=== PATIENT | female | born 1985 | race Caucasian/White ===

== ENCOUNTER 2020-04-26 18:55 | Inpatient (IN) | payer SELFPAY ==
[2020-04-26] VITALS (16 sets, daily range): BP systolic 106–239; BP diastolic 37–175; PULSE 89–137; RESP 12–36; TEMP 37.7; O2SAT 67–97; BMI 59.7
--- NOTE | 2020-04-26 19:29 | XR_ITS ---
WS: [id number] EXAM: AP CHEST: PORTABLE UPRIGHT DATE OF EXAM: 04/26/2020, 1938 hours COMPARISON: NONE HISTORY: Patient is 34 years old with hypertension, retaining fluids. Ulcers on legs. FINDINGS: The cardiac silhouette is slightly enlarged. The mediastinal contours are normal. The pulmonary vascularity is congested. No definite findings of pulmonary edema. The lungs are clear of infiltrate . There is no effusion or pneumothorax. No acute bony abnormality is seen. Enlarged body habitus c ausing attenuation artifact on the examination. XR/XR chest 1V portable [id number] IMPRESSION: Slight pulmonary vascular congestion. No pulmonary edema or consolidating infil trate. Findings suggesting enlargement of the cardiac silhouette. PA and latera l imaging follow-up recommended.
--- NOTE | 2020-04-26 19:30 | ECG_ITS ---
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 Measurements Intervals [place] Rate: 100 P: 48 AL: 137 QRS: -19 QRSD: 113 T: 112 QT: 345 QTc: 446 Interpretive Statements SINUS TACHYCARDIA POSSIBLE LEFT ATRIAL ENLARGEMENT [-0.1mV P WAVE IN V1/V2] No previous ECG available for comparison Electronically Signed On 04-27-2020 13:38:22 CDT by Abhishek Garcia M.D. [email or web address].[id number]
--- NOTE | 2020-04-26 19:33 | W.ED.SOB ---
HPI - SOB/Dyspnea General: Chief Complaint: Shortness of Breath/Dyspnea Stated Complaint: multiple complaints,phy ref Time Seen by Provider: 04/26/20 19:25 Source: patient Mode of arrival: ambulatory Limitations: no limitations History of Present Illness: HPI Narrative: 34-year-old female with a history of high blood pressure and states she has been having difficulty with swallowing for months. She was on Lasix but states she is not currently. Patient states been having shortness of breath over the last day. Patient is in severe distress here and cyanotic. She is tachypneic as well. She is quite hypertensive with blood pressure 239/175. Her oxygen saturation was 67% when she arrived. She denies any vomiting. She denies any chest pain. She states she has had swelling to her legs along with chronic sores. MD elicited complaint: shortness of breath Associated symptoms: Deny abdominal pain, chest pain, fever(s), nausea or vomiting Review of Systems Const: Denies: fever(s), chills, body aches or change in appetite Eyes: Denies: blurry vision or eye discomfort ENMT: Denies: throat pain or dental pain Card: Denies: chest pain Resp: Reports: dyspnea GI: Denies: abdominal pain, nausea, vomiting or diarrhea : Denies: dysuria Musc: Denies: neck pain or back pain Skin/Breast: Reports: erythema, skin swelling and sores Neuro: Denies: headache(s) Psych: Denies: depression Victor Hugo/Lymph: Denies: easy bruising All/Imm: Denies: urticaria Physical Exam Const: COMMON NORMALS: patient oriented x3 GENERAL APPEARANCE: in distress and ill appearing HENMT: COMMON NORMALS: normocephalic and atraumatic HEAD & SCALP: normocephalic and atraumatic Eye: COMMON NORMALS: Equal, round and reactive pupils present and EOMs intact bilaterally PUPIL: Yes Equal, round and reactive pupils present Neck/C-Spine: COMMON NORMALS: full ROM and supple Chest: COMMONS NORMALS: normal inspection of the chest and normal palpation of entire chest wall Resp: EFFORT & INSPECTION: Yes tachypneic, Yes respiratory distress and Yes tripod positioning AUSCULTATION: rales Cardio: COMMON NORMALS: regular rhythm and No murmurs present (Cardio) RATE: tachycardic RHYTHM: regular rhythm GI: COMMON NORMALS: Normal to inspection, nondistended, normoactive bowel sounds present, Soft to palpation, non-tender and no masses PALPATION: Yes Soft to palpation Extremity: COMMON NORMALS: full ROM NARRATIVE EXTREMITY EXAM: Chronic ulcers along with 3+ pitting edema to lower extremities. Neuro: COMMON NORMALS: patient oriented x3, moves all extremities and no focal motor deficits Psych: COMMON NORMALS: mental status grossly normal, Normal thought process present and cooperative THOUGHT PROCESS: Normal thought process present Skin: COMMON NORMALS: no rashes or lesions noted and no wounds GENERAL SKIN EXAM: no rashes or lesions noted Procedures Intubation sedative: Etomidate Mg Given: 20 paralytic: Succinylcholine Mg Given: 250 Laryngoscope: Roberto Carlos ET Tube Size: 8 Tube Secured Depth (cm): 24 Tube Secured Location: teeth Tube Placement Confirmation: visualized tube passing through cords, equal breath sounds bilaterally, no breath sounds over epigastrium and confirmation by capnometry Patient Tolerated Procedure: well Intubation Complications: none Course Vital Signs: Vital signs: Vital Signs Pulse Rate 116 H 04/26/20 21:01 Respiratory Rate 12 04/26/20 20:20 Blood Pressure 137/79 04/26/20 21:01 Pulse Oximetry 90 04/26/20 21:01 MDM - SOB/Dyspnea MDM Narrative: Medical decision making narrative: Patient presents with respiratory failure with hypercapnia. Patient was trialed on BiPAP and CO2 did not improve. Patient continued to be obtunded as well. Patient was intubated here. Patient appears to be fluid overloaded and will start on Lasix. Patient also has wheezings and airways very tight as well and we will continue to give breathing treatments. I spoke to hospitalist will admit at this time. Lab Data: Labs: Lab Results 04/26/20 04/26/20 04/26/20 Range/Units 19:33 19:33 19:33 WBC 11.9 H (4.0-10.0) 10^3/ uL RBC 6.40 H (4.1-5.3) 10^6/u L Hgb 18.3 H (11.5-15.3) g/dL Hct 60.6 H (37.0-47.0) % MCV 94.7 (81-99) fL MCH 28.6 (28.0-34.0) pg MCHC 30.2 (30.0-36.0) g/dL RDW 18.6 H (12.1-15.1) % Plt Count 219 (130-400) 10^3/c mm MPV 10.6 H (7.4-10.4) fL Neut % (Auto) 86.1 % Lymph % (Auto) 6.1 % [place] % (Auto) 6.5 % Eos % (Auto) 0.6 % Baso % (Auto) 0.4 % Neut # (Auto) 10.21 H (1.8-7.7) 10^3/u L Lymph # (Auto) 0.7 L (0.8-4.8) 10^3/u L [place] # (Auto) 0.8 (0.2-0.9) 10^3/u L Eos # (Auto) 0.1 (0.0-0.8) 10^3/u L Baso # (Auto) 0.1 (0.0-0.1) 10^3/u L Nucleated RBC % (a uto) 0 % Nucleated RBCs # 0.0 /100WBC PT 17.00 H (12.1-14.9) SECO NDS INR 1.33 H (0.8-1.2) Specimen Type Sample Site ABG pH (7.35-7.45) ABG pCO2 (35-45) mmHg ABG pO2 (80.0-100.0) mmH g ABG HCO3 (22-26) mmol/L ABG Base Excess (-2.0-2.0) mmol/ L Aiden Test Hematocrit (37-47) % O2 Delivery Device FiO2 % Leasing Assistant ID Sodium 142 (136-145) mmol/L Potassium 3.5 (3.5-5.1) mmol/L Chloride 95 L (98-107) mmol/L Carbon Dioxide 34 H (22-29) mmol/L Anion Gap 16.5 (5-19) BUN 17 (6-20) mg/dL Creatinine 0.7 (0.5-0.9) mg/dL GFR Calculation 95.2 (90-130) mL/min Glucose 172 H (65-115) mg/dL Calculated Osmolal ity 294 (285-295) mOsm/k g Calcium 9.2 (8.5-10.5) mg/dL Total Bilirubin 1.2 (0.15-1.2) mg/dL AST 48 H (0-32) U/L ALT 39 H (0-33) U/L Alkaline Phosphata se 104 (35-105) IU/L Troponin T Baselin e (0-10) ng/L NT-Pro-B Natriuret Pep 4885 H (0-125) pg/mL Total Protein 8.3 (6.6-8.7) g/dL Albumin 3.6 (3.5-5.2) g/dL Globulin 4.7 H (1.3-4.6) g/dL 04/26/20 04/26/20 04/26/20 Range/Units 19:33 20:10 20:50 WBC (4.0-10.0) 10^3/ uL RBC (4.1-5.3) 10^6/u L Hgb (11.5-15.3) g/dL Hct (37.0-47.0) % MCV (81-99) fL MCH (28.0-34.0) pg MCHC (30.0-36.0) g/dL RDW (12.1-15.1) % Plt Count (130-400) 10^3/c mm MPV (7.4-10.4) fL Neut % (Auto) % Lymph % (Auto) % [place] % (Auto) % Eos % (Auto) % Baso % (Auto) % Neut # (Auto) (1.8-7.7) 10^3/u L Lymph # (Auto) (0.8-4.8) 10^3/u L [place] # (Auto) (0.2-0.9) 10^3/u L Eos # (Auto) (0.0-0.8) 10^3/u L Baso # (Auto) (0.0-0.1) 10^3/u L Nucleated RBC % (a uto) % Nucleated RBCs # /100WBC PT (12.1-14.9) SECO NDS INR (0.8-1.2) Specimen Type Arterial Arterial Sample Site Radial, left Radial, left ABG pH 7.17 L* 7.19 L (7.35-7.45) ABG pCO2 101.0 H* 101.0 H* (35-45) mmHg ABG pO2 185.0 H 80.4 (80.0-100.0) mmH g ABG HCO3 36.9 H 38.5 H (22-26) mmol/L ABG Base Excess 3.3 H 4.9 H (-2.0-2.0) mmol/ L Aiden Test Pos Pos Hematocrit 55.3 H 55.3 H (37-47) % O2 Delivery Device Bipap Bipap FiO2 100.0 60.0 % Leasing Assistant ID serape trent Sodium (136-145) mmol/L Potassium (3.5-5.1) mmol/L Chloride (98-107) mmol/L Carbon Dioxide (22-29) mmol/L Anion Gap (5-19) BUN (6-20) mg/dL Creatinine (0.5-0.9) mg/dL GFR Calculation (90-130) mL/min Glucose (65-115) mg/dL Calculated Osmolal ity (285-295) mOsm/k g Calcium (8.5-10.5) mg/dL Total Bilirubin (0.15-1.2) mg/dL AST (0-32) U/L ALT (0-33) U/L Alkaline Phosphata se (35-105) IU/L Troponin T Baselin e 75 H (0-10) ng/L NT-Pro-B Natriuret Pep (0-125) pg/mL Total Protein (6.6-8.7) g/dL Albumin (3.5-5.2) g/dL Globulin (1.3-4.6) g/dL EKG Data^: EKG 1: Attestation: I personally reviewed and interpreted this EKG as follows: EKG Interpretation Date: 04/26/20 EKG interpretation time: 19:50 Interpretation: sinus tach hr [address] or t wave abnormalities qrs 113 qtc 402 Critical Care Time Critical Care Time: Critical Care Time: Yes Total Critical Care Time: 35 Attestation: This case had a high probability of a clinically significant, sudden, or life threatening deterioration of this patient's condition which required my full and direct attention, intervention and personal management. Discharge Plan Discharge Patient Disposition: Admitted As Inpatient Clinical Impression: Respiratory failure with hypercapnia Condition: Stable Prescriptions: No Action triamcinolone acetonide 0.1 % ointment See Rx Instructions .ROUTE .COMPLEX RF: 0 metoprolol tartrate 50 mg tablet 50 mg PO BID RF: 0 buspirone 7.5 mg tablet 7.5 mg PO BID RF: 0 furosemide 20 mg tablet 20 mg PO DAILY RF: 0 escitalopram oxalate 10 mg tablet 10 mg PO DAILY RF: 0 hydrochlorothiazide 12.5 mg tablet 12.5 mg PO BID RF: 0 cholecalciferol (vitamin D3) 1,250 mcg (50,000 unit) capsule 1,250 mcg PO Q7D RF: 0 Coding Level of Care Code ED 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
[2020-04-26] MEDS: labetalol 5 mg/mL SDV 20mL 20 MG IVP (19:38)
[2020-04-26] MEDS: ondansetron 2 mg/ML SDV 2 mL 4 MG IVP (19:39)
[2020-04-26] MEDS: morphine 4 mg/mL SDV 1 mL IVP (19:40)
[2020-04-26] MEDS: LORazepam 2 mg/mL INJ 1 mL 1 MG IVP (19:42)
[2020-04-26 20:13] LABS: Basophils # 0.1 10^3/uL (0.0-0.1); Basophils % 0.4 %; Eosinophils # 0.1 10^3/uL (0.0-0.8); Eosinophils % 0.6 %; Hematocrit 60.6 % (37.0-47.0); Hemoglobin 18.3 g/dL (11.5-15.3); Lymphocytes # 0.7 10^3/uL (0.8-4.8); Lymphocytes % 6.1 %; Mean Corpuscular HGB Conc 30.2 g/dL (30.0-36.0); Mean Corpuscular Hemoglobin 28.6 pg (28.0-34.0); Mean Corpuscular Volume 94.7 fL (81-99); Mean Platelet Volume 10.6 fL (7.4-10.4); Monocytes # 0.8 10^3/uL (0.2-0.9); Monocytes % 6.5 %; Neutrophils # 10.21 10^3/uL (1.8-7.7); Neutrophils % 86.1 %; Nucleated Red Blood Cells % 0 %; Platelet Count 219 10^3/cmm (130-400); Red Cell Distribution Width 18.6 % (12.1-15.1); White Blood Count 11.9 10^3/uL (4.0-10.0)
[2020-04-26] MEDS: naloxone 0.4 mg/ml SDV (20:15)
[2020-04-26 20:23] LABS: Arterial Blood Gas Hematocrit 55.3 % (37-47); Base Excess ABG 3.3 mmol/L (-2.0-2.0); Blood Gas Allen Test Pos; Blood Gas Sample Site Radial, left; Blood Gas Sample Type Arterial; HCO3 ABG 36.9 mmol/L (22-26); Oxygen Device BIPAP
[2020-04-26 20:24] LABS: ABG PH Result 7.17 (7.35-7.45)
--- NOTE | 2020-04-26 20:36 | PC.NURSE ---
Patient's O2 sats are 84% on Bipap. Notified MD Menendez. Awaiting orders.
--- NOTE | 2020-04-26 20:47 | PC.NURSE ---
MD Menendez aware of Patient's current VS. Awaiting new orders.
[2020-04-26 20:52] LABS: Troponin(5th) Baseline 75 ng/L (0-10)
[2020-04-26 20:57] LABS: ABG PH Result 7.19 (7.35-7.45); Arterial Blood Gas Hematocrit 55.3 % (37-47); Base Excess ABG 4.9 mmol/L (-2.0-2.0); Blood Gas Allen Test Pos; Blood Gas Sample Site Radial, left; Blood Gas Sample Type Arterial; HCO3 ABG 38.5 mmol/L (22-26); Oxygen Device BIPAP; PO2 ABG 80.4 mmHg (80.0-100.0)
[2020-04-26 21:01] LABS: Alanine Aminotransferase 39 U/L (0-33); Albumin Level 3.6 g/dL (3.5-5.2); Alkaline Phosphatase 104 IU/L (35-105); Anion Gap 16.5 (5-19); Aspartate Amino Transferase 48 U/L (0-32); Blood Urea Nitrogen 17 mg/dL (6-20); Calcium 9.2 mg/dL (8.5-10.5); Carbon Dioxide 34 mmol/L (22-29); Chloride 95 mmol/L (98-107); Globulin 4.7 g/dL (1.3-4.6); Glomerular Filtration Rate 95.2 mL/min (90-130); Glucose 172 mg/dL (65-115); NT Pro B Type Natriuretic Pept 4885 pg/mL (0-125); Osmolality Calculated 294 mOsm/kg (285-295); Potassium 3.5 mmol/L (3.5-5.1); Sodium 142 mmol/L (136-145); Total Bilirubin 1.2 mg/dL (0.15-1.2); Total Protein 8.3 g/dL (6.6-8.7)
[2020-04-26 21:02] LABS: INR 1.33 (0.8-1.2)
--- NOTE | 2020-04-26 21:22 | XR_ITS ---
WS: [id number] EXAM: AP CHEST: PORTABLE SUPINE DATE OF EXAM: 04/26/2020, 2122 hours COMPARISON: Chest x-ray from earlier on the same date. HISTORY: Patient is 34 years old with respiratory failure. Status post intubation. FINDINGS: The cardiac silhouette is enlarged and similar. The mediastinal contours show interval placement o f an endotracheal tube ending almost at the level of the enrique. Withdrawing slightly recommended. En teric tube crosses the thoracic esophagus overlies the left upper abdomen. The distal aspect of the t ube is not visualized but the side port appears overlying the area of the stomach. The pulmonary va scularity is congested. There is some minimal infiltrate now present in the left hemithorax apex and in the left mid and lower chest. Presumably atelectasis. Some minimal infiltrate right lung base als o most likely atelectasis. There is no effusion or pneumothorax. No acute bony abnormality is seen. XR/XR chest 1V portable [id number] IMPRESSION: Supporting devices in satisfactory position. New minimal infiltrate bilaterally most likely related to atelectasis.
--- NOTE | 2020-04-26 21:30 | ECG_ITS ---
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 Measurements Intervals [place] Rate: 96 P: 27 IL: 153 QRS: 6 QRSD: 117 T: 147 QT: 367 QTc: 464 Interpretive Statements SINUS RHYTHM MODERATE INTRAVENTRICULAR CONDUCTION DELAY [110+ ms QRS DURATION] ST DEVIATION AND MODERATE T-WAVE ABNORMALITY, CONSIDER LATERAL ISCHEMIA [-0.1+ mV T WAVE IN I/aVL/V5/V6] Compared to ECG 04/26/2020 19:50:16 Intraventricular conduction delay now present T-wave abnormality now present Possible ischemia now present Sinus tachycardia no longer present Myocardial infarct finding no longer present Electronically Signed On 04-27-2020 18:13:35 CDT by Abhishek Garcia M.D. [id number]
--- NOTE | 2020-04-26 21:51 | P.HP_ITS ---
Providers/Chief Complaint Chief Complaint: multiple complaints,phy ref History of Present Illness Kari East is a 34 year old female who was brought in by her today for chief complaint of respiratory distress. is at the bedside who is endorsing that for last 2 weeks his was struggling to manage her daily activities on her own, he was helping her going to the bathroom, change clothes etc., he did not notice any fever, excessive sputum production, no recent sick contacts. Since September she has been gaining weight, for her morbid obesity she was started on phentermine which was discontinued after development of skin rash, this medication was started about 6 weeks ago and was discontinued about in a week. She does not carry previous history of CHF, no history of diabetes or hypo-/hyperthyroidism. She does smoke about 1 pack/day, does not drink alcohol. is stating that today they went to the PCP for skin rash, worsening respiratory distress who recommended her to go to the ER right away. Recently she has started taking Lasix and hydrochlorothiazide. She does not use any CPAP or BiPAP at home, no sleep study has been obtained, is endorsing that she sleeps on her stomach with her arms fixed on the sides of the couch. Diagnosis in the ER revealed hypoxic hypercapnic respiratory failure, CHF, high BNP, chest x-ray revealed cardiomegaly with pulmonary venous congestion, significant delta troponin Second EKG showing T wave inversion in lead I and aVL with mild ST depression in lateral leads I have started her on therapeutic dose of Lovenox, started ACS protocol Requested second blood gas At the time of my evaluation she was intubated, Dr. Menendez intubated her because of her respiratory distress, it was a difficult intubation, glide scope was used, he noticed a lot of upper airway secretions. ET tube size 8, chest x-ray reviewed Review of Systems General: Reports: ROS unobtainable due to endotracheal tube Const: Denies: fatigue Medications/Allergies Home Medications Medication Instructions Recorded Confirmed Last Taken Type buspirone 7.5 mg PO BID 04/26/20 04/26/20 04/26/20 History cholecalciferol (vitamin D3) 1,250 mcg PO Q7D 04/26/20 04/26/20 04/25/20 History escitalopram oxalate 10 mg PO DAILY 04/26/20 04/26/20 04/26/20 History furosemide 20 mg PO DAILY 04/26/20 04/26/20 04/26/20 History hydrochlorothiazide 12.5 mg PO BID 04/26/20 04/26/20 04/26/20 History metoprolol tartrate 50 mg PO BID 04/26/20 04/26/20 04/26/20 History triamcinolone acetonide See Rx Instructions .ROUTE .COMPLEX 04/26/20 04/26/20 04/26/20 History Allergies Allergy/AdvReac Type Severity Reaction Status Date / Time ciprofloxacin [From Cipro] Allergy Unknown Unknown Verified 04/26/20 20:10 PFSH Acute PFSH: Medical History Hypertension Morbid obesity Nicotine dependence Polycystic ovary Surgical History H/O adenoidectomy History of tonsillectomy Family History (Updated 04/26/20 @ 22:32 by Vijay Zamarripa MD) Other CAD (coronary artery disease) Hypertension Social History Smoking and tobacco status: heavy tobacco smoker cigarettes [ Other cigarette details: 1 pack/day ] Alcohol intake: current Alcohol intake frequency: holidays/special occasions only Substance/Drug Use: never Household members: family Vitals/I&O/Wt Last Vital Signs Pulse 116 H 04/26/20 21:01 Resp 16 04/26/20 21:41 BP 137/79 04/26/20 21:01 Pulse Ox 90 04/26/20 21:01 Weight last 48 hrs Weight 167.829 kg Physical Exam Narrative: EXAM NARRATIVE: Morbidly obese female currently intubated ET tube size 8, PRVC vent settings tidal volume 450, PEEP 8, FiO2 80%, Currently saturating well, ST depression with T wave inversion noted on second EKG, Anasarca Clear secretions coming from her mouth Severe CHF presentation clinically I did not appreciate any murmur Bilateral assisted breath sounds Skin blister and rash on left wrist area, left knee dried deep punctate lesion Bilateral lower extremity edema with venous stasis dermatitis, hyperemia of left lower extremity Neurological exam not possible because of intubation Abdominal wall edema Data : 04/26/20 19:33 04/26/20 19:33 A&P Assessment and plan (1) Airway intubation performed without difficulty: Status: Acute (2) Acute respiratory failure with hypoxia and hypercapnia: Status: Acute (3) Respiratory failure: Status: Acute (4) New onset of congestive heart failure: Status: Acute (5) Respiratory failure with hypercapnia: Status: Acute Qualifiers: Chronicity: acute Qualified Code(s): J96.02 - Acute respiratory failure with hypercapnia (6) Polycythemia: Status: Acute (7) Obesity hypoventilation syndrome: Status: Acute (8) Sepsis: Status: Acute (9) NSTEMI (non-ST elevated myocardial infarction): Status: Acute Additional A&P Information Sepsis with acute hypoxic hypercarbic respiratory failure Differentials include secondary to new onset CHF with underlying pickwickian syndrome, rule out ACS, PE No outpatient sleep study has been obtained, Propofol for sedation Intubated with ET tube size 8, second blood gas has been reviewed, I have decreased PEEP to 5 and FiO2 50% A lot of upper airway secretions noticed, I would keep her on vancomycin &Zosyn for now, she is septic at this point, she has mild leukocytosis with tachycardia and tachypnea initial presentation, not a candidate for aggressive fluid resuscitation, currently blood pressure stable New onset CHF Echo in the morning, check TSH, lipid profile, Second EKG showing T wave inversion in lead I aVL, second troponin with significant delta, started ACS protocol Rule out PE, I highly doubt she will be able to fit into CT scan machine, start her on full dose therapeutic Lovenox dose Bumex 1 mg every 12, closely monitor for worsening of rash as per the phentermine was discontinued, I am not sure if Lasix also contributed to her skin rash as well if that is the case she will need ethacrynic acid Skin rash Closely monitor as I am giving her Bumex, as per the phentermine was discontinued after development of skin blisters and rash Currently on vancomycin for MRSA coverage Lower extremity venous stasis dermatitis with hyperemia Highly suspicious for DVT Currently on therapeutic dose of Lovenox Will obtain venous Doppler Pickwickian syndrome with polycythemia Patient is a chronic smoker Her bicarb on BMP is greater than 28 which is consistent with obesity hypoventilation syndrome, she would definitely benefit from close follow-up with bariatric clinic Full code N.p.o. DVT prophylaxis not needed currently on Lovenox Attestations Medical Necessity Statement*: Anticipating stay in the hospital cross more than 2 midnights currently need aggressive diuresis for new CHF exacerbation, currently on ACS protocol, intubated for respiratory stress Time Spent in Patient Care: (>than 50% of time spent in counselling and/or direct pt care on unit) . 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
--- NOTE | 2020-04-26 21:53 | PC.NURSE ---
2113 - HR 116 BP 137/79 O2 93 on Bipap. 2114 - 20 mg Etimodate given R AC IV 250 mg Succinylcholine given R AC IV 2115 - 8 Tajik ET tube placed via Dr. Menendez 26 at the lip. 2117 - 18 Tajik OG tube placed via Vineet RODRIGUEZ. 2118 - Chest Xray revealed tubed needed to be pulled out 2 cm. 2121 - ET tube pulled to 24 at the lip. 2144 - 2nd Xray confirmed correct placement of the ET tube and OG. 2149 - RT suctioned pink frothy sputum out of patient's ET tube. 2154 - Inpatient MD at bedside performing initial assessment.
--- NOTE | 2020-04-26 22:18 | PC.NURSE ---
18 Amharic urinary catheter placed with the assistance of Karis ALBA and Alis RODRIGUEZ. Patient has 4+ edema in her groin.
[2020-04-26] MEDS: FUROsemide 10 mg/mL SDV 10mL 60 MG IVP (22:24)
--- NOTE | 2020-04-26 22:35 | PC.NURSE ---
Patient's left. Patient has no belongings at bedside at this time.
[2020-04-27] VITALS (99 sets, daily range): BP systolic 105–158; BP diastolic 52–90; PULSE 73–120; RESP 16–20; TEMP 37–37.6; O2SAT 85–96
[2020-04-27 00:06] LABS: D Dimer 12.62 ug/mIFEU (0-0.59)
[2020-04-27 00:09] LABS: Chol HDL Ratio 3.67 mg/dL (0.0-4.40); Cholesterol 165 mg/dL (0-200); HDL Cholesterol 45 mg/dL (60-100); LDL Cholesterol Calculated 103 mg/dL (50-129); LDL HDL Ratio 2.29 RATIO (0.00-3.22); Thyroid Stimulating Hormone 1.41 uIU/mL (0.27-4.20); Triglycerides 84 mg/dL (0-150)
[2020-04-27] MEDS: clopidogrel 300 mg Tablet NG-TUBE (00:21)
[2020-04-27] MEDS: aspirin 325 mg EC Tablet XX (00:21)
--- NOTE | 2020-04-27 00:36 | PC.PHAR ---
Vancomycin is dosed at 1500mg IVPB every 8 hours to produce a predicted trough level of 12.29 (population based pharmacokinetic analysis). A trough level has been ordered from the lab to be obtained before the fourth dose to confirm and adjust if needed. The Zosyn is dosed at 3.375gm IVPB every 8 hours based on creatinine clearance of 181.88, each dose to be infused over 4 hours per extended infusion protocol.
[2020-04-27] MEDS: bumetanide 0.25 mg/mL SDV 10 mL 1 MG IV (00:53)
[2020-04-27] MEDS: enoxaparin 80 mg/0.8 mL Syringe 70 MG SUBCUT ×3 (00:54→23:15)
[2020-04-27] MEDS: enoxaparin 100 mg/mL Syringe SUBCUT ×3 (00:55→23:15)
[2020-04-27] MEDS: propofol 1,000 MG/100 ML INJ 20.1 MG IV ×2 (00:55→05:11)
[2020-04-27 01:20] LABS: Basophils % 0.2 %; Eosinophils % 0.1 %; Hematocrit 54.1 % (37.0-47.0); Hemoglobin 16.2 g/dL (11.5-15.3); Lymphocytes # 0.3 10^3/uL (0.8-4.8); Lymphocytes % 1.5 %; Mean Corpuscular HGB Conc 29.9 g/dL (30.0-36.0); Mean Corpuscular Hemoglobin 27.9 pg (28.0-34.0); Mean Corpuscular Volume 93.3 fL (81-99); Mean Platelet Volume 10.7 fL (7.4-10.4); Monocytes % 5.6 %; Neutrophils # 15.88 10^3/uL (1.8-7.7); Neutrophils % 92.3 %; Nucleated Red Blood Cells % 0 %; Platelet Count 221 10^3/cmm (130-400); Red Cell Distribution Width 17.8 % (12.1-15.1); White Blood Count 17.2 10^3/uL (4.0-10.0)
[2020-04-27] MEDS: piperacillin-tazobactam 3.375 GM in sodium chloride 0.9% (plus) 50 ML IV ×4 (01:30→23:14)
--- NOTE | 2020-04-27 01:30 | ECG_ITS ---
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 Measurements Intervals [place] Rate: 85 P: 21 NH: 164 QRS: 10 QRSD: 132 T: 182 QT: 397 QTc: 473 Interpretive Statements SINUS RHYTHM INTRAVENTRICULAR CONDUCTION DELAY [130+ ms QRS DURATION] Compared to ECG 04/26/2020 21:55:28 T-wave abnormality no longer present Possible ischemia no longer present Electronically Signed On 04-27-2020 18:12:45 CDT by Abhishek Garcia M.D. [id number]
[2020-04-27 01:36] LABS: Anion Gap 10.8 (5-19); Blood Urea Nitrogen 19 mg/dL (6-20); Calcium 8.2 mg/dL (8.5-10.5); Carbon Dioxide 34 mmol/L (22-29); Chloride 100 mmol/L (98-107); Glomerular Filtration Rate 81.6 mL/min (90-130); Glucose 192 mg/dL (65-115); Osmolality Calculated 294 mOsm/kg (285-295); Potassium 3.8 mmol/L (3.5-5.1); Sodium 141 mmol/L (136-145)
[2020-04-27 01:38] LABS: Troponin 5 6HR 99.07 ng/L (0-10)
[2020-04-27 01:41] LABS: Troponin 5 6HR Delta 24.07 ng/L (0-12)
[2020-04-27] MEDS: ipratropium-albuterol 3 mL Neb INHALATION ×6 (02:46→20:17)
[2020-04-27 05:13] LABS: ABG PCO2 52.2 mmHg (35-45); ABG PH Result 7.46 (7.35-7.45); Arterial Blood Gas Hematocrit 50.2 % (37-47); Base Excess ABG 10.9 mmol/L (-2.0-2.0); Blood Gas Allen Test Pos; Blood Gas Operator Identificat JB; Blood Gas Sample Site Radial, right; Blood Gas Sample Type Arterial; Blood Gas Tidal Volume 0.45; HCO3 ABG 37.1 mmol/L (22-26); Oxygen Device VENT
[2020-04-27] MEDS: propofol 1,000 MG/100 ML INJ 30.2 MG IV (07:13)
[2020-04-27] MEDS: lisinopril 10 mg Tablet PO (08:40)
[2020-04-27] MEDS: atorvastatin 40 mg Tablet 80 MG NG-TUBE (08:40)
[2020-04-27] MEDS: clopidogrel 75 mg Tablet NG-TUBE (08:41)
[2020-04-27] MEDS: aspirin 81 mg EC Tablet XX (08:41)
[2020-04-27 08:50] LABS: Estmated Average Glucose 148; Hemoglobin A1C 6.8 % (4.0-6.0)
--- NOTE | 2020-04-27 09:26 | P.PN_ITS ---
Subjective Subjective: Interval history: History and physical reviewed in detail. At time of this note I did not yet contacted family regarding further history. Patient is sedated, on ventilator currently. Medications: Reviewed: Yes Vitals/I&O/Wt Last Vital Signs Temp 99.0 F 04/27/20 05:30 Pulse 82 04/27/20 07:55 Resp 16 04/27/20 07:57 BP 147/75 04/27/20 07:30 Pulse Ox 90 04/27/20 07:55 04/26/20 04/27/20 04/27/20 22:59 06:59 14:59 Intake Total 360.967 / 360.967 83.723 / 83.723 Output Total 1700 / 1700 Balance -1339.033 / -1339.033 83.723 / 83.723 Weight last 48 hrs Weight 167.829 kg Physical Exam Narrative: EXAM NARRATIVE: General exam demonstrates a sedated female, who appears comfortable. HEENT: Patient sedated. Endotracheal tube noted. Neck is supple, obese Cardiovascular regular rate and rhythm, heart sounds distant Lungs a faint expiratory wheeze Abdomen is soft, obese, edema noted with evidence of chronic edema with induration demonstrates Loredo Extremities 3+ edema, woody edema. Significant erythema lower extremities bilaterally. Cap refill less than 2 seconds great toes bilaterally Neurologic: Sedated Urinary Catheter Management^: Loredo: Cath Placed During This Visit: yes Urinary Catheter Date of Insertion: 04/27/20 Urinary Catheter Time of Insertion: 22:16 Data : 04/27/20 01:10 04/27/20 01:10 Other data: Chest x-ray, ventilator settings, ABG all reviewed. A&P Assessment and plan (1) Acute respiratory failure with hypoxia and hypercapnia: Etiology probably multifactorial. She likely has obesity hypoventilation. Heart failure may have contributed, likely diastolic and chronic. Cannot rule out COPD, pulmonary hypertension, severe sleep apnea, contributing pneumonia, or possibility of pulmonary emboli currently.. Check Covid 19 Currently on pressure control, FiO2 of 75%. Secondary to high settings, initial difficult intubation, multiple comorbidities we will have pulmonary critical care evaluate the patient as well. Propofol, fentanyl for sedation Status: Acute (2) New onset of congestive heart failure: Continue Bumex 2 mg IV every 12 hours Await echocardiogram Status: Acute (3) Obesity hypoventilation syndrome: Will likely need BiPAP at night when discharged from the hospital Status: Acute (4) Sepsis: Concern regarding possibility of pneumonia Concern regarding possibility of cellulitis of lower extremities although this may represent venous stasis with hyperemia. Awaiting venous duplex as well. For now continue vancomycin and Zosyn Check blood cultures Check sputum culture She is fluid overloaded. It is contraindicated to give significant IV fluids Status: Acute (5) NSTEMI (non-ST elevated myocardial infarction): Continue statin, Plavix, aspirin, full anticoagulation Initiate beta-tali low dose. She was on this at home and I want to prevent any beta-tali withdrawal. Status: Acute Additional A&P Information Tobacco dependency History of hypertension Full code Lovenox will serve for DVT prophylaxis Attestations Medical Necessity Statement*: Needs continued hospital stay secondary to respiratory failure requiring ventilatory support Critical Care Time: 43 minutes of critical care time spent at bedside and reviewing patient's case, visiting with nursing and subspecialties, developing plan in this critically ill patient with high risk for decompensation. Coding Level of Care Code Acute Automotive Product Specialist for Nalini Manning Diagnoses Acute respiratory failure with hypoxia and hypercapnia J96.01; J96.02 New onset of congestive heart failure I50.9 Obesity hypoventilation syndrome E66.2 Sepsis A41.9 NSTEMI (non-ST elevated myocardial infarction) I21.4
[2020-04-27 09:35] LABS: SARS Covid-2 Antigen Negative (Negative)
[2020-04-27 10:29] LABS: Hepatitis A Antibody IgM Non-Reactive (Nonreactive); Hepatitis B Core IgM Non-Reactive (Nonreactive); Hepatitis B Surface Antigen Non-Reactive (Nonreactive); Hepatitis C Virus Antibody Non-Reactive (Nonreactive)
[2020-04-27] MEDS: propofol 1,000 MG/100 ML INJ 50 MG IV (10:55)
[2020-04-27] MEDS: bumetanide 0.25 mg/mL SDV 10 mL 2 MG IV ×2 (12:07→23:14)
[2020-04-27] MEDS: propofol 1,000 MG/100 ML INJ 25 MG IV (12:08)
--- NOTE | 2020-04-27 12:10 | XR_ITS ---
WS: [id number] EXAM: AP CHEST: PORTABLE UPRIGHT DATE OF EXAM: 04/27/2020, 1237 hours COMPARISON: Chest x-ray from one day prior. HISTORY: Patient is 34 years old with PICC line placement. FINDINGS: The cardiac silhouette is enlarged but similar. The mediastinal contours are similar. Endotracheal tube and enteric tube remain in place. Endotracheal tube in good position. New right-sided PICC line ends in the SVC region. The pulmonary vascularity is congested. Progression in bibasilar infiltra lachelle left greater than right has occurred. The right lateral aspect of the chest is not included on e dataset. Small left effusion. No pneumothorax. No acute bony abnormality is seen. XR/XR chest 1V portable [id number] IMPRESSION: PICC line ends in the SVC region. Endotracheal tube in satisfactory position. I ncreasing bibasilar infiltrates and small left effusion
--- NOTE | 2020-04-27 14:58 | PC.NURSE ---
PATIENTS MOTHER AND UPDATED ON CONDITION OF PATIENT AND THAT THEY WOULD NOT BE ABLE TO TRULY VISIT UNTIL SHE WAS OFFICIALLY CLEARED OF COVID. THEY WERE TOLD ABOUT HER HIGH NEEDS ON THE VENT AND THEY SHARED WITH ME THAT SHE HAD SEEN SOME DOCTORS ABOUT HER RASHES AND SWELLING BUT HAD HAD A BAD REACTION TO LASIX AND ONE DOCTOR PUT HER ON PREDNISONE THINKING SHE HAD POISON VICKIE. HER SWELLING HAD GOTTEN SO BAD HER WAS HAVING TO DO HER YAO CARE FOR HER . SHE CLAIMED HER BAD KNEE MADE HER GAIN WEIGHT TO THIS EXTENT. THE CHF DIAGNOSIS HAD BEEN TOLD TO HER BACK IN SEP OF THIS YEAR BUT SHE WAS IN DENIAL . SHE HAS TWO CHILDREN ONE BEING A SPECIAL NEEDS CHILD. SHE WAS AFRAID TO COME SOONER FOR MOREDETAILED CARE SHE IS UNINSURED.
--- NOTE | 2020-04-27 15:08 | NUR.SHIFT ---
PATIENT HAS NO TOLERANCE FOR TURNING OR LAYING FLAT. HER ABDOMEN IS VERY HARD AND DISTENDED. THE LEFT SIDE HAS BOGGY EDEMA , MIDDLE ARE IS TAUT AND THE RIGHT SIDE IS RIPPLED AND HARD. HER SATS WENT TO 60 ON AQUICK ROLL IN THE BARIATRIC BED USING THE AIR FLOW BLANKET AND WE HAD TO GO UP TO 100% FIO2 TO RECOVER HER 93% SATS. PILLOW TURNS ARE NOW DONE WHILE BLANKET INFLATED AND 2 PILLOWS PLACED 10 SECONDS OF DISTURBANCE AND HER SATS STILL DROP FOR A FEW MINUTES. HER SAID SHE HAS REFUSED TO MOVE OFTEN EVIDENCED BY HER SORES AND DIRTY SKIN. ALSO SAID SHE CAN NO LONGER SHOWER OR WIPE HERSELF. SHE WOULD BENEFIT FROM REHAB.
[2020-04-27] MEDS: propofol 1,000 MG/100 ML INJ 20 MG IV (15:42)
--- NOTE | 2020-04-27 15:42 | PM.CONSULT ---
Providers/Reason For Consult Consulting Physican/Specialty*: Dr. Garcia Datar/pulmonology Reason for Consult*: Ventilator management Attending Physician: El Clarso MD History of Present Illness History of Present Illness Kari East is a 34 year old female went to the PCP for skin rash and found to be in respiratory distress and brought to ER by her . As per the patient is unable to do her daily activities for the last 2 weeks. He reported not noticing any fever, cough, no recent sick contacts. Since September she has been gaining weight, for her morbid obesity she was started on phentermine which was discontinued after development of skin rash, this medication was started about 6 weeks ago and was discontinued about in a week. No prior history of CHF, diabetes, or hypo-/hyperthyroidism. She does smoke about 1 pack/day. Recently she has started taking Lasix and hydrochlorothiazide. She does not use any CPAP or BiPAP at home, no sleep study has been obtained, is endorsing that she sleeps on her stomach with her arms fixed on the sides of the couch. Labs on admission show hypoxic hypercapnic respiratory failure, high BNP, and imaging revealed cardiomegaly with pulmonary venous congestion, significant delta troponin. Second EKG showing T wave inversion in lead I and aVL with mild ST depression in lateral leads. Started on Lovenox therapeutic dose as per ACS protocol and patient was intubated in the ED. As per the ED physician it was a difficult intubation with a lot of upper airway secretions. Called for ventilator management and evaluation for possible extubation morbidly obese patient with possible obesity hypoventilation syndrome/CHF Review of Systems General: Reports: ROS unobtainable due to mental status Meds/Allergies Home Medications and Allergies Home Medications Medication Instructions Recorded Confirmed Last Taken Type cholecalciferol (vitamin D3) 1,250 mcg PO Q7D 04/26/20 04/26/20 04/25/20 History escitalopram oxalate 10 mg PO DAILY 04/26/20 04/26/20 04/26/20 History hydrochlorothiazide 12.5 mg PO BID 04/26/20 04/26/20 04/26/20 History metoprolol tartrate 50 mg PO BID 04/26/20 04/26/20 04/26/20 History triamcinolone acetonide See Rx Instructions .ROUTE .COMPLEX 04/26/20 04/26/2004/26/20 History Allergies Allergy/AdvReac Type Severity Reaction Status Date / Time ciprofloxacin [From Cipro] Allergy Unknown Unknown Verified 04/26/20 20:10 Current Medications Current Medications Generic Name Dose Route Start Last Admin Trade Name Freq PRN Reason Stop Dose Admin Albuterol/Ipratropium 3 ml 04/27/20 09:00 04/27/20 14:51 Duoneb INHALATION 3 ml Q6H.RESPIRATORY JOSE LUIS Administration Aspirin 81 mg 04/27/20 09:00 04/27/20 08:41 Aspirin Ec XX 81 mg DAILY JOSE LUIS Administration Atorvastatin Calcium 80 mg 04/27/20 09:00 04/27/20 08:40 Lipitor NG-TUBE 80 mg DAILY JOSE LUIS Administration Bumetanide 2 mg 04/27/20 12:00 04/27/20 12:07 Bumex IV 2 mg Q12H JOSE LUIS Administration Clopidogrel Bisulfate 75 mg 04/27/20 09:00 04/27/20 08:41 Plavix NG-TUBE 75 mg DAILY JOSE LUIS Administration Enoxaparin Sodium 70 mg 04/27/20 00:15 04/27/20 12:07 Lovenox SUBCUT 70 mg Q12H JOSE LUIS Administration Enoxaparin Sodium 100 mg 04/27/20 00:15 04/27/20 12:08 Lovenox SUBCUT 100 mg Q12H JOSE LUIS Administration Fentanyl 1,000 mcg/ Sodium 100 mls @ 0 mls/hr 04/26/20 21:30 04/27/20 12:09 Chloride IV 50 mcg/hr .Q0M JOSE LUIS 5 mls/hr Administration Protocol Per Protocol Piperacillin Sod/Tazobactam 50 mls @ 12.5 mls/hr 04/26/20 23:40 04/27/20 15:37 Sod 3.375 gm/ Sodium Chloride IV 12.5 mls/hr Q8H JOSE LUIS Administration Protocol As Directed Propofol 1,000 mg in 100 mls @ 0 mls/hr 04/26/20 23:40 04/27/20 12:08 Diprivan IV 24.83 mcg/kg/min .Q0M JOSE LUIS 25 mls/hr Administration Protocol Per Protocol Vancomycin HCl 1,500 mg/ 250 mls @ 250 mls/hr 04/27/20 01:00 04/27/20 15:38 Sodium Chloride IV 166 mls/hr Q8H JOSE LUIS Administration Protocol As Directed Insulin Aspart 0 unit 04/27/20 12:00 04/27/20 12:07 Novolog SUBCUT 2 unit WM&BEDTIME JOSE LUIS Administration Protocol Lisinopril 10 mg 04/27/20 09:00 04/27/20 08:40 Prinivil PO 10 mg DAILY JOSE LUIS Administration PFSH Acute PFSH: Medical History Hypertension Morbid obesity Nicotine dependence Polycystic ovary Surgical History H/O adenoidectomy History of tonsillectomy Family History Father Diabetes CAD (coronary artery disease) Hypertension Family/Other Chronic kidney disease (CKD) Social History Smoking and tobacco status: heavy tobacco smoker cigarettes [ Other cigarette details: 1 pack/day ] Alcohol intake: current Alcohol intake frequency: holidays/special occasions only Substance/Drug Use: never Household members: family Vitals/I&O/Wt Last Vital Signs Temp 98.9 F 04/27/20 14:00 Pulse 90 04/27/20 14:15 Resp 18 04/27/20 14:00 BP 143/78 04/27/20 14:15 Pulse Ox 91 04/27/20 14:15 04/27/20 04/27/20 04/27/20 06:59 14:59 22:59 Intake Total 360.967 / 360.967 680.932 / 680.932 37.5 / 718.432 Output Total 1700 / 1700 1000 / 1000 Balance -1339.033 / -1339.033 -319.068 / -319.068 37.5 / -281.568 Weight last 48 hrs Weight 370 lb Physical Exam Narrative: EXAM NARRATIVE: PHYSICAL EXAM: General: lying in bed, sedated and intubated. HEENT:NCAT, PERRLA, EOMI Neck: Supple Lungs: Distant breath sounds, mild expiratory wheeze Heart: s1/s2, RRR Abd: Obese, pitting intact abdominal wall, NT, reduced BS Extremities: Bilateral lower extremity edema, erythemanoted on bilateral legs DIRECTOR OF NEUROLOGY: sedated and limited DIRECTOR OF NEUROLOGY exam possible. SKIN: Bilateral legs erythema positive Urinary Catheter Management^: Loredo: Cath Placed During This Visit: yes Reason for Continuing Indwelling Catheter: Accurate Measurement of Urinary Output in Critically Ill Patients Urinary Catheter Date of Insertion: 04/27/20 Urinary Catheter Time of Insertion: 22:16 Data Micro: Micro: Microbiology 04/27/20 10:35 Blood Culture - Pr eliminary Blood SPECIMEN [facility] 04/27/20 10:35 Blood Culture - Pr eliminary Blood SPECIMEN [facility] A&P Assessment and plan (1) NSTEMI (non-ST elevated myocardial infarction): Status: Acute (2) Sepsis: Status: Acute Qualifiers: Sepsis type: sepsis due to unspecified organism Sepsis acute organ dysfunction status: with acute organ dysfunction Severe sepsis acute organ dysfunction type: acute respiratory failure Acute respiratory failure type: with hypercapnia Severe sepsis shock status: without septic shock Qualified Code(s): A41.9 - Sepsis, unspecified organism; R65.20 - Severe sepsis without septic shock; J96.02 - Acute respiratory failure with hypercapnia (3) Obesity hypoventilation syndrome: Status: Acute (4) Acute respiratory failure with hypoxia and hypercapnia: Status: Acute (5) New onset of congestive heart failure: Status: Acute (6) Cellulitis: Status: Acute Qualifiers: Site of cellulitis: extremity Site of cellulitis of extremity: lower extremity Laterality: right Qualified Code(s): L03.115 - Cellulitis of right lower limb (7) MARTINEZ (obstructive sleep apnea): Status: Acute (8) Morbid obesity with alveolar hypoventilation: Status: Acute 34-year-old female Ms. Kari East admitted for acute hypoxic hypercapnic respiratory failure likely secondary to obesity hypoventilation syndrome and acute heart failure secondary to ongoing NSTEMI. #Acute hypoxic hypercapnic respiratory failure likely secondary to obesity hypoventilation syndrome-possible acute CHF secondary to ongoing NSTEMI #OHS- MARTINEZ in morbidly obese patient -Currently on pressure support ventilation with PIP 30, PEEP 12, rate 16, FiO2 90% -Latest ABG on 60% FiO2 and pressure support ventilation: 7.4 6/52/55/37 -Can further go up on PEEP up to 16 if blood pressure allows -Patient clinically looks significantly volume overloaded and very high BNP favor coexisting CHF exacerbation -Patient needs to be net negative to facilitate extubation: On Bumex 2 mg twice daily; consult nephrology -Awaiting echo reports to assess cardiac function -Currently on Lovenox for ACS protocol and needs cardiology evaluation -Continue Vanco/Zosyn for? Pneumonia and bilateral lower leg cellulitis until cultures reported -Can DC vancomycin if MRSA nares negative -Monitor electrolytes while on electrolytes Overall she will be very challenging to extubate because of significant CHF and morbid obesity. Her CHF management needs to be optimized and she should be diuresed well to keep her net negative for several days while monitoring electrolytes and evaluating every day with spontaneous breathing trials for possible extubation. At this point it seems it will take several days, if exceeds more than 7 days then it would be ideal to proceed with tracheostomy as it will help her with her MARTINEZ-OHS Rest of the management as per primary ICU team Case discussed with Dr. Claros-hospitalist on the case Consult Attestations Medical Necessity Statement: Acute hypoxic hypercapnic respiratory failure Critical Care Time: Critical Care Time (min): 45 Coding Level of Care Code New Pt Acute Energy Control Officer for Chg Fwd Patient Type New History Comprehensive Exam Comprehensive Medical Decision Making High Complexity Diagnoses NSTEMI (non-ST elevated myocardial infarction) I21.4 Sepsis A41.9; R65.20; J96.02 Sepsis type: sepsis due to unspecified organism Sepsis acute organ dysfunction status: with acute organ dysfunction Severe sepsis acute organ dysfunction type: acute respiratory failure Acute respiratory failure type: with hypercapnia Severe sepsis shock status: without septic shock Obesity hypoventilation syndrome E66.2 Acute respiratory failure with hypoxia and hypercapnia J96.01; J96.02 New onset of congestive heart failure I50.9 Cellulitis L03.115 Site of cellulitis: extremity Site of cellulitis of extremity: lower extremity Laterality: right MARTINEZ (obstructive sleep apnea) G47.33 Morbid obesity with alveolar hypoventilation E66.2 Time Spent (min) 45
[2020-04-27 16:52] LABS: Glucose Point of Care 117 mg/dL (70-110)
[2020-04-27] MEDS: metoprolol tartrate 25 mg Tablet 12.5 MG OG-TUBE (16:53)
[2020-04-27] MEDS: BuSPIRONE 5 mg Tablet 7.5 MG PO (16:54)
--- NOTE | 2020-04-27 17:32 | PC.NURSE ---
tolerating turns better as long as she is not turned high on one side. was able to tuck pillows and pull her up in bed if blow up pull sheet attached and on. family ie mother and father saw her from outside the the room . patient awoke and opened her eyes and wiggled her fingers at them . she admitted to pain so fentanyl was increased to 75 and after the family left i turned her to 25 mcg from twenty on the dipravan.
[2020-04-27 18:52] LABS: Glucose Point of Care 158 mg/dL (70-110)
[2020-04-27] MEDS: propofol 1,000 MG/100 ML INJ 25.2 MG IV (20:39)
[2020-04-27] MEDS: pantoprazole 40 mg SDV IVP (20:42)
[2020-04-27 21:30] LABS: Glucose Point of Care 104 mg/dL (70-110)
--- NOTE | 2020-04-27 23:40 | USCV_ITS ---
Kari East Age: 34 Gender: F : 1985 Exam Date: 04/27/2020 06:55 Ordering Phys: Vijay Zamarripa MD Technologist: Annmarie Nevarez [place]am Location: [facility] [place]: Suspicious for DVT HISTORY: Lower extremity swelling. PROCEDURES: Comparison: none available. Venous duplex imaging was performed in bilateral lower extremities. The following venous structures were evaluated: common femoral vein, profunda vein, proximal portion of the greater saphenous vein, superficial femoral vein, and the popliteal vein and peroneal trunk.. Serial augmentation maneuvers, and spectral Doppler flow evaluation were performed. FINDINGS: Examination was technically very limited due to body habitus. No evidence of DVT seen in any vessel where visualized at this time taking into consideration the limitations. CONCLUSIONS No DVT bilateral lower extremities. Limited examination. Dr. Justyna Shukla DO (Electronically Signed) Final Date: 27 April 2020 10:47 S
--- NOTE | 2020-04-27 23:40 | USCV_ITS ---
Kari East Age: 34 Gender: F : 1985 Exam Date: 04/27/2020 06:35 Ordering Phys: Vijay Zamarripa MD Technologist: Annmarie Nevarez Exam Location: [facility] [place] Indication: New CHF BP: 145 / 71 HR: 76 Rhythm: Sinus Technical Quality: Poor because of body habitus MEASUREMENTS (Male / Female) Normal Values 2D ECHO LV Diastolic Diameter PLAX 5.3 cm 4.2 - 5.9 / 3.9 - 5.3 cm LV Systolic Diameter PLAX 4.0 cm LV Chamber Size 5.7 cm IVS Diastolic Thickness 1.9 cm 0.6 - 1.0 / 0.6 - 0.9 cm IVS Systolic Thickness 2.0 cm LVPW Diastolic Thickness 1.9 cm 0.6 - 1.0 / 0.6 - 0.9 cm LVPW Systolic Thickness 2.5 cm RV Chamber Size 3.1 cm LVOT Diameter 2.0 cm LV Ejection Fraction 2D Teich 49.2 % LA Diameter 4.8 cm LA Width 4.1 cm LA Height 6.3 cm RA Width 3.6 cm RA Height 6.1 cm Aorta at Sinotubular Diameter 2.6 cm M-MODE LV Diastolic Diameter MM 6.4 cm 4.2 - 5.9 / 3.9 - 5.3 cm LV Systolic Diameter MM 4.6 cm LV Ejection Fraction MM Teich 52.9 % IVS Diastolic Thickness MM 2.1 cm 0.6 - 1.0 / 0.6 - 0.9 cm IVS Systolic Thickness MM 2.6 cm LVPW Diastolic Thickness MM 2.0 cm 0.6 - 1.0 / 0.6 - 0.9 cm LVPW Systolic Thickness MM 2.3 cm Aortic Annulus Diameter 3.1 cm LA Ao Ratio MM 1.5 MV E Point Septal Separation 1.1 cm DOPPLER AV Peak Velocity 118.0 cm/s LVOT Peak Velocity 82.0 cm/s AV Area Cont Eq vti 2.3 cm squared AV Area Cont Eq pk 2.2 cm squared MV Area PHT 3.5 cm squared Mitral E to A Ratio 1.5 MV E' Velocity 5.0 cm/s Mitral E to MV E' Ratio 16.3 Mitral E to LV E' Lateral Ratio 19.5 Mitral E to LV E' Septal Ratio 14.0 TV Peak E Velocity 87.0 cm/s PV Peak Velocity 109.0 cm/s RV Acceleration Time 0.1 s RV Ejection Time 0.3 s RV AcT/ET 0.3 FINDINGS Left Ventricle Normal left ventricular cavity size. Mildly decreased left ventricular systolic function. Left ventricular ejection fraction is estimated at 50 %. Please note that this is a sub- optimal image quality study therefore cannot assess wall motion and ejection fraction accurately.Grade I/IV diastolic dysfunction (abnormal relaxation filling pattern), normal to mildly elevated filling pressures. Right Ventricle Right ventricle not well visualized. Probably normal. Right Atrium The right atrium is normal in size. Left Atrium The left atrium is normal in size. Mitral Valve Thickened mitral valve. No mitral valve stenosis. Trace mitral valve regurgitation. Aortic Valve Aortic valve sclerosis without stenosis or regurgitation. Tricuspid Valve Tricuspid valve not well visualized. Pulmonic Valve Structurally normal pulmonic valve without significant stenosis. There is no pulmonic regurgitation. Pericardium Normal pericardium without effusion. Aorta Normal ascending aorta dimension. CONCLUSIONS 1-Normal left ventricular cavity size. Mildly decreased left ventricular systolic function. Left ventricular ejection fraction is estimated at 50 %. Please note that this is a sub- optimal image quality study therefore cannot assess wall motion and ejection fraction accurately.Grade I/IV diastolic dysfunction (abnormal relaxation filling pattern), normal to mildly elevated filling pressures. 2-Right ventricle not well visualized. Probably normal. 3-Aortic valve sclerosis without stenosis or regurgitation. 4-Thickened mitral valve. No mitral valve stenosis. Trace mitral valve regurgitation. 5-There is no pericardial effusion. 6-There are no prior echocardiogram studies to compare. Vijay Douglass MD (Electronically Signed) Final Date: 27 April 2020 20:23 S
[2020-04-28] VITALS (62 sets, daily range): BP systolic 109–155; BP diastolic 60–87; PULSE 52–80; RESP 10–18; TEMP 35.9–37.4; O2SAT 87–96
[2020-04-28] MEDS: propofol 1,000 MG/100 ML INJ 30.2 MG IV ×3 (00:31→06:36)
[2020-04-28 00:37] LABS: Vancomycin Trough 17.8 ug/mL (10-15)
[2020-04-28] MEDS: ipratropium-albuterol 3 mL Neb INHALATION ×4 (03:05→20:22)
[2020-04-28 03:33] LABS: Basophils % 0.1 %; Eosinophils % 0.3 %; Hematocrit 48.1 % (37.0-47.0); Hemoglobin 14.8 g/dL (11.5-15.3); Lymphocytes # 0.8 10^3/uL (0.8-4.8); Lymphocytes % 7.6 %; Mean Corpuscular HGB Conc 30.8 g/dL (30.0-36.0); Mean Corpuscular Hemoglobin 27.7 pg (28.0-34.0); Mean Corpuscular Volume 90.1 fL (81-99); Mean Platelet Volume 10.8 fL (7.4-10.4); Monocytes % 9.5 %; Neutrophils # 8.46 10^3/uL (1.8-7.7); Neutrophils % 82.1 %; Nucleated Red Blood Cells % 0 %; Platelet Count 190 10^3/cmm (130-400); Red Blood Count 5.34 10^6/uL (4.1-5.3); Red Cell Distribution Width 17.4 % (12.1-15.1); White Blood Count 10.3 10^3/uL (4.0-10.0)
[2020-04-28 04:19] LABS: Alanine Aminotransferase 20 U/L (0-33); Albumin Level 2.2 g/dL (3.5-5.2); Alkaline Phosphatase 57 IU/L (35-105); Blood Urea Nitrogen 20 mg/dL (6-20); Calcium 8.3 mg/dL (8.5-10.5); Carbon Dioxide 36 mmol/L (22-29); Chloride 100 mmol/L (98-107); Globulin 3.5 g/dL (1.3-4.6); Glomerular Filtration Rate 81.2 mL/min (90-130); Glucose 108 mg/dL (65-115); Magnesium 1.7 mg/dL (1.7-2.3); Osmolality Calculated 297 mOsm/kg (285-295); Sodium 145 mmol/L (136-145); Total Bilirubin 1.1 mg/dL (0.15-1.2); Total Protein 5.7 g/dL (6.6-8.7)
[2020-04-28 04:19] LABS: ABG PCO2 52.5 mmHg (35-45); Base Excess ABG 14.6 mmol/L (-2.0-2.0); Blood Gas Allen Test Pos; Blood Gas Sample Site Radial, right; Blood Gas Sample Type Arterial; HCO3 ABG 40.6 mmol/L (22-26); Oxygen Device VENT; PO2 ABG 62.5 mmHg (80.0-100.0)
[2020-04-28 04:23] LABS: Anion Gap 12.8 (5-19); Aspartate Amino Transferase 27 U/L (0-32); Potassium 3.8 mmol/L (3.5-5.1)
--- NOTE | 2020-04-28 07:00 | XR_ITS ---
WS: [id number] EXAM: AP CHEST: PORTABLE UPRIGHT DATE OF EXAM: 04/28/2020, 0611 hours COMPARISON: Chest x-rays from 04/26 and 04/27/2020 HISTORY: Patient is 35 years old with respiratory failure. Follow-up pulmonary infiltrates. FINDINGS: The cardiac silhouette is enlarged but similar. The mediastinal contours again demonstrate endotra cheal tube and enteric tube and right-sided PICC line in place unchanged in position. Distal aspect o f the enteric tube not visualized. The pulmonary vascularity is normal. There is progressive devel oping infiltrate within the left lung in the upper and midlung zones. Persistent consolidation in the left lung base medially. Persistent infiltrate in the medial right lung base. Respiratory volume is expiratory. Suspected small effusions. No pneumothorax. No acute bony abnormality is seen. XR/XR chest 1V portable [id number] IMPRESSION: Supporting devices in stable position as visualized. Worsening left lung infiltrate. No real change in consolidation/atelectasis in both lung bases and suspected small bilateral effusions.
[2020-04-28] MEDS: piperacillin-tazobactam 3.375 GM in sodium chloride 0.9% (plus) 50 ML IV ×3 (07:38→23:35)
--- NOTE | 2020-04-28 07:47 | ECG_ITS ---
[facility] Test Date: 2020-04-28 Pat Name: Kari East Department: Room: ICU04 Gender: Female [employer] Coach: : 1985 Requested By: El Garcia Order Number: [id number] Erika MD: Vijay Douglass M.D. Measurements Intervals [place] Rate: 67 P: 14 FL: 154 QRS: 42 QRSD: 119 T: 194 QT: 467 QTc: 496 Interpretive Statements SINUS RHYTHM MODERATE INTRAVENTRICULAR CONDUCTION DELAY [110+ ms QRS DURATION] ST DEVIATION AND MODERATE T-WAVE ABNORMALITY, CONSIDER LATERAL ISCHEMIA [-0.1+ mV T WAVE IN I/aVL/V5/V6] ST DEVIATION AND MODERATE T-WAVE ABNORMALITY, CONSIDER INFERIOR ISCHEMIA [-0.1+ mV T WAVE IN II/aVF] Compared to ECG 04/27/2020 00:03:13 T-wave abnormality now present Possible ischemia now present Electronically Signed On 04-28-2020 20:19:32 CDT by Vijay Douglass M.D. [email or web address]
[2020-04-28 07:54] LABS: Glucose Point of Care 109 mg/dL (70-110)
[2020-04-28] MEDS: metoprolol tartrate 25 mg Tablet 12.5 MG OG-TUBE ×2 (09:00→18:17)
[2020-04-28] MEDS: clopidogrel 75 mg Tablet NG-TUBE (09:01)
[2020-04-28] MEDS: lisinopril 10 mg Tablet PO (09:01)
[2020-04-28] MEDS: BuSPIRONE 5 mg Tablet 7.5 MG PO ×2 (09:01→18:16)
[2020-04-28] MEDS: escitalopram 10 mg Tablet PO (09:01)
[2020-04-28] MEDS: atorvastatin 40 mg Tablet 80 MG NG-TUBE (09:01)
[2020-04-28] MEDS: pantoprazole 40 mg SDV IVP ×2 (09:02→21:24)
[2020-04-28] MEDS: aspirin 81 mg EC Tablet XX (09:02)
[2020-04-28 09:35] LABS: Coronavirus Lab Test PTC Negative
--- NOTE | 2020-04-28 09:59 | PC.NURSE ---
Summary of care [id number] Recd report from JENNIFER Allison. Patient was resting comfortably in bed. patient intubated requiring 100% FI02 and PEEP of 14. oxygen saturation of 94%. OG hooked up to low intermit. suction with coffee ground emesis. bilateral wrist restraints in place for patient safety. Right upper arm PICC line saline locked, right AC running Fentanyl at 100mcg/hr and Propofol at 30mcg, left AC saline locked. Patient has multiple wounds dressed and open to air (please see wound assessment for further documentation). Patient was repositioned in bed by nurses. D/T repositioning, patient oxygen saturation dropped to 87%. Patient saturation did increase back into the low 90s after approx. 20 minutes. Both legs weeping fluids requiring change in chucks under bilateral legs. EKG preformed by RT and shown to . patients mother called for update on patient. Nurse informed mother that patient was requiring more oxygen demand, urine output and current vital signs. Pending COVID results came back negative, patient taken off isolation precautions and notified. Nurse attempted to call with phone number on file, with no success. vital signs WNL. will continue to monitor patient.
[2020-04-28] MEDS: propofol 1,000 MG/100 ML INJ 25.2 MG IV ×4 (10:04→22:07)
--- NOTE | 2020-04-28 10:49 | PM.PN ---
Subjective Subjective: Interval history: Kari is sedated on the ventilator. Medications: Reviewed: Yes Vitals/I&O/Wt Last Vital Signs Temp 97.5 F L 04/28/20 10:00 Pulse 63 04/28/20 10:00 Resp 16 04/28/20 08:30 BP 139/74 04/28/20 10:00 Pulse Ox 94 04/28/20 10:00 04/27/20 04/28/20 04/28/20 22:59 06:59 14:59 Intake Total 604.417 / 1285.349 650.727 / 1936.076 148.5 / 148.5 Output Total 2825 / 3825 1750 / 5575 475 / 475 Balance -2220.583 / -2539.651 -1099.273 / -3638.924 -326.5 / -326.5 Weight last 48 hrs Weight 180.212 kg Weight 167.829 kg Physical Exam Narrative: EXAM NARRATIVE: General exam demonstrates a sedated female Endotracheal tube noted Neck is supple, obese Cardiovascular regular rate and rhythm, heart sounds distant Lungs a faint expiratory wheeze Abdomen is soft, obese, edema noted with evidence of chronic edema with induration demonstrates [place] Extremities 3+ edema, woody edema. Significant erythema lower extremities bilaterally. Cap refill less than 2 seconds great toes bilaterally Neurologic: Awakens, opens eyes with lessening sedation Urinary Catheter Management^: [place]: Cath Placed During This Visit: yes Reason for Continuing Indwelling Catheter: Accurate Measurement of Urinary Output in Critically Ill Patients Urinary Catheter Date of Insertion: 04/27/20 Urinary Catheter Time of Insertion: 22:16 Data : 04/28/20 03:00 04/28/20 03:00 Micro: Microbiology 04/27/20 10:35 Blood Culture - Preliminary Blood NEGATIVE TO DATE 04/27/20 13:15 Gram Stain - Final Sputum - Endotracheal Tube Aspirate 04/27/20 10:35 Blood Culture - Preliminary Blood SPECIMEN COLLECTED A&P Assessment and plan (1) Acute respiratory failure with hypoxia and hypercapnia: Etiology probably multifactorial. She likely has obesity hypoventilation. Heart failure may have contributed, likely diastolic and chronic. Cannot rule out COPD, pulmonary hypertension, severe sleep apnea, contributing pneumonia, or possibility of pulmonary emboli currently.. COVID testing is completed she is negative She has required pressure control ventilation, high PEEP, and increased FiO2 requirement. Pulmonary is following. FiO2 requirement is now decreasing with diuresis. Propofol, fentanyl for sedation Status: Acute (2) New onset of congestive heart failure: Continue Bumex 2 mg IV every 12 hours She appears to be diuresing properly Echocardiogram is complete and poor quality and EF appears approximately 50% Status: Acute (3) Obesity hypoventilation syndrome: Will likely need BiPAP at night when discharged from the hospital Status: Acute (4) Sepsis: Concern regarding possibility of pneumonia Concern regarding possibility of cellulitis of lower extremities although this may represent venous stasis with hyperemia. Venous duplex was negative for DVT Continue vancomycin and Zosyn Await MRSA PCR Check blood cultures Check sputum culture She is fluid overloaded. It is contraindicated to give significant IV fluids Status: Acute Qualifiers: Sepsis type: sepsis due to unspecified organism Sepsis acute organ dysfunction status: with acute organ dysfunction Severe sepsis acute organ dysfunction type: acute respiratory failure Acute respiratory failure type: with hypercapnia Severe sepsis shock status: without septic shock Qualified Code(s): A41.9 - Sepsis, unspecified organism; R65.20 - Severe sepsis without septic shock; J96.02 - Acute respiratory failure with hypercapnia (5) NSTEMI (non-ST elevated myocardial infarction): Continue statin, Plavix, aspirin, full anticoagulation Initiate beta-tali low dose. She was on this at home and I want to prevent any beta-tali withdrawal. Will need cardiology evaluation once stabilized from a respiratory standpoint Status: Acute Additional A&P Information Tobacco dependency History of hypertension. Lisinopril was initiated on admission Depression/anxiety. Continue home medications. Full code Lovenox will serve for DVT prophylaxis Attestations Medical Necessity Statement*: Needs continued hospitalization in the ICU secondary to respiratory failure requiring high FiO2 requirement Critical Care Time: 31 minutes spent in critical care at bedside reviewing ventilator settings, chest x-ray, examination of the patient, discussion with subspecialists in this patient with high risk for decompensation and . Coding Level of Care Code Acute Center Human Resources Manager for [facility] Diagnoses Acute respiratory failure with hypoxia and hypercapnia J96.01; J96.02 New onset of congestive heart failure I50.9 Obesity hypoventilation syndrome E66.2 Sepsis A41.9; R65.20; J96.02 Sepsis type: sepsis due to unspecified organism Sepsis acute organ dysfunction status: with acute organ dysfunction Severe sepsis acute organ dysfunction type: acute respiratory failure Acute respiratory failure type: with hypercapnia Severe sepsis shock status: without septic shock NSTEMI (non-ST elevated myocardial infarction) I21.4
[2020-04-28] MEDS: bumetanide 0.25 mg/mL SDV 10 mL 2 MG IV ×2 (11:48→23:34)
[2020-04-28] MEDS: enoxaparin 100 mg/mL Syringe SUBCUT ×2 (11:49→23:35)
[2020-04-28] MEDS: enoxaparin 80 mg/0.8 mL Syringe 70 MG SUBCUT ×2 (11:49→23:35)
[2020-04-28 12:29] LABS: Glucose Point of Care 97 mg/dL (70-110)
--- NOTE | 2020-04-28 15:56 | PC.RESP ---
SMOKING CESSATION INFORMATION SENT TO PATIENT.
[2020-04-28 17:14] LABS: Glucose Point of Care 83 mg/dL (70-110)
[2020-04-29] VITALS (53 sets, daily range): BP systolic 89–160; BP diastolic 51–97; PULSE 52–78; RESP 10–24; TEMP 36.4–36.6; O2SAT 89–96
[2020-04-29 01:29] LABS: ABG PH Result 7.41 (7.35-7.45); Arterial Blood Gas Hematocrit 49.9 % (37-47); Base Excess ABG 12.8 mmol/L (-2.0-2.0); Blood Gas Allen Test Pos; Blood Gas Sample Type Arterial; HCO3 ABG 41.2 mmol/L (22-26)
[2020-04-29 01:30] LABS: Blood Gas Sample Site Radial, right; Oxygen Device VENT
[2020-04-29 01:32] LABS: ABG PCO2 65.5 mmHg (35-45)
[2020-04-29] MEDS: ipratropium-albuterol 3 mL Neb INHALATION ×4 (02:16→20:14)
[2020-04-29] MEDS: propofol 1,000 MG/100 ML INJ 20 MG IV ×3 (02:24→11:48)
[2020-04-29 03:22] LABS: Glucose Point of Care 70 mg/dL (70-110)
[2020-04-29 05:03] LABS: Alanine Aminotransferase 17 U/L (0-33); Albumin Level 2.2 g/dL (3.5-5.2); Alkaline Phosphatase 57 IU/L (35-105); Anion Gap 11.4 (5-19); Aspartate Amino Transferase 22 U/L (0-32); Blood Urea Nitrogen 21 mg/dL (6-20); Calcium 8.5 mg/dL (8.5-10.5); Carbon Dioxide 33 mmol/L (22-29); Chloride 101 mmol/L (98-107); Globulin 3.7 g/dL (1.3-4.6); Glomerular Filtration Rate 94.7 mL/min (90-130); Glucose 81 mg/dL (65-115); Osmolality Calculated 290 mOsm/kg (285-295); Potassium 3.4 mmol/L (3.5-5.1); Sodium 142 mmol/L (136-145); Total Protein 5.9 g/dL (6.6-8.7)
[2020-04-29 06:13] LABS: Basophils % 0.4 %; Eosinophils # 0.3 10^3/uL (0.0-0.8); Eosinophils % 3.5 %; Hematocrit 50.2 % (37.0-47.0); Hemoglobin 14.8 g/dL (11.5-15.3); Lymphocytes # 0.8 10^3/uL (0.8-4.8); Mean Corpuscular HGB Conc 29.5 g/dL (30.0-36.0); Mean Corpuscular Hemoglobin 27.8 pg (28.0-34.0); Mean Corpuscular Volume 94.2 fL (81-99); Mean Platelet Volume 10.5 fL (7.4-10.4); Monocytes # 0.7 10^3/uL (0.2-0.9); Monocytes % 9.9 %; Neutrophils % 75.1 %; Nucleated Red Blood Cells % 0 %; Platelet Count 214 10^3/cmm (130-400); Red Blood Count 5.33 10^6/uL (4.1-5.3); Red Cell Distribution Width 17.8 % (12.1-15.1); White Blood Count 7.3 10^3/uL (4.0-10.0)
--- NOTE | 2020-04-29 07:00 | XR_ITS ---
WS: [id number] EXAM: AP CHEST: PORTABLE UPRIGHT DATE OF EXAM: 04/29/2020, 0410 hours COMPARISON: Chest x-rays from 04/27 and 04/28/2020. HISTORY: Patient is 35 years old with respiratory. Failure. Ventilator dependent. Follow-up.. FINDINGS: The cardiac silhouette is markedly enlarged but similar. The mediastinal contours are unchanged. E ndotracheal tube and enteric tube appear to be in stable positions. The pulmonary vascularity is no rmal. Left lung infiltrate in the upper lung zones is regressing slightly. Consolidation left lung b ase with small left effusion similar. Minimal infiltrate medial right lung base appears slightly impr sloan. No pneumothorax. No acute bony abnormality is seen. XR/XR chest 1V portable [id number] IMPRESSION: Stable enlarged cardiac silhouette. Slight regression in bilateral infiltrates as described. Small left effusion suspected.
--- NOTE | 2020-04-29 07:47 | PM.CONSULT ---
Providers/Reason For Consult Consulting Physican/Specialty*: Bernard Collins MD Reason for Consult*: Lower extremity ulcer Attending Physician: El Claros MD History of Present Illness History of Present Illness Chief Complaint: Leg ulcers History of present illness: Kari East is a 35 year old female morbidly obese patients with multiple medical comorbidities presented to the emergency department with respiratory distress she was started recently before 6 weeks on phentermine for potential weight management and that was discontinued after developing skin rash last week. Patient was intubated in the emergency department and was admitted to the hospitalist service for further care for her congestive heart failure and other medical comorbidities, was found on further evaluation bilateral leg ulceration particularly on the posterior aspects and thus general surgery was consulted for further evaluation of these ulcers. Venous duplex: Examination was technically very limited due to body habitus. No evidence of DVT seen in any vessel where visualized at this time taking into consideration the limitations. CONCLUSIONS No DVT bilateral lower extremities. Limited examination. Echocardiogram CONCLUSIONS 1-Normal left ventricular cavity size. Mildly decreased left ventricular systolic function. Left ventricular ejection fraction is estimated at 50 %. Please note that this is a sub- optimal image quality study therefore cannot assess wall motion and ejection fraction accurately.Grade I/IV diastolic dysfunction (abnormal relaxation filling pattern), normal to mildly elevated filling pressures. 2-Right ventricle not well visualized. Probably normal. 3-Aortic valve sclerosis without stenosis or regurgitation. 4-Thickened mitral valve. No mitral valve stenosis. Trace mitral valve regurgitation. 5-There is no pericardial effusion. 6-There are no prior echocardiogram studies to compare. Patient was seen and evaluated in the ICU Review of Systems General: Reports: ROS unobtainable due to endotracheal tube Meds/Allergies Home Medications and Allergies Home Medications Medication Instructions Recorded Confirmed Last Taken Type cholecalciferol (vitamin D3) 1,250 mcg PO Q7D 04/26/20 04/26/20 04/25/20 History escitalopram oxalate 10 mg PO DAILY 04/26/20 04/26/20 04/26/20 History hydrochlorothiazide 12.5 mg PO BID 04/26/20 04/26/20 04/26/20 History metoprolol tartrate 50 mg PO BID 04/26/20 04/26/20 04/26/20 History triamcinolone acetonide See Rx Instructions .ROUTE .COMPLEX 04/26/20 04/26/20 04/26/20 History Allergies Allergy/AdvReac Type Severity Reaction Status Date / Time ciprofloxacin [From Cipro] Allergy Unknown Unknown Verified 04/29/20 16:47 Current Medications Current Medications Generic Name Dose Route Start Last Admin Trade Name Francie PRN Reason Stop Dose Admin Albuterol/Ipratropium 3 ml 04/27/20 09:00 04/29/20 02:16 Duoneb INHALATION 3 ml Q6H.RESPIRATORY JOSE LUIS Administration Aspirin 81 mg 04/27/20 09:00 04/28/20 09:02 Aspirin Ec XX 81 mg DAILY JOSE LUIS Administration Atorvastatin Calcium 80 mg 04/27/20 09:00 04/28/20 09:01 Lipitor NG-TUBE 80 mg DAILY JOSE LUIS Administration Buspirone HCl 7.5 mg 04/27/20 18:00 04/28/20 18:16 Buspar PO 7.5 mg BID JOSE LUIS Administration Clopidogrel Bisulfate 75 mg 04/27/20 09:00 04/28/20 09:01 Plavix NG-TUBE 75 mg DAILY JOSE LUIS Administration Enoxaparin Sodium 70 mg 04/27/20 00:15 04/28/20 23:35 Lovenox SUBCUT 70 mg Q12H JOSE LUIS Administration Enoxaparin Sodium 100 mg 04/27/20 00:15 04/28/20 23:35 Lovenox SUBCUT 100 mg Q12H JOSE LUIS Administration Escitalopram Oxalate 10 mg 04/28/20 09:00 04/28/20 09:01 Lexapro PO 10 mg DAILY JOSE LUIS Administration Fentanyl 1,000 mcg/ Sodium 100 mls @ 0 mls/hr 04/26/20 21:30 04/29/20 04:36 Chloride IV 100 mcg/hr .Q0M JOSE LUIS 10 mls/hr Administration Protocol Per Protocol Piperacillin Sod/Tazobactam 50 mls @ 12.5 mls/hr 04/26/20 23:40 04/28/20 23:35 Sod 3.375 gm/ Sodium Chloride IV 12.5 mls/hr Q8H JOSE LUIS Administration Protocol As Directed Propofol 1,000 mg in 100 mls @ 0 mls/hr 04/26/20 23:40 04/29/20 06:31 Diprivan IV 19.86 mcg/kg/min .Q0M JOSE LUIS 20 mls/hr Administration Protocol Per Protocol Vancomycin HCl 1,500 mg/ 250 mls @ 250 mls/hr 04/27/20 01:00 04/29/20 01:30 Sodium Chloride IV 166 mls/hr Q8H JOSE LUIS Administration Protocol As Directed Insulin Aspart 0 unit 04/27/20 12:00 04/28/20 21:17 Novolog SUBCUT Not Given WM&BEDTIME JOSE LUIS Protocol Lisinopril 10 mg 04/27/20 09:00 04/28/20 09:01 Prinivil PO 10 mg DAILY JOSE LUIS Administration Metoprolol Tartrate 12.5 mg 04/27/20 18:00 04/28/20 18:17 Lopressor OG-TUBE 12.5 mg BID JOSE LUIS Administration Pantoprazole Sodium 40 mg 04/27/20 21:00 04/28/20 21:24 Protonix IVP 40 mg Q12H JOSE LUIS Administration PFSH Acute PFSH: Medical History Hypertension Morbid obesity Nicotine dependence Polycystic ovary Surgical History H/O adenoidectomy History of tonsillectomy Family History Father Diabetes CAD (coronary artery disease) Hypertension Family/Other Chronic kidney disease (CKD) Social History Smoking and tobacco status: heavy tobacco smoker cigarettes [ Other cigarette details: 1 pack/day ] Alcohol intake: current Alcohol intake frequency: holidays/special occasions only Substance/Drug Use: never Household members: family Vitals/I&O/Wt Last Vital Signs Temp 97.6 F 04/29/20 03:00 Pulse 52 L 04/29/20 06:00 Resp 14 04/29/20 07:43 BP 149/80 04/29/20 06:00 Pulse Ox 93 04/29/20 06:00 04/28/20 04/29/20 04/29/20 22:59 06:59 14:59 Intake Total 827.028 / 1110.203 274.217 / 1384.420 Output Total 1100 / 1775 1900 / 3675 Balance -272.972 / -664.797 -1625.783 / -2290.580 Weight last 48 hrs Weight 394 lb Weight 397 lb 4.8 oz Physical Exam Narrative: EXAM NARRATIVE: Patient is on mechanical ventilation BMI 64 Head and neck examination PERRLA no masses no cervical lymphadenopathy no jaundice Cardiac examination distant heart sounds Fair air entry bilateral and chest examination Abdomen nontender nondistended soft no organomegaly guarding or rigidity/no signs of peritonitis Morbidly obese Anterior abdominal wall chronic lymphedema Bilateral lower extremity cellulitis associated with denuded skin on the posterior aspects of both legs right is larger than the left with range in diameter of the right side about 10 x 4 x 0.1 cm depth and the left posterior leg 4 x 2 x 0.1 cm in depth. Bilateral prepatellar scabs superficial range in diameter 2 x 2 centimeter No signs of compartment syndrome clinically appreciated Urinary Catheter Management^: [place]: Cath Placed During This Visit: yes Reason for Continuing Indwelling Catheter: Accurate Measurement of Urinary Output in Critically Ill Patients Urinary Catheter Date of Insertion: 04/27/20 Urinary Catheter Time of Insertion: 22:16 Data Micro: Micro: Microbiology 04/27/20 13:15 Gram Stain - Final Sputum - Endotrac heal Tube Aspirate Sputum Culture - P reliminary 04/27/20 17:45 MRSA Culture - Fin al Nose 04/27/20 10:35 Blood Culture - Pr eliminary Blood NEGATIVE TO DIO E 04/27/20 10:35 Blood Culture - Pr eliminary Blood NEGATIVE TO DIO E A&P Assessment and plan (1) Wound, open, lower limb with complication: Debridement using dry gauze bedside was done of the superficial adherent necrotic tissues Application of Santyl daily on these lesions followed by ABDs Betadine paint on the prepatellar scabs and open to air Likely the patient would benefit from long-term wound care Prophylactic measures with frequent turning the patient in bed every 2 hours to prevent pressure injury ulcer Recommend to obtain arterial duplex studies and segmental pressures to rule out potential underlying vasculopathy of the arterial system Thank you for consulting general surgery to participate taking care Ms East Status: Acute Consult Attestations Medical Necessity Statement: Medical necessity care is expected to cross 2 midnights Time Spent in Patient Care: (>than 50% of time spent in counselling and/or direct pt care on unit). Coding Level of Care Code Acute Rn Progressive Care Unit for [facility] Fwd Diagnoses Wound, open, lower limb with complication S81.809A
[2020-04-29] MEDS: piperacillin-tazobactam 3.375 GM in sodium chloride 0.9% (plus) 50 ML IV ×3 (08:02→23:22)
[2020-04-29] MEDS: bumetanide 0.25 mg/mL SDV 10 mL 2 MG IV ×2 (08:03→15:49)
[2020-04-29] MEDS: dextrose 50% syringe 50 mL 25 ML IVP (08:18)
[2020-04-29] MEDS: BuSPIRONE 5 mg Tablet 7.5 MG PO ×2 (08:21→17:40)
[2020-04-29] MEDS: pantoprazole 40 mg SDV IVP ×2 (08:21→20:53)
[2020-04-29] MEDS: escitalopram 10 mg Tablet PO (08:22)
[2020-04-29] MEDS: clopidogrel 75 mg Tablet NG-TUBE (08:22)
[2020-04-29] MEDS: atorvastatin 40 mg Tablet 80 MG NG-TUBE (08:22)
[2020-04-29] MEDS: aspirin 81 mg EC Tablet XX (08:22)
[2020-04-29] MEDS: lisinopril 10 mg Tablet PO (08:22)
[2020-04-29] MEDS: potassium chloride oral liq 20 mEq/15 mL UDC 40 MEQ OG-TUBE (08:26)
[2020-04-29 09:02] LABS: Glucose Point of Care 118 mg/dL (70-110)
[2020-04-29 09:02] LABS: Glucose Point of Care 55 mg/dL (70-110)
[2020-04-29] MEDS: collagenase oint 30 gm 1 APPLIC TOPICAL (10:12)
--- NOTE | 2020-04-29 10:21 | PC.NUTR ---
NUTR TF RECOMMENDATIONS: Pulmocare with goal rate of 60 ml/hr providing 2160 kcal (79%), 91 g PRO (76%), and 1130 ml fluid (41%)(%NEEDS). Suggest starting TF at 30 ml/hr and increase by 10 ml Q6H as tolerated till goal rate is met. Suggest 200 ml H2O flushes Q4H to approach fluid needs or per physician.
--- NOTE | 2020-04-29 10:47 | P.PN_ITS ---
Subjective Subjective: Interval history: Kari is sedated on the vent, but will awaken open eyes and try to communicate when stimulated. I visited with her family extensively yesterday. Medications: Reviewed: Yes Vitals/I&O/Wt Last Vital Signs Temp 97.6 F 04/29/20 03:00 Pulse 68 04/29/20 09:38 Resp 10 L 04/29/20 09:33 BP 139/81 04/29/20 09:30 Pulse Ox 96 04/29/20 09:32 04/28/20 04/29/20 04/29/20 22:59 06:59 14:59 Intake Total 827.028 / 1110.203 324.217 / 1434.420 350 / 350 Output Total 1100 / 1775 1900 / 3675 325 / 325 Balance -272.972 / -664.797 -1575.783 / -2240.580 25 / 25 Weight last 48 hrs Weight 178.715 kg Weight 180.212 kg Physical Exam Narrative: EXAM NARRATIVE: General exam demonstrates a sedated female but will open eyes and follow directions when asked. Decreased FiO2 requirement is noted. Endotracheal tube noted Neck is supple, obese Cardiovascular regular rate and rhythm, heart sounds distant Lungs clear. Increased aeration Abdomen is soft, obese, edema noted with evidence of chronic edema with induration demonstrates [place] Extremities 3+ edema, woody edema. Significant erythema lower extremities bilaterally. Cap refill less than 2 seconds great toes bilaterally. Skin breakdown noted on back of calves with white eschar Neurologic: Awakens, opens eyes with lessening sedation Urinary Catheter Management^: [place]: Cath Placed During This Visit: yes Reason for Continuing Indwelling Catheter: Accurate Measurement of Urinary Output in Critically Ill Patients Urinary Catheter Date of Insertion: 04/27/20 Urinary Catheter Time of Insertion: 22:16 Data : 04/29/20 06:07 04/29/20 04:00 Micro: Microbiology 04/27/20 13:15 Gram Stain - Final Sputum - Endotracheal Tube Aspirate Sputum Culture - Preliminary 04/27/20 17:45 MRSA Culture - Final Nose 04/27/20 10:35 Blood Culture - Preliminary Blood NEGATIVE TO DATE 04/27/20 10:35 Blood Culture - Preliminary Blood NEGATIVE TO DATE A&P Assessment and plan (1) Acute respiratory failure with hypoxia and hypercapnia: Etiology probably multifactorial. She likely has obesity hypoventilation. Heart failure may have contributed, likely diastolic and chronic. Cannot rule out COPD, pulmonary hypertension, severe sleep apnea, contributing pneumonia, or possibility of pulmonary emboli currently.. COVID testing is completed she is negative She has required pressure control ventilation, high PEEP, and increased FiO2 requirement. Pulmonary is following. FiO2 requirement is now decreasing with diuresis. Propofol, fentanyl for sedation Status: Acute (2) New onset of congestive heart failure: Only 1.8 L in the last 24 hours. Will increase Bumex Overall this appears to be improving Echocardiogram is complete and poor quality and EF appears approximately 50% Consistent with acute diastolic heart failure. Status: Acute (3) Obesity hypoventilation syndrome: Will likely need BiPAP at night when discharged from the hospital Status: Acute (4) Sepsis: Concern regarding possibility of pneumonia Concern regarding possibility of cellulitis of lower extremities although this may represent venous stasis with hyperemia. Venous duplex was negative for DVT Currently on vancomycin, Zosyn MRSA PCR negative. Therefore will discontinue vancomycin Awaiting final is on sputum and blood cultures but negative to date. She is fluid overloaded. It is contraindicated to give significant IV fluids Status: Acute Qualifiers: Sepsis type: sepsis due to unspecified organism Sepsis acute organ dysfunction status: with acute organ dysfunction Severe sepsis acute organ dysfunction type: acute respiratory failure Acute respiratory failure type: with hypercapnia Severe sepsis shock status: without septic shock Qualified Code(s): A41.9 - Sepsis, unspecified organism; R65.20 - Severe sepsis without septic shock; J96.02 - Acute respiratory failure with hypercapnia (5) NSTEMI (non-ST elevated myocardial infarction): Continue statin, Plavix, aspirin, full anticoagulation Continue beta-tali low dose. She was on this at home and I want to prevent any beta-tali withdrawal. As she is clinically improving we will go ahead and consult cardiology. I expect she will be extubated in 2 days and further evaluation will be needed. T Status: Acute Additional A&P Information Tobacco dependency History of hypertension. Lisinopril was initiated on admission Depression/anxiety. Continue home medications. Full code Lovenox will serve for DVT prophylaxis Attestations Medical Necessity Statement*: Needs continued hospitalization for IV antibiotics, diuresis secondary to respiratory failure requiring ventilatory support Critical Care Time: 30 minutes spent in critical care time in this patient with respiratory failure requiring high levels of FiO2 initially with high risk of decompensation with severe heart failure. Coding Level of Care Code Acute Advertising Manager for [facility] F[facility] Diagnoses Acute respiratory failure with hypoxia and hypercapnia J96.01; J96.02 New onset of congestive heart failure I50.9 Obesity hypoventilation syndrome E66.2 Sepsis A41.9; R65.20; J96.02 Sepsis type: sepsis due to unspecified organism Sepsis acute organ dysfunction status: with acute organ dysfunction Severe sepsis acute organ dysfunction type: acute respiratory failure Acute respiratory failure type: with hypercapnia Severe sepsis shock status: without septic shock NSTEMI (non-ST elevated myocardial infarction) I21.4
[2020-04-29 11:19] LABS: Glucose Point of Care 59 mg/dL (70-110)
[2020-04-29] MEDS: dextrose 50% syringe 50 mL IVP (11:20)
[2020-04-29 12:37] LABS: Glucose Point of Care 91 mg/dL (70-110)
[2020-04-29] MEDS: enoxaparin 100 mg/mL Syringe SUBCUT (13:19)
[2020-04-29] MEDS: enoxaparin 80 mg/0.8 mL Syringe 70 MG SUBCUT (13:20)
[2020-04-29 13:49] LABS: Glucose Point of Care 80 mg/dL (70-110)
[2020-04-29 14:34] LABS: Glucose Point of Care 84 mg/dL (70-110)
[2020-04-29] MEDS: propofol 1,000 MG/100 ML INJ 25 MG IV ×3 (15:48→23:40)
[2020-04-29] MEDS: metoprolol tartrate 25 mg Tablet 12.5 MG OG-TUBE (17:41)
--- NOTE | 2020-04-29 18:34 | PM.CONSULT ---
Providers/Reason For Consult Consulting Physican/Specialty*: Cardiology Reason for Consult*: Non-ST relation CA Congestive heart failure Attending Physician: El Claros MD History of Present Illness History of Present Illness I been asked by Dr. El Claros to assist in the care of Kari East who is a 35 year old female past medical history significant for morbid obesity, polycythemia, COPD, history of respiratory failure with hypoventilation syndrome, history of cellulitis, history of obstructive sleep apnea presented with hypoxia hypercapnia leading to respiratory failure. She was intubated, X-ray chest and presentation was consistent with new onset of heart failure. She was diuresed with IV Bumex . Twelve-lead EKG was consistent with sinus rhythm and nonspecific lateral leads ST deviation along with interventricular conduction delay. Echocardiogram showed mildly reduced left ventricle function at 50%. 5th gen troponin increased to 99. Overall patient has started improving. When I saw her today she was intubated and could not speak. FiO2 has been improving and now up to 50 however PEEP remain high at 15. She has bilateral lower extremity edema with cellulitis. She has been also treated for sepsis. Review of Systems General: Reports: ROS unobtainable due to endotracheal tube and ROS unobtainable due to mental status Const: Denies: fever(s), chills, body aches, change in appetite or fatigue Eyes: Denies: blurry vision or eye discomfort ENMT: Denies: throat pain or dental pain Card: Denies: chest pain Resp: Reports: dyspnea GI: Denies: abdominal pain, nausea, vomiting or diarrhea : Denies: dysuria Musc: Denies: neck pain or back pain Skin/Breast: Reports: erythema, skin swelling and sores Neuro: Denies: headache(s) Psych: Denies: depression Victor Hugo/Lymph: Denies: easy bruising All/Imm: Denies: urticaria Meds/Allergies Home Medications and Allergies Home Medications Medication Instructions Recorded Confirmed Last Taken Type cholecalciferol (vitamin D3) 1,250 mcg PO Q7D 04/26/20 04/26/20 04/25/20 History escitalopram oxalate 10 mg PO DAILY 04/26/20 04/26/20 04/26/20 History hydrochlorothiazide 12.5 mg PO BID 08/17/20 08/17/20 08/17/20 History metoprolol tartrate 50 mg PO BID 04/26/20 04/26/20 04/26/20 History triamcinolone acetonide See Rx Instructions .ROUTE .COMPLEX 04/26/20 04/26/20 04/26/20 History Allergies Allergy/AdvReac Type Severity Reaction Status Date / Time ciprofloxacin [From Cipro] Allergy Unknown Unknown Verified 04/29/20 16:47 Current Medications Current Medications Generic Name Dose Route Start Last Admin Trade Name Freq PRN Reason Stop Dose Admin Albuterol/Ipratropium 3 ml 04/27/20 09:00 04/29/20 14:12 Duoneb INHALATION 3 ml Q6H.RESPIRATORY JOSE LUIS Administration Aspirin 81 mg 04/27/20 09:00 04/29/20 08:22 Aspirin Ec XX 81 mg DAILY JOSE LUIS Administration Atorvastatin Calcium 80 mg 04/27/20 09:00 04/29/20 08:22 Lipitor NG-TUBE 80 mg DAILY JOSE LUIS Administration Bumetanide 2 mg 04/29/20 08:00 04/29/20 15:49 Bumex IV 2 mg Q8H JOSE LUIS Administration Buspirone HCl 7.5 mg 04/27/20 18:00 04/29/20 17:40 Buspar PO 7.5 mg BID JOSE LUIS Administration Clopidogrel Bisulfate 75 mg 04/27/20 09:00 04/29/20 08:22 Plavix NG-TUBE 75 mg DAILY JOSE LUIS Administration Collagenase 1 applic 04/29/20 10:00 04/29/20 10:12 Santyl TOPICAL 1 applic DAILY JOSE LUIS Administration Dextrose 25 ml 04/27/20 08:26 04/29/20 08:18 D50w IVP 25 ml ONCE PRN Administration hypoglycemia protocol Protocol Dextrose 50 ml 04/27/20 08:26 04/29/20 11:20 D50w IVP 50 ml PRN PRN Administration hypoglycemia protocol Protocol Enoxaparin Sodium 70 mg 04/27/20 00:15 04/29/20 13:20 Lovenox SUBCUT 70 mg Q12H JOSE LUIS Administration Enoxaparin Sodium 100 mg 04/27/20 00:15 04/29/20 13:19 Lovenox SUBCUT 100 mg Q12H JOSE LUIS Administration Escitalopram Oxalate 10 mg 04/28/20 09:00 04/29/20 08:22 Lexapro PO 10 mg DAILY JOSE LUIS Administration Fentanyl 1,000 mcg/ Sodium 100 mls @ 0 mls/hr 04/26/20 21:30 04/29/20 14:05 Chloride IV 100 mcg/hr .Q0M JOSE LUIS 10 mls/hr Administration Protocol Per Protocol Piperacillin Sod/Tazobactam 50 mls @ 12.5 mls/hr 04/26/20 23:40 04/29/20 15:49 Sod 3.375 gm/ Sodium Chloride IV 12.5 mls/hr Q8H JOES LUIS Administration Protocol As Directed Propofol 1,000 mg in 100 mls @ 0 mls/hr 04/26/20 23:40 04/29/20 15:48 Diprivan IV 24.83 mcg/kg/min .Q0M JOSE LUIS 25 mls/hr Administration Protocol Per Protocol Insulin Aspart 0 unit 04/27/20 12:00 04/29/20 17:35 Novolog SUBCUT Not Given WM&BEDTIME JOSE LUIS Protocol Lisinopril 10 mg 04/27/20 09:00 04/29/20 08:22 Prinivil PO 10 mg DAILY JOSE LUIS Administration Metoprolol Tartrate 12.5 mg 04/27/20 18:00 04/29/20 17:41 Lopressor OG-TUBE 12.5 mg BID JOSE LUIS Administration Pantoprazole Sodium 40 mg 04/27/20 21:00 04/29/20 08:21 Protonix IVP 40 mg Q12H JOSE LUIS Administration PFSH Acute PFSH: Medical History Hypertension Morbid obesity Nicotine dependence Polycystic ovary Surgical History H/O adenoidectomy History of tonsillectomy Family History Father Diabetes CAD (coronary artery disease) Hypertension Family/Other Chronic kidney disease (CKD) Social History Smoking and tobacco status: heavy tobacco smoker cigarettes [ Other cigarette details: 1 pack/day ] Alcohol intake: current Alcohol intake frequency: holidays/special occasions only Substance/Drug Use: never Household members: family Vitals/I&O/Wt Last Vital Signs Temp 97.6 F 04/29/20 17:30 Pulse 68 04/29/20 18:00 Resp 12 04/29/20 18:14 BP 129/82 04/29/20 18:00 Pulse Ox 89 L 04/29/20 18:00 04/29/20 04/29/20 04/29/20 06:59 14:59 22:59 Intake Total 324.217 / 1434.420 594.833 / 594.833 693.166 / 1287.999 Output Total 1900 / 3675 1325 / 1325 1450 / 2775 Balance -1575.783 / -2240.580 -730.167 / -730.167 -756.834 / -1487.001 Weight last 48 hrs Weight 394 lb Weight 397 lb 4.8 oz Physical Exam Narrative: EXAM NARRATIVE: GENERAL: Patient is intubated but opens her eyes and follows command. NECK: No jugular vein distension. HEENT: No cyanosis. No icterus. No pallor. HEART: Regular S1 and S2. No murmur, rub or gallop. LUNGS: decreased air entry bilaterally. ABDOMEN: Soft, nontender and nondistended. Positive bowel sounds. No guarding, rebound or tenderness. CENTRAL NERVOUS SYSTEM: Grossly nonfocal. EXTREMITIES: Lower extremities with 2+ edema bilaterally. Bilateral lower extremity venous stasis and cellulitis Urinary Catheter Management^: [place]: Cath Placed During This Visit: yes Reason for Continuing Indwelling Catheter: Accurate Measurement of Urinary Output in Critically Ill Patients Urinary Catheter Date of Insertion: 04/27/20 Urinary Catheter Time of Insertion: 22:16 Data Micro: Micro: Microbiology 04/27/20 13:15 Gram Stain - Final Sputum - Endotrac heal Tube Aspirate Sputum Culture - F inal A&P Assessment and plan (1) NSTEMI (non-ST elevated myocardial infarction): Leaking of cardiac markers in the face of sepsis hypoxia most likely could be from demand ischemia however patient is high risk for ACS due to being obese smoker and hypertensive. Once euvolemic extubated she requires further assessment with either stress test or left heart cath. Problem with stress test patient may not have good echographic windows and she may not be an ideal candidate to lay flat in nuclear scanner which will lead to artifact. We will discuss the option of possible left heart cath before discharge. For now agree with anticoagulation and continuation of rest of medication including Plavix. Status: Acute (2) New onset of congestive heart failure: Patient has new onset of mixed systolic and diastolic heart failure. She may also need to be assessed for pulmonary hypertension. Once euvolemic may proceed with left and right heart cath. Continue IV diuretics as she has been diuresing adequately Status: Acute (3) Sepsis: As per medicine Status: Acute Qualifiers: Sepsis type: sepsis due to unspecified organism Sepsis acute organ dysfunction status: with acute organ dysfunction Severe sepsis acute organ dysfunction type: acute respiratory failure Acute respiratory failure type: with hypercapnia Severe sepsis shock status: without septic shock Qualified Code(s): A41.9 - Sepsis, unspecified organism; R65.20 - Severe sepsis without septic shock; J96.02 - Acute respiratory failure with hypercapnia (4) Wound, open, lower limb with complication: As per medicine and wound care Status: Acute (5) Respiratory failure with hypercapnia: As per medicine Status: Acute Qualifiers: Chronicity: acute Qualified Code(s): J96.02 - Acute respiratory failure with hypercapnia Consult Attestations Medical Necessity Statement: Patient require continuation hospitalization for above defined care. 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 [facility] Fwd Patient Type New History Comprehensive Exam Comprehensive Medical Decision Making High Complexity Diagnoses NSTEMI (non-ST elevated myocardial infarction) I21.4 New onset of congestive heart failure I50.9 Sepsis A41.9; R65.20; J96.02 Sepsis type: sepsis due to unspecified organism Sepsis acute organ dysfunction status: with acute organ dysfunction Severe sepsis acute organ dysfunction type: acute respiratory failure Acute respiratory failure type: with hypercapnia Severe sepsis shock status: without septic shock Wound, open, lower limb with complication S81.809A Respiratory failure with hypercapnia J96.02 Chronicity: acute
[2020-04-29 20:31] LABS: Glucose Point of Care 74 mg/dL (70-110)
[2020-04-30] VITALS (38 sets, daily range): BP systolic 92–136; BP diastolic 50–84; PULSE 62–93; RESP 10–18; TEMP 36.7–37.3; O2SAT 91–98
[2020-04-30] MEDS: bumetanide 0.25 mg/mL SDV 10 mL 2 MG IV ×4 (00:04→23:24)
[2020-04-30] MEDS: enoxaparin 80 mg/0.8 mL Syringe 70 MG SUBCUT ×2 (00:04→12:03)
[2020-04-30] MEDS: enoxaparin 100 mg/mL Syringe SUBCUT ×2 (00:05→12:03)
[2020-04-30 00:16] LABS: Glucose Point of Care 80 mg/dL (70-110)
[2020-04-30] MEDS: ipratropium-albuterol 3 mL Neb INHALATION ×4 (03:44→20:03)
[2020-04-30] MEDS: propofol 1,000 MG/100 ML INJ 25 MG IV ×3 (03:53→15:56)
[2020-04-30 04:10] LABS: Basophils % 0.4 %; Eosinophils # 0.3 10^3/uL (0.0-0.8); Eosinophils % 4.6 %; Hematocrit 49.8 % (37.0-47.0); Hemoglobin 15.1 g/dL (11.5-15.3); Lymphocytes # 0.8 10^3/uL (0.8-4.8); Lymphocytes % 11.1 %; Mean Corpuscular HGB Conc 30.3 g/dL (30.0-36.0); Mean Corpuscular Hemoglobin 28.4 pg (28.0-34.0); Mean Corpuscular Volume 93.6 fL (81-99); Mean Platelet Volume 10.6 fL (7.4-10.4); Monocytes # 0.6 10^3/uL (0.2-0.9); Monocytes % 8.4 %; Neutrophils # 5.21 10^3/uL (1.8-7.7); Neutrophils % 75.2 %; Nucleated Red Blood Cells % 0 %; Platelet Count 190 10^3/cmm (130-400); Red Blood Count 5.32 10^6/uL (4.1-5.3); Red Cell Distribution Width 18.2 % (12.1-15.1); White Blood Count 6.9 10^3/uL (4.0-10.0)
[2020-04-30 06:06] LABS: ABG PCO2 50.7 mmHg (35-45); ABG PH Result 7.53 (7.35-7.45); Arterial Blood Gas Hematocrit 48.3 % (37-47); Base Excess ABG 16.4 mmol/L (-2.0-2.0); Blood Gas Allen Test Pos; Blood Gas Sample Type Arterial
[2020-04-30 06:07] LABS: Blood Gas Sample Site Radial, right; Oxygen Device VENT
[2020-04-30 06:23] LABS: Alanine Aminotransferase 21 U/L (0-33); Albumin Level 2.4 g/dL (3.5-5.2); Alkaline Phosphatase 77 IU/L (35-105); Anion Gap 8.4 (5-19); Aspartate Amino Transferase 30 U/L (0-32); Blood Urea Nitrogen 20 mg/dL (6-20); Calcium 8.8 mg/dL (8.5-10.5); Chloride 99 mmol/L (98-107); Globulin 3.7 g/dL (1.3-4.6); Glomerular Filtration Rate 81.2 mL/min (90-130); Glucose 106 mg/dL (65-115); Magnesium 1.8 mg/dL (1.7-2.3); Osmolality Calculated 297 mOsm/kg (285-295); Potassium 3.4 mmol/L (3.5-5.1); Sodium 145 mmol/L (136-145); Total Bilirubin 1.3 mg/dL (0.15-1.2); Total Protein 6.1 g/dL (6.6-8.7)
[2020-04-30 06:26] LABS: Carbon Dioxide 41 mmol/L (22-29)
--- NOTE | 2020-04-30 07:00 | XR_ITS ---
WS: [id number] EXAM: AP CHEST: PORTABLE UPRIGHT DATE OF EXAM: 04/30/2020, 0420 hours COMPARISON: Chest x-rays over the last several days. HISTORY: Patient is 35 years old with respiratory failure. Follow-up infiltrates. FINDINGS: The cardiac silhouette is enlarged but similar. The mediastinal contours are similar. Endotracheal tube, enteric tube and PICC line remain in unchanged position. The pulmonary vascularity is normal . Bibasilar infiltrates, left greater than right, are unchanged. I question trace left pleural fluid . No pneumothorax. No acute bony abnormality is seen. XR/XR chest 1V portable [id number] IMPRESSION: Supporting devices in satisfactory stable position. Persistent bibasilar infilt rates left greater than right unchanged in the short-term. Definitely better th an on the exam from 2 days prior.
[2020-04-30 07:15] LABS: Glucose Point of Care 78 mg/dL (70-110)
[2020-04-30 07:26] LABS: Glucose Point of Care 91 mg/dL (70-110)
[2020-04-30] MEDS: lisinopril 10 mg Tablet PO (08:36)
[2020-04-30] MEDS: escitalopram 10 mg Tablet PO (08:36)
[2020-04-30] MEDS: atorvastatin 40 mg Tablet 80 MG NG-TUBE (08:36)
[2020-04-30] MEDS: clopidogrel 75 mg Tablet NG-TUBE (08:36)
[2020-04-30] MEDS: metoprolol tartrate 25 mg Tablet 12.5 MG OG-TUBE ×2 (08:37→17:15)
[2020-04-30] MEDS: BuSPIRONE 5 mg Tablet 7.5 MG PO ×2 (08:37→17:16)
[2020-04-30] MEDS: pantoprazole 40 mg SDV IVP ×2 (08:38→21:10)
[2020-04-30] MEDS: piperacillin-tazobactam 3.375 GM in sodium chloride 0.9% (plus) 50 ML IV ×3 (08:39→23:24)
[2020-04-30] MEDS: potassium chloride oral liq 20 mEq/15 mL UDC 40 MEQ PO (08:40)
[2020-04-30] MEDS: aspirin 81 mg Chew Tablet PO (09:18)
[2020-04-30] MEDS: collagenase oint 30 gm 1 APPLIC TOPICAL (09:22)
--- NOTE | 2020-04-30 09:25 | P.PN_ITS ---
Subjective Subjective: Interval history: Kari is sedated on the ventilator. I discussed her case with respiratory and they needed to put air in the cuff twice last night. Medications: Reviewed: Yes Vitals/I&O/Wt Last Vital Signs Temp 99.1 F 04/30/20 07:00 Pulse 78 04/30/20 07:00 Resp 10 L 04/30/20 07:37 BP 127/65 04/30/20 07:00 Pulse Ox 95 04/30/20 07:00 04/29/20 04/30/20 04/30/20 22:59 06:59 14:59 Intake Total 843.166 / 1437.999 802.249 / 2240.248 Output Total 1450 / 2775 2300 / 5075 Balance -606.834 / -1337.001 -1497.751 / -2834.752 Weight last 48 hrs Weight 176.402 kg Weight 178.715 kg Physical Exam Narrative: EXAM NARRATIVE: General exam demonstrates a sedated female. Opens eyes to verbal stimuli Endotracheal tube noted Neck is supple, obese Cardiovascular regular rate and rhythm, heart sounds distant Lungs clear. Increased aeration Abdomen is soft, obese, edema noted with evidence of chronic edema with induration demonstrates Loredo Extremities 3+ edema, woody edema. Erythema bilaterally is improving. Cap refill less than 2 seconds great toes bilaterally. Skin breakdown noted on back of calves with white eschar Urinary Catheter Management^: [place]: Cath Placed During This Visit: yes Reason for Continuing Indwelling Catheter: Accurate Measurement of Urinary Output in Critically Ill Patients Urinary Catheter Date of Insertion: 04/27/20 Urinary Catheter Time of Insertion: 22:16 Data : 04/30/20 03:46 04/30/20 05:50 Micro: Microbiology 04/27/20 13:15 Gram Stain - Final Sputum - Endotracheal Tube Aspirate Sputum Culture - Final A&P Assessment and plan (1) Acute respiratory failure with hypoxia and hypercapnia: Etiology probably multifactorial. She likely has obesity hypoventilation. Heart failure may have contributed, likely diastolic and chronic. Cannot rule out COPD, pulmonary hypertension, severe sleep apnea, contributing pneumonia, or possibility of pulmonary emboli currently.. COVID testing is completed and is negative She has required pressure control ventilation, high PEEP, and increased FiO2 requirement. Pulmonary is following. She is now down to 60% FiO2. Propofol, fentanyl for sedation I expect her to need several more days on the ventilator, and will likely need to be extubated to BiPAP when we do so. Status: Acute (2) New onset of congestive heart failure: 2800 cc diuresis in last 24 hours. Bumex was increased on April 30. Cardiology has been consulted. Compensation is slowly improving Echocardiogram is complete and poor quality and EF appears approximately 50% Consistent with acute diastolic heart failure. Status: Acute (3) Obesity hypoventilation syndrome: Will likely need BiPAP at night when discharged from the hospital Status: Acute (4) Sepsis: Concern regarding possibility of pneumonia Concern regarding possibility of cellulitis of lower extremities although this may represent venous stasis with hyperemia. Venous duplex was negative for DVT Currently on Zosyn MRSA PCR negative. Vancomycin was discontinued Sputum and blood cultures negative to date Status: Acute Qualifiers: Acute respiratory failure type: with hypercapnia Sepsis acute organ dysfunction status: with acute organ dysfunction Sepsis type: sepsis due to unspecified organism Severe sepsis acute organ dysfunction type: acute respiratory failure Severe sepsis shock status: without septic shock Qualified Code(s): A41.9 - Sepsis, unspecified organism; R65.20 - Severe sepsis without septic shock; J96.02 - Acute respiratory failure with hypercapnia (5) NSTEMI (non-ST elevated myocardial infarction): Continue statin, Plavix, aspirin, full anticoagulation Continue beta-tali low dose. She was on this at home and I want to prevent any beta-tali withdrawal. Cardiology has been consulted Status: Acute Additional A&P Information Tobacco dependency History of hypertension. Lisinopril was initiated on admission Depression/anxiety. Continue home medications. Full code Lovenox will serve for DVT prophylaxis Attestations Medical Necessity Statement*: Needs continued hospital stay in the ICU secondary to respiratory failure requiring ventilatory support Critical Care Time: 31 minutes spent in critical care time reviewing ventilator settings, potential cuff leak, multiple medical problems at bedside in this patient with high risk for decompensation and comorbidities Coding Level of Care Code Acute Special Assemblies Supervisor for Nalini Manning Diagnoses Acute respiratory failure with hypoxia and hypercapnia J96.01; J96.02 New onset of congestive heart failure I50.9 Obesity hypoventilation syndrome E66.2 Sepsis A41.9; R65.20; J96.02 Acute respiratory failure type: with hypercapnia Sepsis acute organ dysfunction status: with acute organ dysfunction Sepsis type: sepsis due to unspecified organism Severe sepsis acute organ dysfunction type: acute respiratory failure Severe sepsis shock status: without septic shock NSTEMI (non-ST elevated myocardial infarction) I21.4
[2020-04-30 11:34] LABS: Glucose Point of Care 90 mg/dL (70-110)
--- NOTE | 2020-04-30 13:34 | PC.NURSE ---
Dr. St notified of skin to LE moist with application of santyl, V.O. received to change to Polymem AG QD
--- NOTE | 2020-04-30 14:33 | PC.NURSE ---
doesnt follow commands, except will open eyes when her name is called.
--- NOTE | 2020-04-30 14:53 | PM.PN ---
Subjective Subjective: Interval history: Patient overall about the same continues to be on mechanical ventilation and critical Apparently patient started to have some soaking of her wound beds located on the posterior aspects of the legs with Santyl. Vitals/I&O/Wt Last Vital Signs Temp 98.1 F 04/30/20 14:00 Pulse 79 04/30/20 14:36 Resp 11 L 04/30/20 14:33 BP 118/58 04/30/20 14:00 Pulse Ox 94 04/30/20 14:33 04/29/20 04/30/20 04/30/20 22:59 06:59 14:59 Intake Total 843.166 / 1437.999 802.249 / 2240.248 100 / 100 Output Total 1450 / 2775 2300 / 5075 Balance -606.834 / -1337.001 -1497.751 / -2834.752 100 / 100 Weight last 48 hrs Weight 388 lb 14.4 oz Weight 394 lb Physical Exam Narrative: EXAM NARRATIVE: Patient is on mechanical ventilation BMI 64 Head and neck examination PERRLA no masses no cervical lymphadenopathy no jaundice Examination did not much change from yesterday evaluate Bilateral lower extremity cellulitis associated with denuded skin on the posterior aspects of both legs right is larger than the left with range in diameter of the right side about 10 x 4 x 0.1 cm depth and the left posterior leg 4 x 2 x 0.1 cm in depth. Bilateral prepatellar scabs superficial range in diameter 2 x 2 centimeter No signs of compartment syndrome clinically appreciated Urinary Catheter Management^: [place]: Cath Placed During This Visit: yes Reason for Continuing Indwelling Catheter: Accurate Measurement of Urinary Output in Critically Ill Patients Urinary Catheter Date of Insertion: 04/27/20 Urinary Catheter Time of Insertion: 22:16 Data : 05/01/20 06:17 05/01/20 06:17 Micro: Microbiology 04/27/20 13:15 Gram Stain - Final Sputum - Endotracheal Tube Aspirate Sputum Culture - Final A&P Assessment and plan (1) Wound, open, lower limb with complication: Application of PolyMem AG daily on these lesions followed by ABDs Betadine paint on the prepatellar scabs and open to air Likely the patient would benefit from long-term wound care Prophylactic measures with frequent turning the patient in bed every 2 hours to prevent pressure injury ulcer Thank you for consulting general surgery to participate taking care Ms East Status: Acute Attestations Medical Necessity Statement*: Medical necessity care is expected to cross 2 midnights Time Spent in Patient Care: (>than 50% of time spent in counselling and/or direct pt care on unit). Coding Level of Care Code Acute Portfolio Consultant for Nalini Manning Diagnoses Wound, open, lower limb with complication S81.809A
--- NOTE | 2020-04-30 16:20 | PM.PN ---
Subjective Subjective: Interval history: opening eyes but not following commands, abdominal wall edema; looks slightly better than before; Medications: Reviewed: Yes Vitals/I&O/Wt Last Vital Signs Temp 98.1 F 04/30/20 14:00 Pulse 79 04/30/20 14:36 Resp 10 L 04/30/20 15:28 BP 118/58 04/30/20 14:00 Pulse Ox 94 04/30/20 14:33 04/30/20 04/30/20 04/30/20 06:59 14:59 22:59 Intake Total 802.249 / 2240.248 100 / 100 241.584 / 341.584 Output Total 2300 / 5075 Balance -1497.751 / -2834.752 100 / 100 241.584 / 341.584 Weight last 48 hrs Weight 388 lb 14.4 oz Weight 394 lb Physical Exam Narrative: EXAM NARRATIVE: PHYSICAL EXAM: General: lying in bed, sedated and intubated. 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 opening eyes but not following commands SKIN: Bilateral legs erythema positive Urinary Catheter Management^: [place]: Cath Placed During This Visit: yes Reason for Continuing Indwelling Catheter: Accurate Measurement of Urinary Output in Critically Ill Patients Urinary Catheter Date of Insertion: 04/27/20 Urinary Catheter Time of Insertion: 22:16 Data : 04/30/20 03:46 04/30/20 05:50 Micro: Microbiology 04/27/20 13:15 Gram Stain - Final Sputum - Endotracheal Tube Aspirate Sputum Culture - Final A&P Assessment and plan (1) NSTEMI (non-ST elevated myocardial infarction): Status: Acute (2) Sepsis: Status: Acute Qualifiers: Sepsis type: sepsis due to unspecified organism Sepsis acute organ dysfunction status: with acute organ dysfunction Severe sepsis acute organ dysfunction type: acute respiratory failure Acute respiratory failure type: with hypercapnia Severe sepsis shock status: without septic shock Qualified Code(s): A41.9 - Sepsis, unspecified organism; R65.20 - Severe sepsis without septic shock; J96.02 - Acute respiratory failure with hypercapnia (3) Obesity hypoventilation syndrome: Status: Acute (4) Acute respiratory failure with hypoxia and hypercapnia: Status: Acute (5) New onset of congestive heart failure: Status: Acute (6) Cellulitis: Status: Acute Qualifiers: Site of cellulitis: extremity Site of cellulitis of extremity: lower extremity Laterality: right Qualified Code(s): L03.115 - Cellulitis of right lower limb (7) MARTINEZ (obstructive sleep apnea): Status: Acute (8) Morbid obesity with alveolar hypoventilation: Status: Acute 34-year-old female Ms. Kari East admitted for acute hypoxic hypercapnic respiratory failure likely secondary to obesity hypoventilation syndrome and acute heart failure secondary to ongoing NSTEMI. #Acute hypoxic hypercapnic respiratory failure likely secondary to obesity hypoventilation syndrome-possible acute CHF secondary to ongoing NSTEMI #OHS- MARTINEZ in morbidly obese patient -Latest ABG on 60% FiO2 and pressure support ventilation: 7.53/50/58/42 in am - Currently on pressure support ventilation with PIP 30 (reduced from 35), PEEP 12, rate 10 (reduced from 12), FiO2 50%- -Can further go up on PEEP up to 16 if blood pressure allows to keep Sat > 93% -Patient clinically looks significantly volume overloaded and very high BNP favor coexisting CHF exacerbation -Patient needs to be net negative to facilitate extubation: So far ~ -10 litres since admission; - On Bumex 2 mg twice daily; add Diamox 500 mg once daily x 1-2 days as pt has metabolic alkalosis compenent -Echo: mixed systolic and diastolic heart failure -Currently on Lovenox for ACS protocol and cardiology to do LHC and RHC before discharge - CTPA, if feasible to rule out PE -Continue Zosyn for? Pneumonia and bilateral lower leg cellulitis until final cultures reported -Monitor electrolytes while on diuretics Overall she will be very challenging to extubate because of significant CHF and morbid obesity. Continue to diurese well to keep her net negative for several days while monitoring electrolytes and evaluating every day with spontaneous breathing trials for possible extubation. Rest of the management as per primary ICU team Case discussed with Dr. Claros-hospitalist on the case Attestations Medical Necessity Statement*: Acute hypercapneic hypoxic respiratory failure still intubated and requires ICU Time Spent in Patient Care: 16 - 35 minutes Critical Care Time: Critical Care Time (min): 35 Coding Level of Care Code Acute Microbiology Quality Control Technician for g Fwd Diagnoses NSTEMI (non-ST elevated myocardial infarction) I21.4 Sepsis A41.9; R65.20; J96.02 Sepsis type: sepsis due to unspecified organism Sepsis acute organ dysfunction status: with acute organ dysfunction Severe sepsis acute organ dysfunction type: acute respiratory failure Acute respiratory failure type: with hypercapnia Severe sepsis shock status: without septic shock Obesity hypoventilation syndrome E66.2 Acute respiratory failure with hypoxia and hypercapnia J96.01; J96.02 New onset of congestive heart failure I50.9 Cellulitis L03.115 Site of cellulitis: extremity Site of cellulitis of extremity: lower extremity Laterality: right MARTINEZ (obstructive sleep apnea) G47.33 Morbid obesity with alveolar hypoventilation E66.2
--- NOTE | 2020-04-30 17:43 | P.PN_ITS ---
Subjective Subjective: Interval history: Patient is sedated. She has good output Medications: Reviewed: Yes Vitals/I&O/Wt Last Vital Signs Temp 98.1 F 04/30/20 14:00 Pulse 93 04/30/20 16:00 Resp 11 L 04/30/20 16:00 BP 100/50 04/30/20 16:00 Pulse Ox 91 04/30/20 16:00 04/30/20 04/30/20 04/30/20 06:59 14:59 22:59 Intake Total 802.249 / 2240.248 100 / 100 241.584 / 341.584 Output Total 2300 / 5075 75 / 75 Balance -1497.751 / -2834.752 100 / 100 166.584 / 266.584 Weight last 48 hrs Weight 388 lb 14.4 oz Weight 394 lb Physical Exam Narrative: EXAM NARRATIVE: GENERAL: Patient is intubated and sedated. NECK: No jugular vein distension. HEENT: No cyanosis. No icterus. No pallor. HEART: Regular S1 and S2. No murmur, rub or gallop. LUNGS: decreased air entry bilaterally. ABDOMEN: Soft, nontender and nondistended. Positive bowel sounds. No guarding, rebound or tenderness. CENTRAL NERVOUS SYSTEM: Grossly nonfocal. EXTREMITIES: Lower extremities with 2+ edema bilaterally. Bilateral lower extremity venous stasis and cellulitis Urinary Catheter Management^: [place]: Cath Placed During This Visit: yes Reason for Continuing Indwelling Catheter: Accurate Measurement of Urinary Output in Critically Ill Patients Urinary Catheter Date of Insertion: 04/27/20 Urinary Catheter Time of Insertion: 22:16 Data : 04/30/20 03:46 04/30/20 05:50 A&P Assessment and plan (1) NSTEMI (non-ST elevated myocardial infarction): Leaking of cardiac markers in the face of sepsis hypoxia most likely could be from demand ischemia however patient is high risk for ACS due to being obese smoker and hypertensive. Once euvolemic extubated she requires further assessment with either stress test or left heart cath. Problem with stress test patient may not have good echographic windows and she may not be an ideal candidate to lay flat in nuclear scanner which will lead to artifact. We will discuss the option of possible left heart cath before discharge. For now agree with anticoagulation and continuation of rest of medication including Plavix. On today's visit dated 04/30/2020 remained stable cardiac hernadez. Continue to diurese. No significant EKG changes. Continue current medicine as above. Status: Acute (2) New onset of congestive heart failure: Patient has new onset of mixed systolic and diastolic heart failure. She may also need to be assessed for pulmonary hypertension. Once euvolemic may proceed with left and right heart cath. Continue IV diuretics as she has been diuresing adequately Continue to diurese well patient had negative most likely more than 1.5 L as some of her outputs are not reliable. Continue current IV Lasix Status: Acute (3) Sepsis: As per medicine Status: Acute Qualifiers: Sepsis type: sepsis due to unspecified organism Sepsis acute organ dysfunction status: with acute organ dysfunction Severe sepsis acute organ dysfunction type: acute respiratory failure Acute respiratory failure type: w ith hypercapnia Severe sepsis shock status: without septic shock Qualified Code(s): A41.9 - Sepsis, unspecified organism; R65.20 - Severe sepsis without septic shock; J96.02 - Acute respiratory failure with hypercapnia (4) Wound, open, lower limb with complication: As per medicine and wound care Status: Acute (5) Respiratory failure with hypercapnia: As per medicine Status: Acute Qualifiers: Chronicity: acute Qualified Code(s): J96.02 - Acute respiratory failure with hypercapnia Attestations Medical Necessity Statement*: Patient require continuation hospitalization for above defined care Coding Level of Care Code Established Pt Acute Ophthalmic Photographer for g Fwd Patient Type Established History Expanded Problem Focused Exam Expanded Problem Focused Medical Decision Making Moderate Complexity Diagnoses NSTEMI (non-ST elevated myocardial infarction) I21.4 New onset of congestive heart failure I50.9 Sepsis A41.9; R65.20; J96.02 Sepsis type: sepsis due to unspecified organism Sepsis acute organ dysfunction status: with acute organ dysfunction Severe sepsis acute organ dysfunction type: acute respiratory failure Acute respiratory failure type: with hypercapnia Severe sepsis shock status: without septic shock Wound, open, lower limb with complication S81.809A Respiratory failure with hypercapnia J96.02 Chronicity: acute
--- NOTE | 2020-04-30 18:36 | PC.NURSE ---
Addendum entered by Brianda Guerra RN 04/30/20 22:24: At shift change on 04/30/[address] Claros gave order to JENNIFER Velazquez to hold start of Heparin drip until he makes morning rounds and reassess patient. Original Note: red tinged urine and sputum noted, Dr. Claros notified, received T.O. to start Heparin drip weight based at 0500 05/01/20
[2020-04-30 19:05] LABS: Glucose Point of Care 86 mg/dL (70-110)
[2020-04-30] MEDS: propofol 1,000 MG/100 ML INJ 20 MG IV ×2 (19:33→23:57)
[2020-04-30 21:58] LABS: Glucose Point of Care 92 mg/dL (70-110)
[2020-05-01] VITALS (39 sets, daily range): BP systolic 86–139; BP diastolic 54–77; PULSE 70–89; RESP 10–18; TEMP 36.7; O2SAT 92–98
[2020-05-01 00:55] LABS: INR 1.21 (0.8-1.2)
[2020-05-01 00:56] LABS: Fibrinogen 581 mg/dL (174-498)
[2020-05-01 00:59] LABS: D Dimer 2.65 ug/mIFEU (0-0.59)
[2020-05-01] MEDS: propofol 1,000 MG/100 ML INJ 20 MG IV ×3 (04:06→22:26)
[2020-05-01] MEDS: ipratropium-albuterol 3 mL Neb INHALATION ×4 (04:07→21:03)
[2020-05-01 04:54] LABS: ABG PH Result 7.33 (7.35-7.45); Arterial Blood Gas Hematocrit 49.3 % (37-47); Base Excess ABG 11.3 mmol/L (-2.0-2.0); Blood Gas Allen Test Pos; Blood Gas Sample Site Radial, right; Blood Gas Sample Type Arterial; HCO3 ABG 41.4 mmol/L (22-26); Oxygen Device VENT; PO2 ABG 77.1 mmHg (80.0-100.0)
[2020-05-01 06:25] LABS: Basophils % 0.5 %; Eosinophils # 0.2 10^3/uL (0.0-0.8); Eosinophils % 2.7 %; Hematocrit 51.4 % (37.0-47.0); Hemoglobin 14.9 g/dL (11.5-15.3); Lymphocytes # 0.8 10^3/uL (0.8-4.8); Lymphocytes % 10.4 %; Mean Corpuscular Hemoglobin 28.7 pg (28.0-34.0); Mean Platelet Volume 10.5 fL (7.4-10.4); Monocytes # 0.9 10^3/uL (0.2-0.9); Neutrophils % 75.1 %; Nucleated Red Blood Cells % 0 %; Platelet Count 199 10^3/cmm (130-400); Red Blood Count 5.19 10^6/uL (4.1-5.3); Red Cell Distribution Width 18.4 % (12.1-15.1); White Blood Count 7.9 10^3/uL (4.0-10.0)
[2020-05-01 06:50] LABS: Alanine Aminotransferase 29 U/L (0-33); Albumin Level 2.7 g/dL (3.5-5.2); Alkaline Phosphatase 81 IU/L (35-105); Anion Gap 7.2 (5-19); Aspartate Amino Transferase 55 U/L (0-32); Blood Urea Nitrogen 24 mg/dL (6-20); Calcium 8.8 mg/dL (8.5-10.5); Chloride 99 mmol/L (98-107); Globulin 3.8 g/dL (1.3-4.6); Glomerular Filtration Rate 62.7 mL/min (90-130); Glucose 106 mg/dL (65-115); Osmolality Calculated 297 mOsm/kg (285-295); Potassium 4.2 mmol/L (3.5-5.1); Sodium 145 mmol/L (136-145); Total Bilirubin 1.1 mg/dL (0.15-1.2); Total Protein 6.5 g/dL (6.6-8.7)
[2020-05-01 06:58] LABS: Carbon Dioxide 43 mmol/L (22-29)
--- NOTE | 2020-05-01 07:00 | XR_ITS ---
WS: [id number] EXAM: AP CHEST: PORTABLE UPRIGHT DATE OF EXAM: 05/01/2020, 0603 hours COMPARISON: Chest x-rays over the last week HISTORY: Patient is 35 years old with respiratory failure. Ventilator dependent. Follow-up. FINDINGS: The cardiac silhouette is enlarged but similar. The mediastinal contours again demonstrate endotra cheal tube, enteric tube and right-sided PICC line remain in unchanged positions. Prominence of the m ediastinum felt to be related to supine positioning. The pulmonary vascularity is congested. There appears be some degree of hazy interstitial infiltrate/edema reoccurring in the left upper chest. Ho w much of this has to do with enlarged body habitus is uncertain. Bibasilar infiltrates, left greater than right, again noted. Slightly improved on the right and unchanged on the left. Suspect a persis tent small left effusion. No pneumothorax. No acute bony abnormality is seen. XR/XR chest 1V portable [id number] IMPRESSION: Supporting devices in satisfactory position. Stable enlarged cardiac silhouette. Pulmonary vascularity has increased congestion with suggestion for some develop ing interstitial infiltrate/edema in the left upper outer chest. No real change in left base infiltrate. Slight improvement in right base infiltrate/atelectasis.
--- NOTE | 2020-05-01 07:52 | PM.PN ---
Subjective Subjective: Interval history: Concerns of blood in urine yesterday, bleeding from Lovenox shot. Lovenox was discontinued yesterday with thoughts of going to heparin drip this morning. Nurses relate no further bleeding has been noted. Patient is sedated, but will open eyes to stimuli. Medications: Reviewed: Yes Vitals/I&O/Wt Last Vital Signs Temp 98.1 F 04/30/20 19:00 Pulse 85 05/01/20 05:00 Resp 14 05/01/20 06:19 BP 119/71 05/01/20 05:00 Pulse Ox 96 05/01/20 05:00 04/30/20 05/01/20 05/01/20 22:59 06:59 14:59 Intake Total 363.584 / 463.584 171 / 634.584 Output Total 75 / 75 975 / 1050 Balance 288.584 / 388.584 -804 / -415.416 Weight last 48 hrs Weight 176.402 kg Physical Exam Narrative: EXAM NARRATIVE: General exam demonstrates a sedated female. Opens eyes to verbal stimuli. Ins and outs appear an accurate. I believe some of her out put was listed on her previous 24 hours. Overall she is 10.5 L negative since admission. Endotracheal tube noted Neck is supple, obese Cardiovascular regular rate and rhythm, heart sounds distant Lungs clear. Increased aeration Abdomen is soft, obese, edema noted with evidence of chronic edema with induration demonstrates [place] Extremities 2+ edema, woody edema. Erythema bilaterally is improving. Cap refill less than 2 seconds great toes bilaterally. Skin breakdown noted on back of calves with white eschar Urinary Catheter Management^: [place]: Cath Placed During This Visit: yes Reason for Continuing Indwelling Catheter: Accurate Measurement of Urinary Output in Critically Ill Patients Urinary Catheter Date of Insertion: 04/27/20 Urinary Catheter Time of Insertion: 22:16 Data : 05/01/20 06:17 05/01/20 06:17 A&P Assessment and plan (1) Acute respiratory failure with hypoxia and hypercapnia: Etiology probably multifactorial. She likely has obesity hypoventilation. Heart failure may have contributed, likely diastolic and chronic. Cannot rule out COPD, pulmonary hypertension, severe sleep apnea, contributing pneumonia, or possibility of pulmonary emboli currently.. COVID testing is completed and is negative She has required pressure control ventilation, high PEEP, and increased FiO2 requirement. Pulmonary is following. She is now down to 45% FiO2. She is somewhat acidotic from hypercarbia this morning so will increase her rate slightly. Propofol, fentanyl for sedation Unable to extubate currently. Status: Acute (2) New onset of congestive heart failure: I believe her runs in O's are inaccurate over the last 24 hours. Bumex was increased on April 30. Cardiology has been consulted. She appears to have diuresed significantly Compensation is slowly improving Echocardiogram is complete and poor quality and EF appears approximately 50% Consistent with acute diastolic heart failure. Status: Acute (3) Obesity hypoventilation syndrome: Will likely need BiPAP at night when discharged from the hospital Status: Acute (4) Sepsis: Concern regarding possibility of pneumonia Concern regarding possibility of cellulitis of lower extremities although this likely represent venous stasis with hyperemia. Venous duplex was negative for DVT Continue Zosyn currently. MRSA PCR negative. Vancomycin was discontinued after receiving 3 to 4 days. Erythema of legs continues to improve and again this appears to have been secondary to severe edema and bilateral venous stasis. Doubt any active cellulitis currently. Sputum and blood cultures negative to date Status: Acute Qualifiers: Sepsis type: sepsis due to unspecified organism Sepsis acute organ dysfunction status: with acute organ dysfunction Severe sepsis acute organ dysfunction type: acute respiratory failure Acute respiratory failure type: with hypercapnia Severe sepsis shock status: without septic shock Qualified Code(s): A41.9 - Sepsis, unspecified organism; R65.20 - Severe sepsis without septic shock; J96.02 - Acute respiratory failure with hypercapnia (5) NSTEMI (non-ST elevated myocardial infarction): On statin, Plavix, aspirin. Continue beta-tali low dose. She was on this at home and I want to prevent any beta-tali withdrawal. Cardiology has been consulted Had some spontaneous bleeding yesterday so Lovenox was held and we will convert to heparin drip today, to initiate without bolus. We will also discontinue her aspirin but continue Plavix to reduce risk of bleeding. Status: Acute Additional A&P Information Tobacco dependency History of hypertension. Lisinopril was initiated on admission. I am going to reduce her dose slightly secondary to slight bump in creatinine, lower blood pressures. Depression/anxiety. Continue home medications. Full code Lovenox will serve for DVT prophylaxis Protonix for GI prophylaxis Attestations Medical Necessity Statement*: Needs continued hospital stay secondary to respiratory failure requiring ventilatory support Critical Care Time: 36 minutes spent in critical care time at bedside reviewing case with nursing, examining the patient, developing a plan in this patient with multiple comorbidities with concern of heart failure, respiratory failure with high risk of decompensation. Coding Level of Care Code Acute Consulting Services Project Manager for g Fwd Diagnoses Acute respiratory failure with hypoxia and hypercapnia J96.01; J96.02 New onset of congestive heart failure I50.9 Obesity hypoventilation syndrome E66.2 Sepsis A41.9; R65.20; J96.02 Sepsis type: sepsis due to unspecified organism Sepsis acute organ dysfunction status: with acute organ dysfunction Severe sepsis acute organ dysfunction type: acute respiratory failure Acute respiratory failure type: with hypercapnia Severe sepsis shock status: without septic shock NSTEMI (non-ST elevated myocardial infarction) I21.4
[2020-05-01 08:12] LABS: Glucose Point of Care 102 mg/dL (70-110)
[2020-05-01] MEDS: bumetanide 0.25 mg/mL SDV 10 mL 2 MG IV ×2 (09:30→18:10)
[2020-05-01] MEDS: piperacillin-tazobactam 3.375 GM in sodium chloride 0.9% (plus) 50 ML IV ×2 (09:31→18:10)
[2020-05-01] MEDS: clopidogrel 75 mg Tablet NG-TUBE (09:54)
[2020-05-01] MEDS: escitalopram 10 mg Tablet PO (09:54)
[2020-05-01] MEDS: BuSPIRONE 5 mg Tablet 7.5 MG PO ×2 (09:54→18:11)
[2020-05-01] MEDS: lisinopril 5 mg Tablet 2.5 MG PO (09:54)
[2020-05-01] MEDS: metoprolol tartrate 25 mg Tablet 12.5 MG OG-TUBE ×2 (09:54→18:11)
[2020-05-01] MEDS: pantoprazole 40 mg SDV IVP ×2 (09:55→21:50)
[2020-05-01] MEDS: atorvastatin 40 mg Tablet 80 MG NG-TUBE (09:56)
[2020-05-01] MEDS: heparin drip 25,000 UNIT/500 ML PREMIX 36 UNIT IV (10:53)
[2020-05-01 11:43] LABS: Glucose Point of Care 111 mg/dL (70-110)
[2020-05-01 17:16] LABS: Partial Thromboplastin Time 52.8 SECONDS (23.9-36.7)
--- NOTE | 2020-05-01 18:55 | PM.PN ---
Subjective Subjective: Interval history: Patient is still intubated. However today she was awake and responding appropriately. She denied any chest pain prior to presentation to hospital. However she was having significant shortness of breath for several days. Medications: Reviewed: Yes Vitals/I&O/Wt Last Vital Signs Temp 98.1 F 04/30/20 19:00 Pulse 74 05/01/20 16:00 Resp 14 05/01/20 17:38 BP 114/64 05/01/20 16:00 Pulse Ox 95 05/01/20 16:00 05/01/20 05/01/20 05/01/20 06:59 14:59 22:59 Intake Total 221 / 684.584 218.917 / 218.917 Output Total 975 / 1050 Balance -754 / -365.416 218.917 / 218.917 Weight last 48 hrs Weight 387 lb 8 oz Weight 388 lb 14.4 oz Physical Exam Narrative: EXAM NARRATIVE: GENERAL: Patient is intubated but awake and responding appropriately [] NECK: No jugular vein distension. [] HEENT: No cyanosis. No icterus. No pallor. [] HEART: Regular S1 and S2. No murmur, rub or gallop. [] LUNGS: Difficult to assess because of ventilation [] ABDOMEN: Soft edematous [] CENTRAL NERVOUS SYSTEM: Grossly nonfocal. [] EXTREMITIES: Lower extremities with 2 + edema bilaterally. Skin breakdown is noted Urinary Catheter Management^: [place]: Cath Placed During This Visit: yes Reason for Continuing Indwelling Catheter: Accurate Measurement of Urinary Output in Critically Ill Patients Urinary Catheter Date of Insertion: 04/27/20 Urinary Catheter Time of Insertion: 22:16 Data : 05/01/20 06:17 05/01/20 06:17 A&P Assessment and plan (1) NSTEMI (non-ST elevated myocardial infarction): Leaking of cardiac markers in the face of sepsis/ hypoxia likely could be from demand ischemia however patient is high risk for ACS due to being obese smoker and hypertensive. Once euvolemic and extubated she requires further ischemic work-up with stress test or left heart cath. We will discuss the option of possible left heart cath before discharge. For now agree with anticoagulation and continuation of rest of medication including Plavix. Patient's FiO2 requirement has gone down significantly. She is awake, appropriately responding and in progress. On today's visit dated 04/30/2020 remained stable cardiac hernadez. Continue to diurese. No significant EKG changes. Continue current medicine as above. Status: Acute (2) New onset of congestive heart failure: Patient has new onset of mixed systolic and diastolic heart failure. She may also need to be assessed for pulmonary hypertension. Once euvolemic may proceed with left and right heart cath. Continue IV diuretics as she has been diuresing adequately Continue to diurese well patient had negative most likely more than 1.5 L as some of her outputs are not reliable. With IV Bumex Status: Acute (3) Sepsis: As per medicine Status: Acute Qualifiers: Sepsis type: sepsis due to unspecified organism Sepsis acute organ dysfunction status: with acute organ dysfunction Severe sepsis acute organ dysfunction type: acute respiratory failure Acute respiratory failure type: with hypercapnia Severe sepsis shock status: without septic shock Qualified Code(s): A41.9 - Sepsis, unspecified organism; R65.20 - Severe sepsis without septic shock; J96.02 - Acute respiratory failure with hypercapnia (4) Wound, open, lower limb with complication: As per medicine and wound care Status: Acute (5) Respiratory failure with hypercapnia: As per medicine Status: Acute Qualifiers: Chronicity: acute Qualified Code(s): J96.02 - Acute respiratory failure with hypercapnia Attestations Medical Necessity Statement*: Continued diuresis, still intubated Coding Level of Care Code Acute Data Entry Analyst for [facility] Fwd Diagnoses NSTEMI (non-ST elevated myocardial infarction) I21.4 New onset of congestive heart failure I50.9 Sepsis A41.9; R65.20; J96.02 Sepsis type: sepsis due to unspecified organism Sepsis acute organ dysfunction status: with acute organ dysfunction Severe sepsis acute organ dysfunction type: acute respiratory failure Acute respiratory failure type: with hypercapnia Severe sepsis shock status: without septic shock Wound, open, lower limb with complication S81.809A Respiratory failure with hypercapnia J96.02 Chronicity: acute
--- NOTE | 2020-05-01 19:00 | PC.NURSE ---
Report taken from Tsering Palomo RN. Patient started on Heparin drip earlier in the day and per report given Dr. Claros gave verbal order to not bolus per the protocol and at the 1630 adjustment the drip should've been adjusted to 39 mL/hr but verbal order given to adjust to 38 mL/hr. If a change is needed at the next draw which is due at 2230 will notify doctor for further orders. Patient is oozing blood from left wrist ulcer. Pressure dressing is present. Propofol is at 20 mL/hr Fentanyl at 2.5 mL/hr (25 mcg/hr) Heparin at 38 mL/hr
--- NOTE | 2020-05-01 22:30 | PC.NURSE ---
aPTT was 61.2 which requires no change per protocol. Will continue to monitor and order new aPTT at 0430
[2020-05-01 22:53] LABS: Partial Thromboplastin Time 61.2 SECONDS (23.9-36.7)
[2020-05-02] VITALS (42 sets, daily range): BP systolic 105–132; BP diastolic 55–80; PULSE 69–82; RESP 12–22; TEMP 36.5–36.9; O2SAT 90–95
--- NOTE | 2020-05-02 01:59 | PC.NURSE ---
Patient noted to have dylon hematuria and increased bleeding at left wrist wound site. Dr. Zamarripa at bedside and ordered heparin drip to be stopped at this time. Will continue to monitor.
[2020-05-02] MEDS: ipratropium-albuterol 3 mL Neb INHALATION ×4 (02:21→20:00)
[2020-05-02] MEDS: bumetanide 0.25 mg/mL SDV 10 mL 2 MG IV ×3 (02:22→18:13)
[2020-05-02] MEDS: piperacillin-tazobactam 3.375 GM in sodium chloride 0.9% (plus) 50 ML IV ×3 (02:22→18:13)
[2020-05-02] MEDS: propofol 1,000 MG/100 ML INJ 20 MG IV ×3 (02:23→11:38)
[2020-05-02 03:31] LABS: Basophils % 0.3 %; Eosinophils # 0.3 10^3/uL (0.0-0.8); Eosinophils % 2.9 %; Hematocrit 46.9 % (37.0-47.0); Lymphocytes # 0.9 10^3/uL (0.8-4.8); Lymphocytes % 10.1 %; Mean Corpuscular HGB Conc 29.9 g/dL (30.0-36.0); Mean Corpuscular Hemoglobin 28.6 pg (28.0-34.0); Mean Corpuscular Volume 95.7 fL (81-99); Mean Platelet Volume 10.8 fL (7.4-10.4); Monocytes # 0.9 10^3/uL (0.2-0.9); Monocytes % 9.9 %; Neutrophils # 6.85 10^3/uL (1.8-7.7); Neutrophils % 76.5 %; Nucleated Red Blood Cells % 0 %; Platelet Count 187 10^3/cmm (130-400); Red Cell Distribution Width 17.6 % (12.1-15.1)
[2020-05-02 03:51] LABS: Partial Thromboplastin Time 35.1 SECONDS (23.9-36.7)
[2020-05-02 04:01] LABS: Alanine Aminotransferase 27 U/L (0-33); Albumin Level 2.6 g/dL (3.5-5.2); Alkaline Phosphatase 75 IU/L (35-105); Anion Gap 7.8 (5-19); Aspartate Amino Transferase 50 U/L (0-32); Blood Urea Nitrogen 24 mg/dL (6-20); Calcium 8.7 mg/dL (8.5-10.5); Carbon Dioxide 40 mmol/L (22-29); Chloride 101 mmol/L (98-107); Globulin 3.8 g/dL (1.3-4.6); Glomerular Filtration Rate 70.8 mL/min (90-130); Glucose 118 mg/dL (65-115); Osmolality Calculated 298 mOsm/kg (285-295); Potassium 3.8 mmol/L (3.5-5.1); Sodium 145 mmol/L (136-145); Total Bilirubin 0.9 mg/dL (0.15-1.2); Total Protein 6.4 g/dL (6.6-8.7)
[2020-05-02 05:07] LABS: Arterial Blood Gas Hematocrit 45.2 % (37-47); Base Excess ABG 14.6 mmol/L (-2.0-2.0); Blood Gas Sample Site Brachial, right; Blood Gas Sample Type Arterial; HCO3 ABG 43.1 mmol/L (22-26); Oxygen Device VENT; PO2 ABG 63.7 mmHg (80.0-100.0)
[2020-05-02 05:08] LABS: ABG PCO2 69.5 mmHg (35-45)
--- NOTE | 2020-05-02 07:00 | XR_ITS ---
WS: [id number] EXAM: AP CHEST: PORTABLE UPRIGHT DATE OF EXAM: 05/02/2020, 0506 hours COMPARISON: Chest x-rays over the last week. HISTORY: Patient is 35 years old with respiratory failure. Ventilator dependent. Follow-up pulmonary infiltrat es.. FINDINGS: The cardiac silhouette is enlarged but similar The mediastinal contours are similar. Endotracheal tube ends midclavicular level. Enteric tube crosses the thoracic esophagus. The pulmonary vasculari ty is congested. Right lung infiltrate/atelectasis continues to regress. Trace pleural fluid in the right minor fissure. Left upper lobe patchy infiltrate has resolved. Infiltrate in the left lung bas e with left effusion appears slightly worse. No acute bony abnormality is seen. XR/XR chest 1V portable [id number] IMPRESSION: Supporting devices in satisfactory position. Decreasing infiltrate/atelectasis right lung base. Slight worsening opacification in the left lung base with small left effusion. How much of this has to do with positioning is uncertain.
--- NOTE | 2020-05-02 07:36 | CT_ITS ---
WS: [id number] EXAM: CT PULMONARY ANGIOGRAM DATE OF EXAMINATION: 05/02/2020, 1343 hours COMPARISON: Chest x-ray from the same date. HISTORY: 35 years old with respiratory failure. Elevated d-dimer. TECHNIQUE: Transaxial computed tomography images obtained through the chest utilizing 95 mL of Omnipaque 350 IV contrast with images acquired in the pulmonary arterial phase. Images viewed in multiple windows with reconstructions. DLP: 564.[address] scans at [facility] use at least one of these dose optimization techniques: automat ed exposure control; mA and/or kV adjustment per patient size (includes targeted exams where dose is matched to clinical indication); or iterative reconstruction. FINDINGS: The pulmonary artery is well opacified. The examination is limited by streak artifact related to body habitus. The main pulmonary artery and proximal right and left pulmonary artery branches are free of filling defect. The more peripheral vessels are limited in evaluation but no gross pulmonary embolus is identified. There are findings of bilateral dependent infiltrates most likely representing some d egree of atelectasis. Involving both lower lobes within the dependent portion of both upper lobes. En dotracheal tube ends slightly above the level of the enrique. Enteric tube crosses the thoracic esopha dany and ends in the stomach. The side-port is at the GE junction. Advancing the enteric tube slightly by about 5 cm recommended. The thyroid gland is enlarged. There is nonspecific edema in the extrathoracic soft tissues. Small le ft greater than right pleural effusions are noted. No mediastinal mass or adenopathy is demonstrated. Heart size is slightly enlarged with four-chamber enlargement. Liver attenuation is fairly normal. L iver appears enlarged. Gallstones are present in the gallbladder lumen. Spleen is normal in size. The re is a small amount of ascites within the abdomen. Etiology for this is uncertain. CT/CT angio chest PE protcl [id number] IMPRESSION: Examination limited by body habitus. No large central pulmonary embolus identif ied. Dependent infiltrates within both lobes involving both upper lobes and lower lo bes suggesting most likely atelectasis. Bilateral effusions, left greater than right. Small amount of ascites in the abdomen of uncertain etiology. Hepatomegaly. Cholelithiasis. Generalized edema in the patient suggesting third spacing of fluid. Cardiomegaly. Thyromegaly..
--- NOTE | 2020-05-02 07:42 | PC.NURSE ---
report taken from wally. propofol at 30 and fentanyl at 50. adjusted in mar per start of shift. patient tolerating well.
[2020-05-02 07:51] LABS: Glucose Point of Care 111 mg/dL (70-110)
[2020-05-02] MEDS: pantoprazole 40 mg SDV IVP ×2 (08:17→21:18)
[2020-05-02] MEDS: propofol 1,000 MG/100 ML INJ 30 MG IV (08:17)
[2020-05-02] MEDS: clopidogrel 75 mg Tablet NG-TUBE (08:20)
[2020-05-02] MEDS: lisinopril 5 mg Tablet 2.5 MG PO (08:20)
[2020-05-02] MEDS: atorvastatin 40 mg Tablet 80 MG NG-TUBE (08:21)
[2020-05-02] MEDS: BuSPIRONE 5 mg Tablet 7.5 MG PO ×2 (08:21→18:16)
[2020-05-02] MEDS: escitalopram 10 mg Tablet PO (08:22)
[2020-05-02] MEDS: metoprolol tartrate 25 mg Tablet 12.5 MG OG-TUBE ×2 (08:22→18:15)
--- NOTE | 2020-05-02 09:39 | PM.PN ---
Subjective Subjective: Interval history: Kari is sedated on the ventilator. In talking with nursing when her sedation is lessened she follows commands, and indicates needs Medications: Reviewed: Yes Vitals/I&O/Wt Last Vital Signs Temp 98.1 F 05/01/20 21:00 Pulse 74 05/02/20 08:17 Resp 12 05/02/20 09:19 BP 121/62 05/02/20 06:00 Pulse Ox 94 05/02/20 08:17 05/01/20 05/02/20 05/02/20 22:59 06:59 14:59 Intake Total 494.45 / 713.367 338.467 / 1051.834 254 / 254 Output Total 1200 / 1200 1400 / 2600 225 / 225 Balance -705.55 / -486.633 -1061.533 / -1548.166 29 / 29 Weight last 48 hrs Weight 172.478 kg Weight 175.767 kg Physical Exam Narrative: EXAM NARRATIVE: General exam demonstrates a sedated female in no distress Endotracheal tube noted Cardiovascular regular rate and rhythm, heart sounds distant Lungs clear. Increased aeration Abdomen is soft, obese, edema noted with evidence of chronic edema demonstrates [place] Extremities 2+ edema, woody edema. Erythema bilaterally significantly improved. Cap refill less than 2 seconds great toes bilaterally. Skin breakdown noted on back of calves with white eschar. PICC line noted Urinary Catheter Management^: [place]: Cath Placed During This Visit: yes Reason for Continuing Indwelling Catheter: Accurate Measurement of Urinary Output in Critically Ill Patients Urinary Catheter Date of Insertion: 04/27/20 Urinary Catheter Time of Insertion: 22:16 Data : 05/02/20 03:20 05/02/20 03:20 A&P Assessment and plan (1) Acute respiratory failure with hypoxia and hypercapnia: Etiology probably multifactorial. She likely has obesity hypoventilation. Heart failure may have contributed, likely diastolic and chronic. Cannot rule out COPD, pulmonary hypertension, severe sleep apnea, contributing pneumonia, or possibility of pulmonary emboli currently.. COVID testing is completed and is negative She has required pressure control ventilation, high PEEP, and increased FiO2 requirement. Pulmonary is following. She is currently on 50% FiO2 with acceptable blood gas. Propofol, fentanyl for sedation Unable to extubate currently. Review again tomorrow. Today we will perform a CTA pulmonary embolism protocol to see if pulmonary embolism is present Status: Acute (2) New onset of congestive heart failure: Approximately 1600 cc out the last 24 hours. Cardiology has been consulted. She appears to have diuresed significantly Compensation is slowly improving Echocardiogram is complete and poor quality and EF appears approximately 50% Consistent with acute diastolic heart failure. Status: Acute (3) Obesity hypoventilation syndrome: Will likely need BiPAP at night when discharged from the hospital Status: Acute (4) Sepsis: Concern regarding possibility of pneumonia Concern regarding possibility of cellulitis of lower extremities although this likely represent venous stasis with hyperemia. Venous duplex was negative for DVT Continue Zosyn currently. MRSA PCR negative. Vancomycin was discontinued after receiving 3 to 4 days. Erythema of legs continues to improve and again this appears to have been secondary to severe edema and bilateral venous stasis. Sputum and blood cultures negative to date Status: Acute Qualifiers: Sepsis type: sepsis due to unspecified organism Sepsis acute organ dysfunction status: with acute organ dysfunction Severe sepsis acute organ dysfunction type: acute respiratory failure Acute respiratory failure type: with hypercapnia Severe sepsis shock status: without septic shock Qualified Code(s): A41.9 - Sepsis, unspecified organism; R65.20 - Severe sepsis without septic shock; J96.02 - Acute respiratory failure with hypercapnia (5) NSTEMI (non-ST elevated myocardial infarction): On statin, Plavix, aspirin. Continue beta-tali low dose. She was on this at home and I want to prevent any beta-tali withdrawal. Cardiology has been consulted She has having some spontaneous bleeding and heparin was discontinued last night. Aspirin has been discontinued.. She is still on Plavix. Status: Acute Additional A&P Information Tobacco dependency History of hypertension. Continue low-dose lisinopril Depression/anxiety. Continue home medications. Full code Secondary to spontaneous bleeding heparin drip has been discontinued. We will add Lovenox DVT prophylaxis dosing if CTA pulmonary embolism protocol is negative. Otherwise will need full anticoagulation. Protonix for GI prophylaxis Nutrition. Tube feeding started. 50 cc an hour currently. Nutrition has other recommendations for Pulmocare at higher rate and water boluses but as we are trying to reduce intake currently with diuresis I have held off on these changes. Attestations Medical Necessity Statement*: Needs continued hospitalization secondary to respiratory failure requiring ventilatory support Critical Care Time: 33 minutes spent in critical care in this patient with multiorgan dysfunction with high likelihood of decompensation risk requiring ventilatory support. Coding Level of Care Code Acute Assistant Women'S Soccer Coach for [facility] Diagnoses Acute respiratory failure with hypoxia and hypercapnia J96.01; J96.02 New onset of congestive heart failure I50.9 Obesity hypoventilation syndrome E66.2 Sepsis A41.9; R65.20; J96.02 Sepsis type: sepsis due to unspecified organism Sepsis acute organ dysfunction status: with acute organ dysfunction Severe sepsis acute organ dysfunction type: acute respiratory failure Acute respiratory failure type: with hypercapnia Severe sepsis shock status: without septic shock NSTEMI (non-ST elevated myocardial infarction) I21.4
[2020-05-02 11:12] LABS: Glucose Point of Care 93 mg/dL (70-110)
--- NOTE | 2020-05-02 12:43 | PC.NURSE ---
moisturized lips and cleaned mouth
[2020-05-02] MEDS: iohexol 350 mg/mL 100 mL Btl IV (13:52)
[2020-05-02 15:46] LABS: Glucose Point of Care 97 mg/dL (70-110)
[2020-05-02 17:00] LABS: HCG, Serum Qual Negative (Negative)
[2020-05-02] MEDS: enoxaparin 40 mg/0.4 mL Syringe SUBCUT (18:18)
[2020-05-02 18:27] LABS: Glucose Point of Care 91 mg/dL (70-110)
[2020-05-02 19:01] LABS: Glucose Point of Care 86 mg/dL (70-110)
[2020-05-02 19:01] LABS: Glucose Point of Care 106 mg/dL (70-110)
--- NOTE | 2020-05-02 19:49 | PC.NURSE ---
Patient is orally intubated. Unable to assess speech or orientation.
--- NOTE | 2020-05-02 20:08 | PC.NURSE ---
Patient on Fentanyl gtt for ETT tolerance. Will continue to monitor.
[2020-05-02] MEDS: propofol 1,000 MG/100 ML INJ 5 MG IV (21:18)
[2020-05-02 21:54] LABS: Glucose Point of Care 106 mg/dL (70-110)
--- NOTE | 2020-05-02 22:04 | PC.NURSE ---
Patient on Fentanyl gtt for ETT tolerance. On current dose, patient is tolerating ETT et non-verbally does not appear to be in pain. Will continue to monitor.
--- NOTE | 2020-05-02 22:40 | P.PN_ITS ---
Subjective Subjective: Interval history: Patient's overall status hasnt changed much since yesterday. She remains intubated. Sedated today. She was on heparin gtt, last night bleeding was noted and was discontinued Vitals/I&O/Wt Last Vital Signs Temp 97.7 F 05/02/20 20:00 Pulse 82 05/02/20 22:00 Resp 12 05/02/20 21:56 BP 110/64 05/02/20 22:00 Pulse Ox 93 05/02/20 22:00 05/02/20 05/02/20 05/02/20 06:59 14:59 22:59 Intake Total 388.467 / 1101.834 710.75 / 710.75 554.000 / 1264.750 Output Total 1400 / 2600 725 / 725 1950 / 2675 Balance -1011.533 / -1498.166 -14.25 / -14.25 -1396.000 / -1410.250 Weight last 48 hrs Weight 380 lb 4 oz Weight 387 lb 8 oz Physical Exam Narrative: EXAM NARRATIVE: EXAM NARRATIVE: GENERAL: Patient is intubated and sedated [] NECK: No jugular vein distension. [] HEENT: No cyanosis. No icterus. No pallor. [] HEART: Regular S1 and S2. No murmur, rub or gallop. [] LUNGS: Difficult to assess because of ventilation [] ABDOMEN: Soft edematous [] CENTRAL NERVOUS SYSTEM: Grossly nonfocal. [] EXTREMITIES: Lower extremities with 2 + edema bilaterally. Skin breakdown is noted Urinary Catheter Management^: [place]: Cath Placed During This Visit: yes Reason for Continuing Indwelling Catheter: Accurate Measurement of Urinary Output in Critically Ill Patients Urinary Catheter Date of Insertion: 04/27/20 Urinary Catheter Time of Insertion: 22:16 Data : 05/02/20 03:20 05/02/20 03:20 Micro: Microbiology 04/27/20 10:35 Blood Culture - Final Blood NO GROWTH AFTER 5 DAYS 04/27/20 10:35 Blood Culture - Final Blood NO GROWTH AFTER 5 DAYS A&P Assessment and plan (1) NSTEMI (non-ST elevated myocardial infarction): Patient's heparin gtt was held last night because of spontaneous bleeds. Her troponin elevation likely secondary to demand ischemia. OK to hold heparin for now. Continue aspirin. Continue to diurese. Once patient is more stable, will plan for LHC/RHC Status: Acute (2) New onset of congestive heart failure: Patient has new onset heart failure. She may also need to be assessed for pulmonary hypertension. Once euvolemic may proceed with left and right heart c ath. Continue IV diuretics as she has been diuresing adequately Status: Acute (3) Sepsis: As per medicine Status: Acute Qualifiers: Sepsis type: sepsis due to unspecified organism Sepsis acute organ dysfunction status: with acute organ dysfunction Severe sepsis acute organ dysfunction type: acute respiratory failure Acute respiratory failure type: with hypercapnia Severe sepsis shock status: without septic shock Qualified Code(s): A41.9 - Sepsis, unspecified organism; R65.20 - Severe sepsis without septic shock; J96.02 - Acute respiratory failure with hypercapnia (4) Wound, open, lower limb with complication: As per medicine and wound care Status: Acute (5) Respiratory failure with hypercapnia: As per medicine Status: Acute Qualifiers: Chronicity: acute Qualified Code(s): J96.02 - Acute respiratory failure with hypercapnia Attestations Medical Necessity Statement*: intubated Coding Level of Care Code Acute Electrical Continuity Tester for [facility] Fwd Diagnoses NSTEMI (non-ST elevated myocardial infarction) I21.4 New onset of congestive heart failure I50.9 Sepsis A41.9; R65.20; J96.02 Sepsis type: sepsis due to unspecified organism Sepsis acute organ dysfunction status: with acute organ dysfunction Severe sepsis acute organ dysfunction type: acute respiratory failure Acute respiratory failure type: with hypercapnia Severe sepsis shock status: without septic shock Wound, open, lower limb with complication S81.809A Respiratory failure with hypercapnia J96.02 Chronicity: acute
[2020-05-03] VITALS (31 sets, daily range): BP systolic 108–140; BP diastolic 59–84; PULSE 76–87; RESP 12–20; TEMP 36.5–37.4; O2SAT 89–96
--- NOTE | 2020-05-03 00:56 | PC.NURSE ---
Patient does not display any non-verbal signs of pain on current Fentanyl gtt. Will continue to monitor.
--- NOTE | 2020-05-03 00:59 | PC.NURSE ---
Patient having increased coughing et gagging on ETT. Patient is spontaneously opening eyes. To assist with increased ETT tolerance, propofol gtt increased. Will continue to monitor.
--- NOTE | 2020-05-03 01:09 | PC.NURSE ---
Patient appears to be tolerating ETT better with increased propofol rate. Patient continues to open eyes to verbal command. Will continue to monitor.
[2020-05-03] MEDS: bumetanide 0.25 mg/mL SDV 10 mL 2 MG IV ×3 (01:47→18:09)
[2020-05-03] MEDS: piperacillin-tazobactam 3.375 GM in sodium chloride 0.9% (plus) 50 ML IV ×3 (01:47→18:24)
[2020-05-03] MEDS: ipratropium-albuterol 3 mL Neb INHALATION ×4 (02:08→20:09)
[2020-05-03 04:03] LABS: Platelet Count 152 10^3/cmm (130-400)
[2020-05-03 05:06] LABS: ABG PCO2 65.7 mmHg (35-45); ABG PH Result 7.41 (7.35-7.45); Base Excess ABG 13.9 mmol/L (-2.0-2.0); Blood Gas Allen Test Pos; Blood Gas Sample Site Radial, right; Blood Gas Sample Type Arterial; Blood Gas Tidal Volume 0.45; HCO3 ABG 41.8 mmol/L (22-26); Oxygen Device VENT; PO2 ABG 70.4 mmHg (80.0-100.0)
--- NOTE | 2020-05-03 07:36 | PC.NURSE ---
report taken from shilpa hart. Propofol at 10 and fentanyl at 25.
[2020-05-03 07:59] LABS: Glucose Point of Care 100 mg/dL (70-110)
[2020-05-03] MEDS: propofol 1,000 MG/100 ML INJ 10.1 MG IV (08:16)
[2020-05-03 09:04] LABS: Basophils % 0.5 %; Eosinophils # 0.3 10^3/uL (0.0-0.8); Eosinophils % 3.2 %; Hematocrit 49.3 % (37.0-47.0); Lymphocytes # 0.9 10^3/uL (0.8-4.8); Lymphocytes % 10.6 %; Mean Corpuscular HGB Conc 28.4 g/dL (30.0-36.0); Mean Corpuscular Hemoglobin 27.8 pg (28.0-34.0); Mean Platelet Volume 11.4 fL (7.4-10.4); Monocytes # 0.9 10^3/uL (0.2-0.9); Monocytes % 10.4 %; Neutrophils # 6.35 10^3/uL (1.8-7.7); Neutrophils % 75.1 %; Nucleated Red Blood Cells % 0 %; Positive C 1; Red Blood Count 5.03 10^6/uL (4.1-5.3); Red Cell Distribution Width 17.9 % (12.1-15.1); White Blood Count 8.5 10^3/uL (4.0-10.0)
[2020-05-03 09:06] LABS: Platelet Count 152 10^3/cmm (130-400)
[2020-05-03 09:12] LABS: Alanine Aminotransferase 23 U/L (0-33); Albumin Level 2.6 g/dL (3.5-5.2); Alkaline Phosphatase 83 IU/L (35-105); Anion Gap 10.2 (5-19); Aspartate Amino Transferase 38 U/L (0-32); Blood Urea Nitrogen 26 mg/dL (6-20); Calcium 8.6 mg/dL (8.5-10.5); Carbon Dioxide 37 mmol/L (22-29); Chloride 99 mmol/L (98-107); Globulin 4.4 g/dL (1.3-4.6); Glomerular Filtration Rate 81.2 mL/min (90-130); Glucose 115 mg/dL (65-115); Osmolality Calculated 292 mOsm/kg (285-295); Potassium 4.2 mmol/L (3.5-5.1); Sodium 142 mmol/L (136-145); Total Bilirubin 0.9 mg/dL (0.15-1.2)
[2020-05-03] MEDS: lisinopril 5 mg Tablet 2.5 MG PO (09:14)
[2020-05-03] MEDS: clopidogrel 75 mg Tablet NG-TUBE (09:15)
[2020-05-03] MEDS: BuSPIRONE 5 mg Tablet 7.5 MG PO ×2 (09:15→18:16)
[2020-05-03] MEDS: metoprolol tartrate 25 mg Tablet 12.5 MG OG-TUBE ×2 (09:16→18:17)
[2020-05-03] MEDS: escitalopram 10 mg Tablet PO (09:16)
[2020-05-03] MEDS: atorvastatin 40 mg Tablet 80 MG NG-TUBE (09:17)
[2020-05-03] MEDS: pantoprazole 40 mg SDV IVP ×2 (10:21→20:47)
--- NOTE | 2020-05-03 10:39 | PM.PN ---
Subjective Subjective: Interval history: No change remains intubated. Continues to diurese well -3.8 L Medications: Reviewed: Yes Vitals/I&O/Wt Last Vital Signs Temp 98.9 F 05/03/20 10:00 Pulse 79 05/03/20 10:00 Resp 12 05/03/20 10:00 BP 121/78 05/03/20 10:00 Pulse Ox 93 05/03/20 10:00 05/02/20 05/03/20 05/03/20 22:59 06:59 14:59 Intake Total 624.250 / 1335.000 18.333 / 1353.333 123.73 / 123.73 Output Total 1950 / 2675 2500 / 5175 1000 / 1000 Balance -1325.750 / -1340.000 -2481.667 / -3821.667 -876.27 / -876.27 Weight last 48 hrs Weight 386 lb Weight 380 lb 4 oz Physical Exam Narrative: EXAM NARRATIVE: GENERAL: Patient is intubated and sedated. NECK: No jugular vein distension. HEENT: No cyanosis. No icterus. No pallor. HEART: Regular S1 and S2. No murmur, rub or gallop. LUNGS: decreased air entry bilaterally. ABDOMEN: Soft, nontender and nondistended. Positive bowel sounds. No guarding, rebound or tenderness. CENTRAL NERVOUS SYSTEM: Grossly nonfocal. EXTREMITIES: Lower extremities with 1+ edema bilaterally. Bilateral lower extremity venous stasis and cellulitis, appears to be improved Urinary Catheter Management^: [place]: Cath Placed During This Visit: yes Reason for Continuing Indwelling Catheter: Accurate Measurement of Urinary Output in Critically Ill Patients Urinary Catheter Date of Insertion: 04/27/20 Urinary Catheter Time of Insertion: 22:16 Data : 05/03/20 03:13 05/03/20 03:13 Micro: Microbiology 04/27/20 10:35 Blood Culture - Final Blood NO GROWTH AFTER 5 DAYS 04/27/20 10:35 Blood Culture - Final Blood NO GROWTH AFTER 5 DAYS A&P Assessment and plan (1) NSTEMI (non-ST elevated myocardial infarction): Most likely demand ischemia resulted in decaf cardiac markers. Anticoagulation was on hold due to bleed. Once pulmonary status improves and extubated decide regarding left and right heart cath Status: Acute (2) New onset of congestive heart failure: Continues to diurese well. Repeat x-ray chest. Continue current regimen Status: Acute (3) Sepsis: As per medicine Status: Acute Qualifiers: Acute respiratory failure type: with hypercapnia Sepsis acute organ dysfunction status: with acute organ dysfunction Sepsis type: sepsis due to unspecified organism Severe sepsis acute organ dysfunction type: acute respiratory failure Severe sepsis shock status: without septic shock Qualified Code(s): A41.9 - Sepsis, unspecified organism; R65.20 - Severe sepsis without septic shock; J96.02 - Acute respiratory failure with hypercapnia (4) Wound, open, lower limb with complication: Continue as per medicine Status: Acute (5) Respiratory failure with hypercapnia: As per medicine Status: Acute Qualifiers: Chronicity: acute Qualified Code(s): J96.02 - Acute respiratory failure with hypercapnia Attestations Medical Necessity Statement*: Patient require continuation hospitalization for above defined care Coding Level of Care Code Acute Director Housekeeping for [facility] Diagnoses NSTEMI (non-ST elevated myocardial infarction) I21.4 New onset of congestive heart failure I50.9 Sepsis A41.9; R65.20; J96.02 Acute respiratory failure type: with hypercapnia Sepsis acute organ dysfunction status: with acute organ dysfunction Sepsis type: sepsis due to unspecified organism Severe sepsis acute organ dysfunction type: acute respiratory failure Severe sepsis shock status: without septic shock Wound, open, lower limb with complication S81.809A Respiratory failure with hypercapnia J96.02 Chronicity: acute
--- NOTE | 2020-05-03 10:40 | PC.NURSE ---
Turn patient to right side and provided quick cleansing to backside. Patient does not tolerate being turned while being on a ventilator. O2 saturation drops and pt becomes anxious. Turned patient back and O2 saturation improves within 10 minutes.
--- NOTE | 2020-05-03 10:43 | PM.PN ---
Subjective Subjective: Interval history: Wakes up to loud voice. Nods answers to questions. When asked about pain notes pain in chest which gets worse with palpation. Vitals/I&O/Wt Last Vital Signs Temp 98.9 F 05/03/20 10:00 Pulse 79 05/03/20 10:00 Resp 12 05/03/20 10:00 BP 121/78 05/03/20 10:00 Pulse Ox 93 05/03/20 10:00 05/02/20 05/03/20 05/03/20 22:59 06:59 14:59 Intake Total 624.250 / 1335.000 18.333 / 1353.333 123.73 / 123.73 Output Total 1950 / 2675 2500 / 5175 1000 / 1000 Balance -1325.750 / -1340.000 -2481.667 / -3821.667 -876.27 / -876.27 Weight last 48 hrs Weight 175.087 kg Weight 172.478 kg Physical Exam Const: COMMON NORMALS: no acute distress GENERAL APPEARANCE: lethargic (with sedation, but wakes up to nod answers to questions) NUTRITIONAL APPEARANCE: obese ORIENTATION/CONSCIOUSNESS: Yes lethargic (with sedation, but wakes up to nod answers to questions) HENMT: COMMON NORMALS: oropharynx normal Neck/C-Spine: OTHER: Thick neck, unable to assess for JVD Resp: COMMON NORMALS: normal respiratory effort OTHER: Difficult to examine due to body habitus, however, does appear to have decent air entry, I do not detect adventitious sounds today. Cardio: COMMON NORMALS: regular rhythm, S1 normal heart sound present, S2 normal heart sound present and No murmurs present (Cardio) RHYTHM: regular rhythm HEART SOUNDS: S1 normal heart sound present and S2 normal heart sound present GI: COMMON NORMALS: Normal to inspection, nondistended, normoactive bowel sounds present, Soft to palpation and non-tender PALPATION: Yes Soft to palpation OTHER: Edema of abdominal wall below the umbilicus with skin wrinkling. Extremity: COMMON NORMALS: no joint enlargement GENERAL: Yes edema (3+ peripheral upper and lower edema) Neuro: COMMON NORMALS: moves all extremities SENSORIUM/ORIENTATION: Yes lethargic (with sedation, but wakes up to nod answers to questions) Skin: OTHER: Bilateral LE cellulitis. Few areas of superficial sloughing. Urinary Catheter Management^: [place]: Cath Placed During This Visit: yes Reason for Continuing Indwelling Catheter: Accurate Measurement of Urinary Output in Critically Ill Patients Urinary Catheter Date of Insertion: 04/27/20 Urinary Catheter Time of Insertion: 22:16 Data : 05/03/20 03:13 05/03/20 03:13 Micro: Microbiology 04/27/20 10:35 Blood Culture - Final Blood NO GROWTH AFTER 5 DAYS 04/27/20 10:35 Blood Culture - Final Blood NO GROWTH AFTER 5 DAYS A&P Assessment and plan (1) Acute respiratory failure with hypoxia and hypercapnia: Multifactorial. Acute diastolic CHF exacerbation. Overall her volume status, oxygenation appear to be improving. She likely has obesity hypoventilation. Cannot rule out COPD, pulmonary hypertension, severe sleep apnea, possible contributing pneumonia. No pulmonary emboli on CTA. COVID testing negative Daily weaning trials. Appreciate pulmonology follow up. Continue diuresis. Propofol, fentanyl for sedation Discussed w channel specialist. Status: Acute (2) New onset of congestive heart failure: -16L since admit if accurate although weight appears unchanged at 175 kg. Continue IV diuresis. Echocardiogram is complete and poor quality and EF appears approximately 50% Consistent with acute diastolic heart failure. Discussed with woodworker helper. Status: Acute (3) Obesity hypoventilation syndrome: Will likely need BiPAP at night when discharged from the hospital Status: Acute (4) Sepsis: Sepsis appear resolved. Concern for underlying infections as below. Concern regarding possibility of pneumonia. For now continues on Zosyn. Concern regarding possibility of cellulitis of lower extremities although this likely represent venous stasis with hyperemia. Venous duplex was negative for DVT Debridement if needed once she is more stable. Continue Zosyn currently for possible PNA, cellulitis. MRSA PCR negative. Erythema of legs continued to improve and again this appears to have been secondary to severe edema and bilateral venous stasis. Still present. Mild erythema unchanged on lower abdomen. Few small areas of sloughing of supericial dermis. Sputum and blood cultures negative. Status: Acute Qualifiers: Acute respiratory failure type: with hypercapnia Sepsis acute organ dysfunction status: with acute organ dysfunction Sepsis type: sepsis due to unspecified organism Severe sepsis acute organ dysfunction type: acute respiratory failure Severe sepsis shock status: without septic shock Qualified Code(s): A41.9 - Sepsis, unspecified organism; R65.20 - Severe sepsis without septic shock; J96.02 - Acute respiratory failure with hypercapnia (5) NSTEMI (non-ST elevated myocardial infarction): On statin, Plavix. ASA had to be DC'd. Continue beta-tali low dose. She was on this at home and I want to prevent any beta-tali withdrawal. Cardiology input appreciated. She has having some spontaneous bleeding and heparin was discontinued last night. Aspirin has been discontinued. Status: Acute Additional A&P Information Tobacco dependency History of hypertension. Continue low-dose lisinopril Depression/anxiety. Continue home medications. Full code Secondary to spontaneous bleeding heparin drip has been discontinued. Lovenox DVT prophylaxis dosing. Protonix for GI prophylaxis Nutrition. Tube feeding. Nutrition has other recommendations for Pulmocare at higher rate and water boluses but as we are trying to reduce intake currently with diuresis I have held off on these changes. Attestations Medical Necessity Statement*: Continue admission for assessment and management of respiratory failure, acute CHF in the setting of possible NSTEMI, obesity hypoventilation, other chronic comorbidities. Coding Level of Care Code Acute Chute Operator for [facility] Fwd Exam Comprehensive Diagnoses Acute respiratory failure with hypoxia and hypercapnia J96.01; J96.02 New onset of congestive heart failure I50.9 Obesity hypoventilation syndrome E66.2 Sepsis A41.9; R65.20; J96.02 Acute respiratory failure type: with hypercapnia Sepsis acute organ dysfunction status: with acute organ dysfunction Sepsis type: sepsis due to unspecified organism Severe sepsis acute organ dysfunction type: acute respiratory failure Severe sepsis shock status: without septic shock NSTEMI (non-ST elevated myocardial infarction) I21.4
--- NOTE | 2020-05-03 10:56 | ECG_ITS ---
[facility] Test Date: 2020-05-03 Pat Name: Kari East Department: Room: ICU04 Gender: Female Avionic Technician: : 1985 Requested By: Alfredo Pena Order Number: [id number] Erika MD: Abhishek Garcia M.D. Measurements Intervals [place] Rate: 78 P: -2 NM: 181 QRS: 49 QRSD: 130 T: 197 QT: 415 QTc: 473 Interpretive Statements SINUS RHYTHM MODERATE INTRAVENTRICULAR CONDUCTION DELAY [105+ ms QRS DURATION, 80+ ms Q/S IN V1/V2, NO Q AND 60+ ms R IN I/aVL/V5/V6] NONSPECIFIC ST & T-WAVE ABNORMALITY Compared to ECG 04/28/2020 07:48:59 T-wave abnormality still present Electronically Signed On 05-03-2020 12:01:46 CDT by Abhishek Garcia M.D. [id number]
[2020-05-03 12:00] LABS: Glucose Point of Care 127 mg/dL (70-110)
--- NOTE | 2020-05-03 13:17 | P.PN_ITS ---
Subjective Subjective: Interval history: No change remains intubated. Continues to diurese well -3.8 L Medications: Reviewed: Yes Vitals/I&O/Wt Last Vital Signs Temp 99.1 F 05/03/20 12:00 Pulse 78 05/03/20 12:00 Resp 12 05/03/20 12:00 BP 118/74 05/03/20 12:00 Pulse Ox 93 05/03/20 10:00 05/02/20 05/03/20 05/03/20 22:59 06:59 14:59 Intake Total 624.250 / 1335.000 18.333 / 1353.333 243.73 / 243.73 Output Total 1950 / 2675 2500 / 5175 1550 / 1550 Balance -1325.750 / -1340.000 -2481.667 / -3821.667 -1306.27 / -1306.27 Weight last 48 hrs Weight 386 lb Weight 380 lb 4 oz Physical Exam Narrative: EXAM NARRATIVE: PHYSICAL EXAM: General: lying in bed, sedated and intubated. HEENT:NCAT, PERRLA, EOMI Neck: Supple Lungs: Distant breath sounds, mild expiratory wheeze Heart: s1/s2, RRR Abd: Obese, pitting intact abdominal wall slightly improved, NT, reduced BS Extremities: Bilateral lower extremity edema, still redness present on bilateral legs LIBRARY MEDIA ASSISTANT: sedated and limited LIBRARY MEDIA ASSISTANT exam possible. opening eyes but not following commands SKIN: Bilateral legs erythema positive Urinary Catheter Management^: [place]: Cath Placed During This Visit: yes Reason for Continuing Indwelling Catheter: Accurate Measurement of Urinary Output in Critically Ill Patients Urinary Catheter Date of Insertion: 04/27/20 Urinary Catheter Time of Insertion: 22:16 Data : 05/03/20 03:13 05/03/20 03:13 Micro: Microbiology 04/27/20 10:35 Blood Culture - Final Blood NO GROWTH AFTER 5 DAYS 04/27/20 10:35 Blood Culture - Final Blood NO GROWTH AFTER 5 DAYS A&P Assessment and plan (1) NSTEMI (non-ST elevated myocardial infarction): Status: Acute (2) Sepsis: Status: Acute Qualifiers: Sepsis type: sepsis due to unspecified organism Sepsis acute organ dysfunction status: with acute organ dysfunction Severe sepsis acute organ dysfunction type: acute respiratory failure Acute respiratory failure type: with hypercapnia Severe sepsis shock status: without septic shock Qualified Code(s): A41.9 - Sepsis, unspecified organism; R65.20 - Severe sepsis without septic shock; J96.02 - Acute respiratory failure with hypercapnia (3) Obesity hypoventilation syndrome: Status: Acute (4) Acute respiratory failure with hypoxia and hypercapnia: Status: Acute (5) New onset of congestive heart failure: Status: Acute (6) Cellulitis: Status: Acute Qualifiers: Site of cellulitis: extremity Site of cellulitis of extremity: lower extremity Laterality: right Qualified Code(s): L03.115 - Cellulitis of right lower limb (7) MARTINEZ (obstructive sleep apnea): Status: Acute (8) Morbid obesity with alveolar hypoventilation: Status: Acute 34-year-old female Ms. Kari East admitted for acute hypoxic hypercapnic respiratory failure likely secondary to obesity hypoventilation syndrome and acute heart failure secondary to ongoing NSTEMI. #Acute hypoxic hypercapnic respiratory failure likely secondary to obesity hypoventilation syndrome-possible acute CHF secondary to ongoing NSTEMI #OHS- MARTINEZ in morbidly obese patient -Latest ABG on 60% FiO2 and pressure support ventilation: 7.53/50/58/42 in am - Currently on pressure support ventilation with PIP 30 (reduced from 35), PEEP 12, rate 10 (reduced from 12), FiO2 50%- -Can further go up on PEEP up to 16 if blood pressure allows to keep Sat > 93% -Patient clinically looks significantly volume overloaded and very high BNP favor coexisting CHF exacerbation -Patient needs to be net negative to facilitate extubation: So far ~ -10 litres since admission; - On Bumex 2 mg twice daily; add Diamox 500 mg once daily x 1-2 days as pt has metabolic alkalosis compenent -Echo: mixed systolic and diastolic heart failure -Currently on Lovenox for ACS protocol and cardiology to do LHC and RHC before discharge - CTPA, if feasible to rule out PE -Continue Zosyn for? Pneumonia and bilateral lower leg cellulitis until final cultures reported -Monitor electrolytes while on diuretics Overall she will be very challenging to extubate because of significant CHF and morbid obesity. Continue to diurese well to keep her net negative for several days while monitoring electrolytes and evaluating every day with spontaneous breathing trials for possible extubation. Rest of the management as per primary ICU team Case discussed with Dr. Claros-hospitalist on the case Coding Level of Care Code Acute Sprayer Operator for [facility] Diagnoses NSTEMI (non-ST elevated myocardial infarction) I21.4 Sepsis A41.9; R65.20; J96.02 Sepsis type: sepsis due to unspecified organism Sepsis acute organ dysfunction status: with acute organ dysfunction Severe sepsis acute organ dysfunction type: acute respiratory failure Acute respiratory failure type: with hypercapnia Severe sepsis shock status: without septic shock Obesity hypoventilation syndrome E66.2 Acute respiratory failure with hypoxia and hypercapnia J96.01; J96.02 New onset of congestive heart failure I50.9 Cellulitis L03.115 Site of cellulitis: extremity Site of cellulitis of extremity: lower extremity Laterality: right MARTINEZ (obstructive sleep apnea) G47.33 Morbid obesity with alveolar hypoventilation E66.2
--- NOTE | 2020-05-03 13:46 | PC.NURSE ---
Addendum entered by Tomas Taylor RN 05/03/20 15:31: Correction - This note was referencing the patient's left lower leg. Original Note: Dressing to right lower leg was saturated in the area local to an ulcer due to slow ooze of blood since the dressing change at 0400. Changed dressing on right lower leg. Used 1 telfa, 1 ABD, and 1 roll of Kerlix. Applied Santyl to open sores per Dr Danika neil.
--- NOTE | 2020-05-03 14:13 | PC.NURSE ---
redressed patient wounds on L lower leg. Small area soiled with old blood. followed dr Precious neil. Other dressings intact. will continue to monitor
--- NOTE | 2020-05-03 16:26 | PC.NURSE ---
Reduced propofol to 5mcg/kg/min in anticipation of family visitation. Patient was able to motion some needs such as oral swabs for moisture and answer questions by shaking her head yes and no. Patient is not fighting against the vent or appearing anxious. She is tolerating the sedation reduction well.
--- NOTE | 2020-05-03 16:33 | PC.NURSE ---
Both dressings to the patients upper left arm have become loose. I have redressed the upper arm using 1 roll of kyrlex, and 2 telfa dressings.
--- NOTE | 2020-05-03 16:39 | PC.NURSE ---
repositioned patient to her right side. Placed pillows, and changed linens.
--- NOTE | 2020-05-03 16:43 | PC.NURSE ---
per patient request, I performed oral care. Moisturizing swabs and suctioned excess.
[2020-05-03 18:21] LABS: Glucose Point of Care 126 mg/dL (70-110)
[2020-05-03] MEDS: enoxaparin 40 mg/0.4 mL Syringe SUBCUT (18:31)
[2020-05-03] MEDS: propofol 1,000 MG/100 ML INJ 5 MG IV (18:36)
--- NOTE | 2020-05-03 19:00 | P.PN_ITS ---
Subjective Subjective: Interval history: Patient following commands. Still sedated fentanyl 25 MCG and propofol 10 able to improve to 70 on 12 PEEP and 50% FiO2 still requiring high pressure support 15 and PEEP of 12. Diuresing well. Medications: Reviewed: Yes Vitals/I&O/Wt Last Vital Signs Temp 99.3 F 05/03/20 18:00 Pulse 83 05/03/20 18:00 Resp 17 05/03/20 18:00 BP 122/68 05/03/20 18:00 Pulse Ox 91 05/03/20 18:00 05/03/20 05/03/20 05/03/20 06:59 14:59 22:59 Intake Total 18.333 / 1353.333 243.73 / 243.73 889.356 / 1133.086 Output Total 2500 / 5175 1900 / 1900 550 / 2450 Balance -2481.667 / -3821.667 -1656.27 / -1656.27 339.356 / -1316.914 Weight last 48 hrs Weight 386 lb Weight 380 lb 4 oz Physical Exam Narrative: EXAM NARRATIVE: General: lying in bed, sedated and intubated. HEENT:NCAT, PERRLA, EOMI Neck: Supple Lungs: Distant breath sounds, mild expiratory wheeze Heart: s1/s2, RRR Abd: Obese, pitting edema on abdominal wall improving, NT, reduced BS Extremities: Bilateral lower extremity edema, still redness present on bilateral legs but improving MANAGER INSTALLATION: sedated and limited MANAGER INSTALLATION exam possible. opening eyes and following commands SKIN: Bilateral legs erythema positive Urinary Catheter Management^: [place]: Cath Placed During This Visit: yes Reason for Continuing Indwelling Catheter: Accurate Measurement of Urinary Output in Critically Ill Patients Urinary Catheter Date of Insertion: 04/27/20 Urinary Catheter Time of Insertion: 22:16 Data : 05/03/20 03:13 05/03/20 03:13 A&P Assessment and plan (1) NSTEMI (non-ST elevated myocardial infarction): Status: Acute (2) Sepsis: Status: Acute Qualifiers: Sepsis type: sepsis due to unspecified organism Sepsis acute organ dysfunction status: with acute organ dysfunction Severe sepsis acute organ dysfunction type: acute respiratory failure Acute respiratory failure type: with hypercapnia Severe sepsis shock status: without septic shock Qualified Code(s): A41.9 - Sepsis, unspecified organism; R65.20 - Severe sepsis without septic shock; J96.02 - Acute respiratory failure with hypercapnia (3) Obesity hypoventilation syndrome: Status: Acute (4) Acute respiratory failure with hypoxia and hypercapnia: Status: Acute (5) New onset of congestive heart failure: Status: Acute (6) Cellulitis: Status: Acute Qualifiers: Site of cellulitis: extremity Site of cellulitis of extremity: lower extremity Laterality: right Qualified Code(s): L03.115 - Cellulitis of right lower limb (7) MARTINEZ (obstructive sleep apnea): Status: Acute (8) Morbid obesity with alveolar hypoventilation: Status: Acute 34-year-old female Ms. Kari East admitted for acute hypoxic hypercapnic respiratory failure likely secondary to obesity hypoventilation syndrome and acute heart failure secondary to ongoing NSTEMI. #Acute hypoxic hypercapnic respiratory failure likely secondary to obesity hypoventilation syndrome-possible acute CHF secondary to ongoing NSTEMI #OHS- MARTINEZ in morbidly obese patient -Latest ABG on 50% FiO2/12 PEEP/15 pressure support and pressure support ventilation: 7.4 /70/41 -We will try to come down on PEEP and pressure support and see if patient tolerates to maintain oxygenation and saturation and will try spontaneous breathing trials -Patient clinically still looks significantly volume overloaded --17 L since admission but still needs more diuresis - On Bumex 2 mg every 8 daily; monitor input output and daily weight -Echo: mixed systolic and diastolic heart failure -Currently on Lovenox prophylactic dose and cardiology to do LHC and RHC before discharge - CTPA, negative -Continue Zosyn for? Pneumonia and bilateral lower leg cellulitis -Monitor electrolytes and supplement accordingly while on diuretics Overall she will be very challenging to extubate because of significant CHF and morbid obesity. Continue to diurese well to keep her net negative for several days while monitoring electrolytes and evaluating every day with spontaneous breathing trials for possible extubation. If unable to extubate by 05/07 would proceed with tracheostomy Rest of the management as per primary ICU team Case discussed with Dr. 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 [employer] Patient Type Established History Expanded Problem Focused Exam Detailed Diagnoses NSTEMI (non-ST elevated myocardial infarction) I21.4 Sepsis A41.9; R65.20; J96.02 Sepsis type: sepsis due to unspecified organism Sepsis acute organ dysfunction status: with acute organ dysfunction Severe sepsis acute organ dysfunction type: acute respiratory failure Acute respiratory failure type: with hypercapnia Severe sepsis shock status: without septic shock Obesity hypoventilation syndrome E66.2 Acute respiratory failure with hypoxia and hypercapnia J96.01; J96.02 New onset of congestive heart failure I50.9 Cellulitis L03.115 Site of cellulitis: extremity Site of cellulitis of extremity: lower extremity Laterality: right MARTINEZ (obstructive sleep apnea) G47.33 Morbid obesity with alveolar hypoventilation E66.2 Time Spent (min) 33
[2020-05-03 20:37] LABS: Glucose Point of Care 109 mg/dL (70-110)
[2020-05-04] VITALS (34 sets, daily range): BP systolic 105–128; BP diastolic 54–76; PULSE 81–97; RESP 12–20; TEMP 37.2–37.9; O2SAT 87–94
[2020-05-04] MEDS: piperacillin-tazobactam 3.375 GM in sodium chloride 0.9% (plus) 50 ML IV ×3 (02:09→17:38)
[2020-05-04] MEDS: bumetanide 0.25 mg/mL SDV 10 mL 2 MG IV ×3 (02:09→17:42)
[2020-05-04] MEDS: propofol 1,000 MG/100 ML INJ 40.3 MG IV ×3 (02:19→08:26)
[2020-05-04] MEDS: ipratropium-albuterol 3 mL Neb INHALATION ×4 (03:15→20:17)
[2020-05-04 04:16] LABS: Arterial Blood Gas Hematocrit 42.3 % (37-47); Base Excess ABG 13.8 mmol/L (-2.0-2.0); Blood Gas Allen Test Pos; Blood Gas Operator Identificat JB; Blood Gas Sample Site Radial, right; Blood Gas Sample Type Arterial; Blood Gas Tidal Volume 0.45; HCO3 ABG 41.9 mmol/L (22-26); Oxygen Device VENT; PO2 ABG 56.9 mmHg (80.0-100.0)
[2020-05-04 04:17] LABS: ABG PCO2 67.7 mmHg (35-45)
[2020-05-04 04:41] LABS: Basophils % 0.4 %; Eosinophils # 0.3 10^3/uL (0.0-0.8); Eosinophils % 3.9 %; Hematocrit 45.3 % (37.0-47.0); Hemoglobin 13.4 g/dL (11.5-15.3); Lymphocytes # 0.8 10^3/uL (0.8-4.8); Lymphocytes % 11.2 %; Mean Corpuscular HGB Conc 29.6 g/dL (30.0-36.0); Mean Corpuscular Hemoglobin 28.4 pg (28.0-34.0); Mean Platelet Volume 10.7 fL (7.4-10.4); Monocytes # 0.8 10^3/uL (0.2-0.9); Monocytes % 10.9 %; Neutrophils # 5.29 10^3/uL (1.8-7.7); Neutrophils % 73.2 %; Nucleated Red Blood Cells % 0 %; Platelet Count 168 10^3/cmm (130-400); Red Blood Count 4.72 10^6/uL (4.1-5.3); Red Cell Distribution Width 17.5 % (12.1-15.1); White Blood Count 7.2 10^3/uL (4.0-10.0)
[2020-05-04 05:14] LABS: Alanine Aminotransferase 21 U/L (0-33); Albumin Level 2.9 g/dL (3.5-5.2); Alkaline Phosphatase 92 IU/L (35-105); Anion Gap 7.7 (5-19); Aspartate Amino Transferase 29 U/L (0-32); Blood Urea Nitrogen 26 mg/dL (6-20); Calcium 8.8 mg/dL (8.5-10.5); Carbon Dioxide 40 mmol/L (22-29); Chloride 99 mmol/L (98-107); Globulin 4.1 g/dL (1.3-4.6); Glomerular Filtration Rate 94.7 mL/min (90-130); Glucose 117 mg/dL (65-115); Osmolality Calculated 294 mOsm/kg (285-295); Potassium 3.7 mmol/L (3.5-5.1); Sodium 143 mmol/L (136-145)
--- NOTE | 2020-05-04 06:00 | XRR_ITS ---
PROCEDURE INFORMATION: Exam: XR Chest, 1 View Exam date and time: 05/04/2020 5:00 AM Age: 35 years old Clinical indication: Device placement; Ng tube; Patient HX: Follow up; Additional info: Hypoxia TECHNIQUE: Imaging protocol: XR of the chest Views: 1 view. COMPARISON: CR XR chest 1V portable [id number] 05/02/2020 5:03 AM FINDINGS: Tubes, catheters and devices: ET tube tip is positioned 4.3 cm superior to the enrique. Lungs: There are hazy pulmonary opacities. Pleural space: Costophrenic angles are not well seen and pleural effusions are a possibility. Heart/Mediastinum: The heart is enlarged. Bones/joints: Unremarkable. Other findings: G-tube partially visualized. XR/XR chest 1V portable [id number] IMPRESSION: 1. Cardiomegaly. There are hazy pulmonary opacities which are nonspecific. Differential includes pulmonary edema and pneumonia. 2. Possible bilateral pleural effusions.
[2020-05-04 08:49] LABS: Glucose Point of Care 106 mg/dL (70-110)
[2020-05-04] MEDS: atorvastatin 40 mg Tablet 80 MG NG-TUBE (09:10)
[2020-05-04] MEDS: BuSPIRONE 5 mg Tablet 7.5 MG PO ×2 (09:10→17:48)
[2020-05-04] MEDS: clopidogrel 75 mg Tablet NG-TUBE (09:12)
[2020-05-04] MEDS: escitalopram 10 mg Tablet PO (09:12)
[2020-05-04] MEDS: metoprolol tartrate 25 mg Tablet 12.5 MG OG-TUBE ×2 (09:13→17:47)
[2020-05-04] MEDS: lisinopril 5 mg Tablet 2.5 MG PO (09:14)
[2020-05-04] MEDS: lactulose oral liq 20 gm/30 mL UDC 15 GM PO ×2 (09:21→17:52)
[2020-05-04] MEDS: pantoprazole 40 mg SDV IVP ×2 (09:25→21:03)
--- NOTE | 2020-05-04 10:20 | P.PN_ITS ---
Subjective Subjective: Interval history: Yesterday did well with lower sedation, but restless overnight. This morning she is sedated. Does not appear in discomfort. Vitals/I&O/Wt Last Vital Signs Temp 99.1 F 05/04/20 10:00 Pulse 81 05/04/20 10:00 Resp 13 05/04/20 10:00 BP 116/63 05/04/20 10:00 Pulse Ox 91 05/04/20 10:00 05/03/20 05/04/20 05/04/20 22:59 06:59 14:59 Intake Total 961.506 / 1205.236 275.35 / 1480.586 146.917 / 146.917 Output Total 550 / 2450 1900 / 4350 250 / 250 Balance 411.506 / -1244.764 -1624.65 / -2869.414 -103.083 / -103.083 Weight last 48 hrs Weight 172.082 kg Weight 175.087 kg Physical Exam Const: COMMON NORMALS: no acute distress NUTRITIONAL APPEARANCE: obese HENMT: COMMON NORMALS: oropharynx normal Neck/C-Spine: OTHER: Thick neck, unable to assess for JVD Resp: COMMON NORMALS: normal respiratory effort OTHER: Difficult to examine due to body habitus, however, does appear to have decent air entry, I do not detect adventitious sounds today. Cardio: COMMON NORMALS: regular rhythm, S1 normal heart sound present, S2 normal heart sound present and No murmurs present (Cardio) RHYTHM: regular rhythm HEART SOUNDS: S1 normal heart sound present and S2 normal heart sound present GI: COMMON NORMALS: Normal to inspection, nondistended, normoactive bowel sounds present, Soft to palpation and non-tender PALPATION: Yes Soft to palpation OTHER: Edema of abdominal wall below the umbilicus with skin wrinkling. Extremity: COMMON NORMALS: no joint enlargement GENERAL: Yes edema (3+ peripheral upper and lower edema) Neuro: COMMON NORMALS: moves all extremities Skin: COMMON NORMALS: no rashes or lesions noted GENERAL SKIN EXAM: no rashes or lesions noted OTHER: Bilateral LE cellulitis below knees. Interspersed areas of scabbing scattered from healing blisters on legs, chest. Do not see mucosal lesions. Do not see fresh lesions. Small lesions noted on lower back covered by foam dressing. Urinary Catheter Management^: [place]: Cath Placed During This Visit: yes Reason for Continuing Indwelling Catheter: Accurate Measurement of Urinary Output in Critically Ill Patients Urinary Catheter Date of Insertion: 04/27/20 Urinary Catheter Time of Insertion: 22:16 Data : 05/04/20 04:05 05/04/20 04:05 A&P Assessment and plan (1) Acute respiratory failure with hypoxia and hypercapnia: Cotinue diuresis for anasarca, severe fluid overload. Daily weaning trials. Multifactorial. Acute diastolic CHF exacerbation. Overall her volume status, oxygenation appear to be improving. She likely has obesity hypoventilation. Cannot rule out COPD, pulmonary hyp ertension, severe sleep apnea, possible contributing pneumonia. No pulmonary emboli on CTA. COVID testing negative Daily weaning trials. Appreciate pulmonology follow up. Continue diuresis. Propofol, fentanyl for sedation Discussed w mechanical process engineer. Status: Acute (2) New onset of congestive heart failure: Down to 172 kg. Continue IV diuresis. Echocardiogram is complete and poor quality and EF appears approximately 50% Consistent with acute diastolic heart failure. Status: Acute (3) Obesity hypoventilation syndrome: Will likely need BiPAP at night when discharged from the hospital Status: Acute (4) Sepsis: Sepsis appear resolved. Concern for underlying infections as below. Concern regarding possibility of pneumonia. For now continues on Zosyn. Concern regarding possibility of cellulitis of lower extremities although this likely represent venous stasis with hyperemia. Venous duplex was negative for DVT Debridement if needed once she is more stable. Continue Zosyn currently for possible PNA, cellulitis. MRSA PCR negative. Erythema of legs continued to improve and again this appears to have been secondary to severe edema and bilateral venous stasis. Still present. Mild erythema unchanged on lower abdomen. Few small areas of sloughing of supericial dermis. Sputum and blood cultures negative. Status: Acute Qualifiers: Acute respiratory failure type: with hypercapnia Sepsis acute organ dysfunction status: with acute organ dysfunction Sepsis type: sepsis due to unspecified organism Severe sepsis acute organ dysfunction type: acute respiratory failure Severe sepsis shock status: without septic shock Qualified Code(s): A41.9 - Sepsis, unspecified organism; R65.20 - Severe sepsis without septic shock; J96.02 - Acute respiratory failure with hypercapnia (5) NSTEMI (non-ST elevated myocardial infarction): On statin, Plavix. ASA had to be DC'd. Continue beta-tali low dose. She was on this at home and I want to prevent any beta-tali withdrawal. Cardiology input appreciated. She has having some spontaneous bleeding and heparin was discontinued last night. Aspirin has been discontinued. Status: Acute Additional A&P Information Tobacco dependency History of hypertension. Continue low-dose lisinopril Depression/anxiety. Continue home medications. Full code Secondary to spontaneous bleeding heparin drip has been discontinued. Lovenox DVT prophylaxis dosing. Protonix for GI prophylaxis Nutrition. Tube feeding. Nutrition has other recommendations for [facility] at higher rate and water boluses but as we are trying to reduce intake currently with diuresis I have held off on these changes. Attestations Medical Necessity Statement*: Continue admission for assessment and managemetn of respiratory failure, anasarca/severe fluid overload secondary to CHF, underlying infections with PNA, cellulitis. Coding Level of Care Code Acute Employee Relations Director for [facility] Fwd Exam Comprehensive Diagnoses Acute respiratory failure with hypoxia and hypercapnia J96.01; J96.02 New onset of congestive heart failure I50.9 Obesity hypoventilation syndrome E66.2 Sepsis A41.9; R65.20; J96.02 Acute respiratory failure type: with hypercapnia Sepsis acute organ dysfunction status: with acute organ dysfunction Sepsis type: sepsis due to unspecified organism Severe sepsis acute organ dysfunction type: acute respiratory failure Severe sepsis shock status: without septic shock NSTEMI (non-ST elevated myocardial infarction) I21.4
--- NOTE | 2020-05-04 10:38 | P.OP_ITS ---
Operative Report Date of procedure:
--- NOTE | 2020-05-04 10:38 | PM.OP ---
Operative Report Date of procedure:
[2020-05-04] MEDS: propofol 1,000 MG/100 ML INJ 30.2 MG IV ×3 (10:45→22:45)
--- NOTE | 2020-05-04 11:14 | PM.PN ---
Subjective Subjective: Interval history: failed weaning trial. PaO2 down to 50s with PEEP 10. Continue same management with daily weaning trials heading towards trach Will consider bronch if develops fever/leucocytosis Medications: Reviewed: Yes Vitals/I&O/Wt Last Vital Signs Temp 99.1 F 05/04/20 10:00 Pulse 81 05/04/20 10:00 Resp 12 05/04/20 11:00 BP 116/63 05/04/20 10:00 Pulse Ox 91 05/04/20 10:00 05/03/20 05/04/20 05/04/20 22:59 06:59 14:59 Intake Total 961.506 / 1205.236 275.35 / 1480.586 240.279 / 240.279 Output Total 550 / 2450 1900 / 4350 250 / 250 Balance 411.506 / -1244.764 -1624.65 / -2869.414 -9.721 / -9.721 Weight last 48 hrs Weight 379 lb 6 oz Weight 386 lb Physical Exam Narrative: EXAM NARRATIVE: General: lying in bed, sedated and intubated. 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 opening eyes and following commands SKIN: Bilateral legs erythema positive Urinary Catheter Management^: [place]: Cath Placed During This Visit: yes Reason for Continuing Indwelling Catheter: Accurate Measurement of Urinary Output in Critically Ill Patients Urinary Catheter Date of Insertion: 04/27/20 Urinary Catheter Time of Insertion: 22:16 Data : 05/04/20 04:05 05/04/20 04:05 A&P Assessment and plan (1) NSTEMI (non-ST elevated myocardial infarction): Status: Acute (2) Sepsis: Status: Acute Qualifiers: Sepsis type: sepsis due to unspecified organism Sepsis acute organ dysfunction status: with acute organ dysfunction Severe sepsis acute organ dysfunction type: acute respiratory failure Acute respiratory failure type: with hypercapnia Severe sepsis shock status: without septic shock Qualified Code(s): A41.9 - Sepsis, unspecified organism; R65.20 - Severe sepsis without septic shock; J96.02 - Acute respiratory failure with hypercapnia (3) Obesity hypoventilation syndrome: Status: Acute (4) Acute respiratory failure with hypoxia and hypercapnia: Status: Acute (5) New onset of congestive heart failure: Status: Acute (6) Cellulitis: Status: Acute Qualifiers: Site of cellulitis: extremity Site of cellulitis of extremity: lower extremity Laterality: right Qualified Code(s): L03.115 - Cellulitis of right lower limb (7) MARTINEZ (obstructive sleep apnea): Status: Acute (8) Morbid obesity with alveolar hypoventilation: Status: Acute 34-year-old female Ms. Kari East admitted for acute hypoxic hypercapnic respiratory failure likely secondary to obesity hypoventilation syndrome and acute heart failure secondary to ongoing NSTEMI. #Acute hypoxic hypercapnic respiratory failure likely secondary to obesity hypoventilation syndrome-possible acute CHF secondary to ongoing NSTEMI #OHS- MARTINEZ in morbidly obese patient -Latest ABG on 50% FiO2/10 PEEP/16 pressure support and pressure support ventilation: 7.40/67/56/41 -Try to come down on PEEP and pressure support and see if patient tolerates to maintain oxygenation and saturation and Continue weaning trials - Patient clinically still looks volume overloaded --17 L since admission but still needs more diuresis - On Bumex 2 mg every 8 daily; monitor input output and daily weight; can give 1 to 2 doses dimox 500mg daily -Echo: mixed systolic and diastolic heart failure -Currently on Lovenox prophylactic dose and cardiology to do LHC and RHC before discharge - CTPA, negative -Continue Zosyn for? Pneumonia and bilateral lower leg cellulitis -Monitor electrolytes and supplement accordingly while on diuretics - Will consider bronch if leucocytosis or fevers Overall she will be very challenging to extubate because of significant CHF and morbid obesity. Continue to diurese well to keep her net negative for several days while monitoring electrolytes and evaluating every day with spontaneous breathing trials for possible extubation. Rest of the management as per primary ICU team Case discussed with Dr. Pena - hospitalist on the case Attestations Medical Necessity Statement*: Acute hypoxic and hypercapnic respiratory failure still intubated and requiring mechanical ventilatory support Time Spent in Patient Care: 16 - 35 minutes (>than 50% of time spent in counselling and/or direct pt care on unit). 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[employer] Diagnoses NSTEMI (non-ST elevated myocardial infarction) I21.4 Sepsis A41.9; R65.20; J96.02 Sepsis type: sepsis due to unspecified organism Sepsis acute organ dysfunction status: with acute organ dysfunction Severe sepsis acute organ dysfunction type: acute respiratory failure Acute respiratory failure type: with hypercapnia Severe sepsis shock status: without septic shock Obesity hypoventilation syndrome E66.2 Acute respiratory failure with hypoxia and hypercapnia J96.01; J96.02 New onset of congestive heart failure I50.9 Cellulitis L03.115 Site of cellulitis: extremity Site of cellulitis of extremity: lower extremity Laterality: right MARTINEZ (obstructive sleep apnea) G47.33 Morbid obesity with alveolar hypoventilation E66.2 Time Spent (min) 33
[2020-05-04 11:22] LABS: Glucose Point of Care 104 mg/dL (70-110)
--- NOTE | 2020-05-04 12:20 | PC.NURSE ---
titrated propofol from 30 mcg/k/min to 25 mcg/k/min. Patient is tolerating well. No difficulties accepting incubation.
[2020-05-04] MEDS: propofol 1,000 MG/100 ML INJ 20.2 MG IV (14:37)
--- NOTE | 2020-05-04 14:38 | PC.NURSE ---
Titrated patient's propofol down to 20 mcg/k/min. Pt is tolerating well. Is not restless, is not fighting the vent, but still able to follow simple commands such as squeezing hands.
[2020-05-04 17:25] LABS: Glucose Point of Care 105 mg/dL (70-110)
[2020-05-04] MEDS: enoxaparin 40 mg/0.4 mL Syringe SUBCUT (17:44)
--- NOTE | 2020-05-04 18:25 | P.PN_ITS ---
Subjective Subjective: Interval history: Patient diuresed -2 L last night. Scans overall have wrinkles now. She continues to be intubated Medications: Reviewed: Yes Vitals/I&O/Wt Last Vital Signs Temp 99.7 F H 05/04/20 18:00 Pulse 84 05/04/20 18:00 Resp 16 05/04/20 18:00 BP 118/69 05/04/20 18:00 Pulse Ox 91 05/04/20 18:00 05/04/20 05/04/20 05/04/20 06:59 14:59 22:59 Intake Total 275.35 / 1480.586 390.279 / 799.885 6766 / 1508.279 Output Total 1900 / 4350 850 / 850 500 / 1350 Balance -1624.65 / -2869.414 -459.721 / -459.721 618 / 158.279 Weight last 48 hrs Weight 379 lb 6 oz Weight 386 lb Physical Exam Narrative: EXAM NARRATIVE: GENERAL: Patient is intubated and sedated. NECK: No jugular vein distension. HEENT: No cyanosis. No icterus. No pallor. HEART: Regular S1 and S2. No murmur, rub or gallop. LUNGS: decreased air entry bilaterally. ABDOMEN: Soft, nontender and nondistended. Positive bowel sounds. No guarding, rebound or tenderness. CENTRAL NERVOUS SYSTEM: Grossly nonfocal. EXTREMITIES: Lower extremities with 1+ edema bilaterally. Bilateral lower extremity venous stasis and cellulitis, appears to be improved Urinary Catheter Management^: [place]: Cath Placed During This Visit: yes Reason for Continuing Indwelling Catheter: Accurate Measurement of Urinary Output in Critically Ill Patients Urinary Catheter Date of Insertion: 04/27/20 Urinary Catheter Time of Insertion: 22:16 Data : 05/04/20 04:05 05/04/20 04:05 A&P Assessment and plan (1) NSTEMI (non-ST elevated myocardial infarction): Most likely demand ischemia. Continue current regimen once extubated and euvolemic before discharge left heart cath will be performed along with right heart Status: Acute (2) New onset of congestive heart failure: Continues to diurese well. Continue current regimen Status: Acute (3) Sepsis: As per medicine Status: Acute Qualifiers: Sepsis type: sepsis due to unspecified organism Sepsis acute organ dysfunction status: with acute organ dysfunction Severe sepsis acute organ dysfunction type: acute respiratory failure Acute respiratory failure type: with hypercapnia Severe sepsis shock status: without septic shock Qualified Code(s): A41.9 - Sepsis, unspecified organism; R65.20 - Severe sepsis without septic shock; J96.02 - Acute respiratory failure with hypercapnia (4) Wound, open, lower limb with complication: Continue as per medicine Status: Acute (5) Respiratory failure with hypercapnia: As per medicine Status: Acute Qualifiers: Chronicity: acute Qualified Code(s): J96.02 - Acute respiratory failure with hypercapnia Attestations Medical Necessity Statement*: Requires continuation hospitalization for above defined care. 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[employer] Patient Type Established History Expanded Problem Focused Exam Expanded Problem Focused Medical Decision Making Moderate Complexity Diagnoses NSTEMI (non-ST elevated myocardial infarction) I21.4 New onset of congestive heart failure I50.9 Sepsis A41.9; R65.20; J96.02 Sepsis type: sepsis due to unspecified organism Sepsis acute organ dysfunction status: with acute organ dysfunction Severe sepsis acute organ dysfunction type: acute respiratory failure Acute respiratory failure type: with hypercapnia Severe sepsis shock status: without septic shock Wound, open, lower limb with complication S81.809A Respiratory failure with hypercapnia J96.02 Chronicity: acute
--- NOTE | 2020-05-04 18:31 | PC.NURSE ---
turned patient for linen changes. Patient does not tolerate being turned and her [id number] drops.could not do a full linene change, but was able to replace yolande pads. The pads which were replaced were clean and dry.
--- NOTE | 2020-05-04 18:51 | PC.NURSE ---
After turning patient, saturation dropped to 86%. Sucitoned patient, respiratory called and at bedside. While turning patient, the patient developed what appeared to be a nose bleed. After suctioning, it was revealed to be a clot in the nare. No further bleeding from the nose.
[2020-05-04 20:57] LABS: Glucose Point of Care 97 mg/dL (70-110)
[2020-05-05] VITALS (43 sets, daily range): BP systolic 108–156; BP diastolic 59–89; PULSE 82–102; RESP 13–27; TEMP 37.1–37.7; O2SAT 89–94
[2020-05-05] MEDS: bumetanide 0.25 mg/mL SDV 10 mL 2 MG IV ×3 (01:23→17:50)
[2020-05-05] MEDS: piperacillin-tazobactam 3.375 GM in sodium chloride 0.9% (plus) 50 ML IV ×3 (01:23→17:50)
[2020-05-05] MEDS: propofol 1,000 MG/100 ML INJ 20 MG IV ×2 (01:24→05:59)
[2020-05-05] MEDS: ipratropium-albuterol 3 mL Neb INHALATION ×4 (03:24→20:36)
[2020-05-05 04:31] LABS: ABG PH Result 7.41 (7.35-7.45); Base Excess ABG 14.1 mmol/L (-2.0-2.0); Blood Gas Allen Test Pos; Blood Gas Operator Identificat JB; Blood Gas Sample Site Radial, right; Blood Gas Sample Type Arterial; Blood Gas Tidal Volume 0.45; HCO3 ABG 42.1 mmol/L (22-26); Oxygen Device VENT; PO2 ABG 60.5 mmHg (80.0-100.0)
[2020-05-05 04:32] LABS: Basophils % 0.3 %; Eosinophils # 0.3 10^3/uL (0.0-0.8); Eosinophils % 4.5 %; Hematocrit 45.2 % (37.0-47.0); Hemoglobin 13.2 g/dL (11.5-15.3); Lymphocytes # 0.8 10^3/uL (0.8-4.8); Lymphocytes % 11.4 %; Mean Corpuscular HGB Conc 29.2 g/dL (30.0-36.0); Mean Corpuscular Hemoglobin 27.7 pg (28.0-34.0); Mean Corpuscular Volume 94.8 fL (81-99); Mean Platelet Volume 11.3 fL (7.4-10.4); Monocytes # 0.8 10^3/uL (0.2-0.9); Monocytes % 11.4 %; Neutrophils # 4.93 10^3/uL (1.8-7.7); Nucleated Red Blood Cells % 0 %; Platelet Count 172 10^3/cmm (130-400); Red Blood Count 4.77 10^6/uL (4.1-5.3); Red Cell Distribution Width 17.5 % (12.1-15.1); White Blood Count 6.9 10^3/uL (4.0-10.0)
[2020-05-05 04:34] LABS: ABG PCO2 67.1 mmHg (35-45)
[2020-05-05 05:00] LABS: Alanine Aminotransferase 20 U/L (0-33); Albumin Level 2.7 g/dL (3.5-5.2); Alkaline Phosphatase 95 IU/L (35-105); Anion Gap 8.8 (5-19); Aspartate Amino Transferase 25 U/L (0-32); Blood Urea Nitrogen 27 mg/dL (6-20); Calcium 8.6 mg/dL (8.5-10.5); Carbon Dioxide 40 mmol/L (22-29); Chloride 99 mmol/L (98-107); Globulin 4.4 g/dL (1.3-4.6); Glomerular Filtration Rate 94.7 mL/min (90-130); Glucose 93 mg/dL (65-115); Osmolality Calculated 295 mOsm/kg (285-295); Potassium 3.8 mmol/L (3.5-5.1); Sodium 144 mmol/L (136-145); Total Protein 7.1 g/dL (6.6-8.7)
[2020-05-05 07:41] LABS: Glucose Point of Care 91 mg/dL (70-110)
[2020-05-05] MEDS: clopidogrel 75 mg Tablet NG-TUBE (08:56)
[2020-05-05] MEDS: atorvastatin 40 mg Tablet 80 MG NG-TUBE (08:56)
[2020-05-05] MEDS: BuSPIRONE 5 mg Tablet 7.5 MG PO ×2 (08:56→17:51)
[2020-05-05] MEDS: pantoprazole 40 mg SDV IVP ×2 (08:56→20:32)
[2020-05-05] MEDS: escitalopram 10 mg Tablet PO (08:57)
[2020-05-05] MEDS: lactulose oral liq 20 gm/30 mL UDC 15 GM PO ×2 (08:57→17:52)
[2020-05-05] MEDS: metoprolol tartrate 25 mg Tablet 12.5 MG OG-TUBE ×2 (08:57→17:51)
[2020-05-05] MEDS: lisinopril 5 mg Tablet 2.5 MG PO (08:57)
--- NOTE | 2020-05-05 11:40 | P.PN_ITS ---
Subjective Subjective: Interval history: Today she is awake, alert, following commands. Denied pain. Was reluctant to agree that breathing was comfortable, however, did agree was as comfortable as possible given the situation. Discussed with her little bit regarding continued weaning trials, as well as lack of success so far. Discussed low bit as well regarding possible need for tracheostomy in case there is no possibility of weaning of mechanical ventilator support by end of the week. She was not enthusiastic about this. Did agree to give it a thought. Understands does not need to make any decision at this time. Discussed all the above risks and benefits, as well as risks of continuing prolonged mechanical ventilation. Vitals/I&O/Wt Last Vital Signs Temp 99.3 F 05/05/20 06:06 Pulse 87 05/05/20 10:00 Resp 21 H 05/05/20 11:17 BP 136/74 05/05/20 09:00 Pulse Ox 94 05/05/20 09:00 05/04/20 05/05/20 05/05/20 22:59 06:59 14:59 Intake Total 1366.747 / 1757.026 894.697 / 2651.723 47.167 / 47.167 Output Total 900 / 1750 1450 / 3200 1350 / 1350 Balance 466.747 / 7.026 -555.303 / -548.277 -1302.833 / -1302.833 Weight last 48 hrs Weight 167.943 kg Weight 167.943 kg Weight 172.082 kg Physical Exam Const: COMMON NORMALS: no acute distress and alert NUTRITIONAL APPEARANCE: obese HENMT: COMMON NORMALS: oropharynx normal Neck/C-Spine: OTHER: Thick neck, unable to assess for JVD Resp: COMMON NORMALS: normal respiratory effort OTHER: Difficult to examine due to body habitus, however, does appear to have decent air entry, I do not detect adventitious sounds today. Cardio: COMMON NORMALS: regular rhythm, S1 normal heart sound present, S2 normal heart sound present and No murmurs present (Cardio) RHYTHM: regular rhythm HEART SOUNDS: S1 normal heart sound present and S2 normal heart sound present GI: COMMON NORMALS: Normal to inspection, nondistended, normoactive bowel sounds present, Soft to palpation and non-tender PALPATION: Yes Soft to palpation OTHER: Edema of abdominal wall below the umbilicus with further skin wrinkling. Edema appears to be gradually decreasing, but still quite a bit swollen, with pitting edema on upper thighs, abdomen. Extremity: COMMON NORMALS: no joint enlargement GENERAL: Yes edema (3+ peripheral upper and lower edema) Neuro: COMMON NORMALS: moves all extremities SENSORIUM/ORIENTATION: Yes alert Skin: COMMON NORMALS: no rashes or lesions noted GENERAL SKIN EXAM: no rashes or lesions noted OTHER: Bilateral LE cellulitis below knees. Interspersed areas of scabbing scattered from healing blisters on legs, chest. Do not see mucosal lesions. Do not see fresh lesions. Small lesions noted on lower back covered by foam dressing. Urinary Catheter Management^: [place]: Cath Placed During This Visit: yes Reason for Continuing Indwelling Catheter: Accurate Measurement of Urinary Output in Critically Ill Patients Urinary Catheter Date of Insertion: 04/27/20 Urinary Catheter Time of Insertion: 22:16 Data : 05/05/20 03:55 05/05/20 03:55 A&P Assessment and plan (1) Acute respiratory failure with hypoxia and hypercapnia: Still requiring PEEP of 16, but will attempt to wean down as well as pressure support. Lungs are without adventitious sounds. Difficult to examine due to body habit us. Did have persistent congestive changes on chest x-ray. Still quite a bit of anasarca, although some visible wrinkling on the skin over top of the edema, and so appears to be gradually decreasing. Weight appears to be gradually decreasing as well, today down to 167 kg. 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 Continue daily weaning attempts. If unable to extubate by the end of the week may require tracheostomy to allow liberation from the ventilator. Cotinue diuresis for anasarca, severe fluid overload. Daily weaning trials. She likely has obesity hypoventilation. Cannot rule out COPD, pulmonary hypertension, severe sleep apnea, possible contributing pneumonia. No pulmonary emboli on CTA. COVID testing negative PT has been seeing her as well, although she has not been able to participate very much. Has been performing range of motion activities. Continue to attempt active exercises as tolerated/safe. Status: Acute (2) New onset of congestive heart failure: Down to 167 kg. Continue IV diuresis. Echocardiogram is complete and poor quality and EF appears approximately 50% Consistent with acute diastolic heart failure. Will need additional evaluation by left and right heart cath prior to discharge. Status: Acute (3) Obesity hypoventilation syndrome: Will likely need BiPAP at night when discharged from the hospital Status: Acute (4) Sepsis: Sepsis appear resolved. Concern for underlying infections as below. Concern regarding possibility of pneumonia. For now continues on Zosyn. Concern regarding possibility of cellulitis of lower extremities although this likely represent venous stasis with hyperemia. Venous duplex was negative for DVT On the legs erythema appears to be perhaps slightly better. Debridement if needed once she is more stable. Continue Zosyn currently for possible PNA, cellulitis. MRSA PCR negative. Erythema of legs continued to improve and again this appears to have been secondary to severe edema and bilateral venous stasis. Still present. Mild erythema unchanged on lower abdomen. Few small areas of sloughing of supericial dermis. Sputum and blood cultures negative. Status: Acute Qualifiers: Sepsis type: sepsis due to unspecified organism Sepsis acute organ dysfunction status: with acute organ dysfunction Severe sepsis acute organ dysfunction type: acute respiratory failure Acute respiratory failure type: with hypercapnia Severe sepsis shock status: without septic shock Qualified Code(s): A41.9 - Sepsis, unspecified organism; R65.20 - Severe sepsis without septic shock; J96.02 - Acute respiratory failure with hypercapnia (5) NSTEMI (non-ST elevated myocardial infarction): On statin, Plavix. ASA had to be DC'd. Continue beta-tali low dose. She was on this at home and I want to prevent any beta-tali withdrawal. Cardiology input appreciated. She has having some spontaneous bleeding and heparin was discontinued last night. Aspirin has been discontinued. Status: Acute Additional A&P Information Tobacco dependency History of hypertension. Continue low-dose lisinopril Depression/anxiety. Continue home medications. Full code Secondary to spontaneous bleeding heparin drip has been discontinued. Lovenox DVT prophylaxis dosing. Protonix for GI prophylaxis. Nutrition. Tube feeding. Nutrition has other recommendations for Pulmocare at higher rate and water boluses but as we are trying to reduce intake currently with diuresis I have held off on these changes. Attestations Medical Necessity Statement*: Continue admission for management of respiratory failure, weaning off mechanical ventilatory support. 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
--- NOTE | 2020-05-05 11:46 | P.PN_ITS ---
Subjective Subjective: Interval history: Today mentation is much better and she is following commands. Failed a weaning trial again would continue to come down on PEEP and pressure support and will try weaning trial again tomorrow morning Medications: Reviewed: Yes Vitals/I&O/Wt Last Vital Signs Temp 99.3 F 05/05/20 06:06 Pulse 87 05/05/20 10:00 Resp 21 H 05/05/20 11:17 BP 136/74 05/05/20 09:00 Pulse Ox 94 05/05/20 09:00 05/04/20 05/05/20 05/05/20 22:59 06:59 14:59 Intake Total 1366.747 / 1757.026 894.697 / 2651.723 47.167 / 47.167 Output Total 900 / 1750 1450 / 3200 1350 / 1350 Balance 466.747 / 7.026 -555.303 / -548.277 -1302.833 / -1302.833 Weight last 48 hrs Weight 370 lb 4 oz Weight 370 lb 4 oz Weight 379 lb 6 oz Physical Exam Narrative: EXAM NARRATIVE: General: lying in bed, , intubated. 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 opening eyes and following commands SKIN: Bilateral legs erythema positive Urinary Catheter Management^: [place]: Cath Placed During This Visit: yes Reason for Continuing Indwelling Catheter: Accurate Measurement of Urinary Output in Critically Ill Patients Urinary Catheter Date of Insertion: 04/27/20 Urinary Catheter Time of Insertion: 22:16 Data : 05/05/20 03:55 05/05/20 03:55 A&P Assessment and plan (1) NSTEMI (non-ST elevated myocardial infarction): Status: Acute (2) Sepsis: Status: Acute Qualifiers: Sepsis type: sepsis due to unspecified organism Sepsis acute organ dysfunction status: with acute organ dysfunction Severe sepsis acute organ dysfunction type: acute respiratory failure Acute respiratory failure type: with hypercapnia Severe sepsis shock status: without septic shock Qualified Code(s): A41.9 - Sepsis, unspecified organism; R65.20 - Severe sepsis without septic shock; J96.02 - Acute respiratory failure with hypercapnia (3) Obesity hypoventilation syndrome: Status: Acute (4) Acute respiratory failure with hypoxia and hypercapnia: Status: Acute (5) New onset of congestive heart failure: Status: Acute (6) Cellulitis: Status: Acute Qualifiers: Site of cellulitis: extremity Site of cellulitis of extremity: lower extremity Laterality: right Qualified Code(s): L03.115 - Cellulitis of right lower limb (7) MARTINEZ (obstructive sleep apnea): Status: Acute (8) Morbid obesity with alveolar hypoventilation: Status: Acute 34-year-old female Ms. Kari East admitted for acute hypoxic hypercapnic respiratory failure likely secondary to obesity hypoventilation syndrome and acute heart failure secondary to ongoing NSTEMI. #Acute hypoxic hypercapnic respiratory failure likely secondary to obesity hypoventilation syndrome-possible acute CHF secondary to ongoing NSTEMI #OHS- MARTINEZ in morbidly obese patient -Latest ABG on 50% FiO2/10 PEEP/16 pressure support and pressure support venti lation: 7.4 // -Try to come down on PEEP and pressure support and see if patient tolerates to maintain oxygenation and saturation and Continue weaning trials - Patient clinically still looks volume overloaded-but improved significantly -Net - 21 L since admission -continue diuresis - On Bumex 2 mg every 8 daily; monitor input output and daily weight; can give 1 to 2 doses dimox 500mg daily -Echo: mixed systolic and diastolic heart failure -Currently on Lovenox prophylactic dose and cardiology to do LHC and RHC before discharge - CTPA, negative -Continue Zosyn for bilateral lower leg cellulitis -Monitor electrolytes and supplement accordingly while on diuretics -She seems like close to getting extubated in 1 to 2 days-if fails then would plan for tracheostomy next week Overall she will be very challenging to extubate because of significant CHF and morbid obesity. Continue to diurese well to keep her net negative while monitoring electrolytes and evaluating every day with spontaneous breathing trials for possible extubation. Rest of the management as per primary ICU team Case discussed with Dr. Pena - hospitalist on the case Attestations Medical Necessity Statement*: Acute hypoxic/hypercapnic respiratory failure still requiring intubation Time Spent in Patient Care: 16 - 35 minutes (>than 50% of time spent in counselling and/or direct pt care on unit) . Coding Level of Care Code Acute Color Buffer for Chg Fwd Diagnoses NSTEMI (non-ST elevated myocardial infarction) I21.4 Sepsis A41.9; R65.20; J96.02 Sepsis type: sepsis due to unspecified organism Sepsis acute organ dysfunction status: with acute organ dysfunction Severe sepsis acute organ dysfunction type: acute respiratory failure Acute respiratory failure type: with hypercapnia Severe sepsis shock status: without septic shock Obesity hypoventilation syndrome E66.2 Acute respiratory failure with hypoxia and hypercapnia J96.01; J96.02 New onset of congestive heart failure I50.9 Cellulitis L03.115 Site of cellulitis: extremity Site of cellulitis of extremity: lower extremity Laterality: right MARTINEZ (obstructive sleep apnea) G47.33 Morbid obesity with alveolar hypoventilation E66.2
[2020-05-05 12:19] LABS: Glucose Point of Care 111 mg/dL (70-110)
[2020-05-05 17:02] LABS: Glucose Point of Care 101 mg/dL (70-110)
[2020-05-05] MEDS: enoxaparin 40 mg/0.4 mL Syringe SUBCUT (17:51)
--- NOTE | 2020-05-05 18:54 | P.PN_ITS ---
Subjective Subjective: Interval history: Today patient is more awake she is sitting in the recliner. She has not diuresed adequately I am not sure whether it is just not registered as she is only -500. She is more awake she understands but still intubated Medications: Reviewed: Yes Vitals/I&O/Wt Last Vital Signs Temp 98.7 F 05/05/20 15:00 Pulse 90 05/05/20 18:00 Resp 14 05/05/20 17:47 BP 140/80 05/05/20 18:00 Pulse Ox 93 05/05/20 18:00 05/05/20 05/05/20 05/05/20 06:59 14:59 22:59 Intake Total 894.697 / 2651.723 143.250 / 143.250 600 / 743.250 Output Total 1450 / 3200 1350 / 1350 850 / 2200 Balance -555.303 / -548.277 -1206.750 / -1206.750 -250 / -1456.750 Weight last 48 hrs Weight 370 lb 4 oz Weight 370 lb 4 oz Weight 379 lb 6 oz Physical Exam Narrative: EXAM NARRATIVE: GENERAL: Patient is intubated and sedated. NECK: No jugular vein distension. HEENT: No cyanosis. No icterus. No pallor. HEART: Regular S1 and S2. No murmur, rub or gallop. LUNGS: decreased air entry bilaterally. ABDOMEN: Soft, nontender and nondistended. Positive bowel sounds. No guarding, rebound or tenderness. CENTRAL NERVOUS SYSTEM: Grossly nonfocal. EXTREMITIES: Lower extremities with 1+ edema bilaterally. Bilateral lower extremity venous stasis and cellulitis, appears to be improved Urinary Catheter Management^: [place]: Cath Placed During This Visit: yes Reason for Continuing Indwelling Catheter: Accurate Measurement of Urinary Output in Critically Ill Patients Urinary Catheter Date of Insertion: 04/27/20 Urinary Catheter Time of Insertion: 22:16 Data : 05/05/20 03:55 05/05/20 03:55 A&P Assessment and plan (1) NSTEMI (non-ST elevated myocardial infarction): Demand ischemia. Continue current regimen. Status: Acute (2) New onset of congestive heart failure: We will continue to diurese as I think output has not been documented well. Status: Acute (3) Sepsis: As per medicine Status: Acute Qualifiers: Sepsis type: sepsis due to unspecified organism Sepsis acute organ dysfunction status: with acute organ dysfunction Severe sepsis acute organ dysfunction type: acute respiratory failure Acute respiratory failure type: with hypercapnia Severe sepsis shock status: without septic shock Qualified Code(s): A41.9 - Sepsis, unspecified organism; R65.20 - Severe sepsis without septic shock; J96.02 - Acute respiratory failure with hypercapnia (4) Wound, open, lower limb with complication: Continue as per medicine Status: Acute (5) Respiratory failure with hypercapnia: As per medicine Status: Acute Qualifiers: Chronicity: acute Qualified Code(s): J96.02 - Acute respiratory failure with hypercapnia Attestations Medical Necessity Statement*: Require continuation hospitalization for above defined care. Coding Level of Care Code Established Pt Acute Fresh Food Manager for g Fwd Patient Type Established History Expanded Problem Focused Exam Expanded Problem Focused Medical Decision Making Moderate Complexity Diagnoses NSTEMI (non-ST elevated myocardial infarction) I21.4 New onset of congestive heart failure I50.9 Sepsis A41.9; R65.20; J96.02 Sepsis type: sepsis due to unspecified organism Sepsis acute organ dysfunction status: with acute organ dysfunction Severe sepsis acute organ dysfunction type: acute respiratory failure Acute respiratory failure type: with hypercapnia Severe sepsis shock status: without septic shock Wound, open, lower limb with complication S81.809A Respiratory failure with hypercapnia J96.02 Chronicity: acute
[2020-05-06] VITALS (46 sets, daily range): BP systolic 109–151; BP diastolic 66–82; PULSE 83–108; RESP 10–21; TEMP 37.2–38; O2SAT 89–98
[2020-05-06] MEDS: ipratropium-albuterol 3 mL Neb INHALATION ×4 (02:06→20:10)
[2020-05-06] MEDS: piperacillin-tazobactam 3.375 GM in sodium chloride 0.9% (plus) 50 ML IV ×2 (02:32→10:18)
[2020-05-06] MEDS: bumetanide 0.25 mg/mL SDV 10 mL 2 MG IV ×3 (02:33→17:48)
[2020-05-06 04:08] LABS: ABG PCO2 56.3 mmHg (35-45); ABG PH Result 7.48 (7.35-7.45); Arterial Blood Gas Hematocrit 42.4 % (37-47); Base Excess ABG 15.8 mmol/L (-2.0-2.0); Blood Gas Allen Test Pos; Blood Gas Sample Site Radial, right; Blood Gas Sample Type Arterial; Blood Gas Tidal Volume 0.45; HCO3 ABG 42.1 mmol/L (22-26); Oxygen Device VENT; PO2 ABG 53.1 mmHg (80.0-100.0)
[2020-05-06 05:08] LABS: Basophils % 0.5 %; Eosinophils # 0.3 10^3/uL (0.0-0.8); Eosinophils % 3.3 %; Hematocrit 44.9 % (37.0-47.0); Hemoglobin 13.2 g/dL (11.5-15.3); Lymphocytes # 0.8 10^3/uL (0.8-4.8); Mean Corpuscular HGB Conc 29.4 g/dL (30.0-36.0); Mean Corpuscular Hemoglobin 27.4 pg (28.0-34.0); Mean Corpuscular Volume 93.3 fL (81-99); Mean Platelet Volume 11.4 fL (7.4-10.4); Monocytes # 0.7 10^3/uL (0.2-0.9); Monocytes % 8.7 %; Neutrophils % 77.3 %; Nucleated Red Blood Cells % 0 %; Platelet Count 156 10^3/cmm (130-400); Red Blood Count 4.81 10^6/uL (4.1-5.3); Red Cell Distribution Width 17.2 % (12.1-15.1); White Blood Count 8.4 10^3/uL (4.0-10.0)
[2020-05-06 06:07] LABS: Alanine Aminotransferase 21 U/L (0-33); Albumin Level 2.9 g/dL (3.5-5.2); Alkaline Phosphatase 112 IU/L (35-105); Anion Gap 11.5 (5-19); Aspartate Amino Transferase 27 U/L (0-32); Blood Urea Nitrogen 24 mg/dL (6-20); Calcium 8.9 mg/dL (8.5-10.5); Carbon Dioxide 39 mmol/L (22-29); Chloride 98 mmol/L (98-107); Globulin 4.6 g/dL (1.3-4.6); Glomerular Filtration Rate 113.1 mL/min (90-130); Glucose 112 mg/dL (65-115); Osmolality Calculated 298 mOsm/kg (285-295); Potassium 3.5 mmol/L (3.5-5.1); Sodium 145 mmol/L (136-145); Total Bilirubin 1.2 mg/dL (0.15-1.2); Total Protein 7.5 g/dL (6.6-8.7)
[2020-05-06 07:36] LABS: Glucose Point of Care 117 mg/dL (70-110)
--- NOTE | 2020-05-06 07:43 | XR_ITS ---
WS: [id number] Portable AP supine chest, 05/06/2020 Clinical Data: fever Comparison: Portable chest, 05/04/2020. Findings: The heart remains enlarged. There is a poor inspiratory effort. Bilateral pulmonary opaciti es are present which may represent acute pneumonia. The pulmonary vascularity is not increased. No no dules, masses or effusions are seen. The endotracheal tube remains above the enrique. The nasogastric tube ends in the region of the stomach. Monitor leads are on the chest wall. XR/XR chest 1V portable [id number] Impression: 1. No change in bilateral pulmonary opacities and cardiomegaly. 2. No change in endotracheal tube and nasogastric tube.
--- NOTE | 2020-05-06 09:18 | PM.PN ---
Subjective Subjective: Interval history: Awake, alert. When asked if in pain gestures at her ET tube indicating that she wants it taken out. Vitals/I&O/Wt Last Vital Signs Temp 100.4 F H 05/06/20 09:00 Pulse 108 H 05/06/20 09:00 Resp 14 05/06/20 08:07 BP 109/74 05/06/20 09:00 Pulse Ox 98 05/06/20 09:00 05/05/20 05/06/20 05/06/20 22:59 06:59 14:59 Intake Total 846 / 989.250 383.125 / 1372.375 Output Total 1750 / 3100 1650 / 4750 Balance -904 / -2110.750 -1266.875 / -3377.625 Weight last 48 hrs Weight 164.229 kg Weight 167.943 kg Weight 167.943 kg Physical Exam Const: COMMON NORMALS: no acute distress and alert NUTRITIONAL APPEARANCE: obese HENMT: COMMON NORMALS: oropharynx normal Neck/C-Spine: OTHER: Thick neck, unable to assess for JVD Resp: COMMON NORMALS: normal respiratory effort OTHER: Difficult to examine due to body habitus, however, does appear to have decent air entry, I do not detect adventitious sounds today. Cardio: COMMON NORMALS: regular rhythm, S1 normal heart sound present, S2 normal heart sound present and No murmurs present (Cardio) RHYTHM: regular rhythm HEART SOUNDS: S1 normal heart sound present and S2 normal heart sound present GI: COMMON NORMALS: Normal to inspection, nondistended, normoactive bowel sounds present, Soft to palpation and non-tender PALPATION: Yes Soft to palpation OTHER: Edema of abdominal wall below the umbilicus with further skin wrinkling. Edema gradually decreasing, with pitting edema still on upper thighs, abdomen. Extremity: COMMON NORMALS: no joint enlargement GENERAL: Yes edema (3+ peripheral upper and lower edema) Neuro: COMMON NORMALS: moves all extremities SENSORIUM/ORIENTATION: Yes alert Skin: COMMON NORMALS: no rashes or lesions noted GENERAL SKIN EXAM: no rashes or lesions noted OTHER: Bilateral LE cellulitis below knees. Interspersed areas of scabbing scattered from healing blisters on legs, chest. Do not see mucosal lesions. Do not see fresh lesions. Small lesions noted on lower back covered by foam dressing. Urinary Catheter Management^: [place]: Cath Placed During This Visit: yes Reason for Continuing Indwelling Catheter: Accurate Measurement of Urinary Output in Critically Ill Patients Urinary Catheter Date of Insertion: 04/27/20 Urinary Catheter Time of Insertion: 22:16 Data : 05/06/20 04:27 05/06/20 04:27 A&P Assessment and plan (1) Acute respiratory failure with hypoxia and hypercapnia: Today she is spiking a low-grade temperature 100.4. UA appears to show 15-25 WBCs, follow-up urine culture, as this is collected from a indwelling Loredo. Has some persistent infiltrates on chest x-ray. Possibility of pneumonia. Will change antibiotics to cefepime and vancomycin as per discussion with provider contracting consultant. Discussed also with RT and provider contracting consultant regarding noted air leak. Appears this is somewhat positional. Cuff has been reinflated. RT will monitor for recurrence. Continue attempts to wean vent support. Did have persistent congestive changes on chest x-ray. Cannot exclude also underlying pneumonia. Still quite a bit of anasarca, although some visible wrinkling on the skin over top of the edema, and so appears to be gradually decreasing. Weight appears to be gradually decreasing. Appreciate additional provider contracting consultant recommendations. Continue daily weaning attempts. If unable to extubate by the end of the week may require tracheostomy to allow liberation from the ventilator. Cotinue diuresis for anasarca, severe fluid overload. Daily weaning trials. She likely has obesity hypoventilation. Cannot rule out COPD, pulmonary hypertension, severe sleep apnea, possible contributing pneumonia. No pulmonary emboli on CTA. COVID testing negative PT has been seeing her as well, although she has not been able to participate very much. Has been performing range of motion activities. Continue to attempt active exercises as tolerated/safe. Status: Acute (2) New onset of congestive heart failure: Down to 164 kg. Continue IV diuresis. Echocardiogram is complete and poor quality and EF appears approximately 50% Consistent with acute diastolic heart failure. Will need additional evaluation by left and right heart cath prior to discharge. Status: Acute (3) Obesity hypoventilation syndrome: Will likely need BiPAP at night when discharged from the hospital Status: Acute (4) Sepsis: Sepsis appear resolved. Concern for underlying infections as below. Concern regarding possibility of pneumonia. For now continues on Zosyn. Concern regarding possibility of cellulitis of lower extremities although this likely represent venous stasis with hyperemia. Venous duplex was negative for DVT On the legs erythema appears to be perhaps slightly better. Debridement if needed once she is more stable. Continue Zosyn currently for possible PNA, cellulitis. MRSA PCR negative. Erythema of legs continued to improve and again this appears to have been secondary to severe edema and bilateral venous stasis. Still present. Mild erythema unchanged on lower abdomen. Few small areas of sloughing of supericial dermis. Sputum and blood cultures negative. Status: Acute Qualifiers: Sepsis type: sepsis due to unspecified organism Sepsis acute organ dysfunction status: with acute organ dysfunction Severe sepsis acute organ dysfunction type: acute respiratory failure Acute respiratory failure type: with hypercapnia Severe sepsis shock status: without septic shock Qualified Code(s): A41.9 - Sepsis, unspecified organism; R65.20 - Severe sepsis without septic shock; J96.02 - Acute respiratory failure with hypercapnia (5) NSTEMI (non-ST elevated myocardial infarction): On statin, Plavix. ASA had to be DC'd. Continue beta-tali low dose. She was on this at home and I want to prevent any beta-tali withdrawal. Cardiology input appreciated. She has having some spontaneous bleeding and heparin was discontinued last night. Aspirin has been discontinued. Status: Acute Additional A&P Information Tobacco dependency History of hypertension. Continue low-dose lisinopril Depression/anxiety. Continue home medications. Full code Secondary to spontaneous bleeding heparin drip has been discontinued. Lovenox DVT prophylaxis dosing. Protonix for GI prophylaxis. Nutrition. Tube feeding. Nutrition has other recommendations for [facility] at higher rate and water boluses but as we are trying to reduce intake currently with diuresis I have held off on these changes. Attestations Medical Necessity Statement*: Continue admission for assessment management of respiratory failure, CHF, possible pneumonia, cellulitis, with sepsis. Coding Level of Care Code Acute Pig Handler for [facility] Diagnoses Acute respiratory failure with hypoxia and hypercapnia J96.01; J96.02 New onset of congestive heart failure I50.9 Obesity hypoventilation syndrome E66.2 Sepsis A41.9; R65.20; J96.02 Sepsis type: sepsis due to unspecified organism Sepsis acute organ dysfunction status: with acute organ dysfunction Severe sepsis acute organ dysfunction type: acute respiratory failure Acute respiratory failure type: with hypercapnia Severe sepsis shock status: without septic shock NSTEMI (non-ST elevated myocardial infarction) I21.4
[2020-05-06 09:28] LABS: Add Urine Microscopic? YES; Bacteria Urine TRACE; Bilirubin Urine 1+ (NEGATIVE); Blood Urine 3+ (Negative); Glucose Urine UA Norm (Normal); Ketones Urine 1+ (Negative); Leukocyte Esterase Urine Trace (Negative); Nitrate Urine Negative (Negative); Other Sediment, Urine BUD YEAST W/HYPHAE; Protein Urine 1+ (Negative); RBC Urine 25-40 /hpf (0-2); Specific Gravity, Urine 1.005 (1.005-1.030); Urine Appearance Cloudy (CLEAR); Urine Color Yellow (Yellow); Urobilinogen Urine 4+ mg/dL (Negative); WBC Urine 15-25 /hpf (0-5)
[2020-05-06 09:29] LABS: Add Urine Culture? Yes
[2020-05-06] MEDS: pantoprazole 40 mg SDV IVP ×2 (10:11→20:54)
[2020-05-06] MEDS: lactulose oral liq 20 gm/30 mL UDC 15 GM PO ×2 (10:12→17:49)
[2020-05-06] MEDS: clopidogrel 75 mg Tablet NG-TUBE (10:13)
[2020-05-06] MEDS: lisinopril 5 mg Tablet 2.5 MG PO (10:13)
[2020-05-06] MEDS: escitalopram 10 mg Tablet PO (10:14)
[2020-05-06] MEDS: metoprolol tartrate 25 mg Tablet 12.5 MG OG-TUBE ×2 (10:15→17:49)
[2020-05-06] MEDS: BuSPIRONE 5 mg Tablet 7.5 MG PO ×2 (10:15→17:49)
[2020-05-06] MEDS: atorvastatin 40 mg Tablet 80 MG NG-TUBE (10:16)
[2020-05-06 11:24] LABS: Glucose Point of Care 116 mg/dL (70-110)
[2020-05-06] MEDS: cefepime 2,000 MG in sodium chloride 0.9% (plus) 50 ML 100 MG IV ×2 (12:42→23:05)
--- NOTE | 2020-05-06 17:14 | P.PN_ITS ---
Subjective Subjective: Interval history: More awake and oriented. Continues to diurese adequately. Charting is not optimal though Medications: Reviewed: Yes Vitals/I&O/Wt Last Vital Signs Temp 100.0 F H 05/06/20 10:00 Pulse 93 05/06/20 16:00 Resp 18 05/06/20 16:08 BP 135/78 05/06/20 16:00 Pulse Ox 95 05/06/20 16:00 05/06/20 05/06/20 05/06/20 06:59 14:59 22:59 Intake Total 433.125 / 1422.375 Output Total 1650 / 4750 800 / 800 Balance -1216.875 / -3327.625 -800 / -800 Weight last 48 hrs Weight 362 lb 1 oz Weight 370 lb 4 oz Weight 370 lb 4 oz Physical Exam Narrative: EXAM NARRATIVE: GENERAL: Patient is intubated but oriented follows the command. Laying in the bed ready for physical therapy NECK: No jugular vein distension. HEENT: No cyanosis. No icterus. No pallor. HEART: Regular S1 and S2. No murmur, rub or gallop. LUNGS: No crackles bilaterally. ABDOMEN: Soft, nontender and nondistended. Positive bowel sounds. No guarding, rebound or tenderness. CENTRAL NERVOUS SYSTEM: Grossly nonfocal. EXTREMITIES: Lower extremities with 1+ edema bilaterally. Cellulitis has improved Urinary Catheter Management^: [place]: Cath Placed During This Visit: yes Reason for Continuing Indwelling Catheter: Accurate Measurement of Urinary Output in Critically Ill Patients Urinary Catheter Date of Insertion: 04/27/20 Urinary Catheter Time of Insertion: 22:16 Data : 05/06/20 04:27 05/06/20 04:27 Micro: Microbiology 05/06/20 10:20 Gram Stain - Final Sputum - Expectorated Sputum 05/06/20 09:19 Blood Culture - Preliminary Blood SPECIMEN COLLECTED 05/06/20 09:10 Blood Culture - Preliminary Blood SPECIMEN COLLECTED A&P Assessment and plan (1) NSTEMI (non-ST elevated myocardial infarction): Will continue current regimen. As above non-STEMI was type II most likely demand ischemia. Continue medical management Status: Acute (2) New onset of congestive heart failure: Continue diuresis with Bumex Status: Acute (3) Sepsis: As per medicine Status: Acute Qualifiers: Sepsis type: sepsis due to unspecified organism Sepsis acute organ dysfunction status: with acute organ dysfunction Severe sepsis acute organ dysfunction type: acute respiratory failure Acute respiratory failure type: with hypercapnia Severe sepsis shock status: without septic shock Qualified Code(s): A41.9 - Sepsis, unspecified organism; R65.20 - Severe sepsis without septic shock; J96.02 - Acute respiratory failure with hypercapnia (4) Wound, open, lower limb with complication: Continue as per medicine Status: Acute (5) Respiratory failure with hypercapnia: As per medicine Status: Acute Qualifiers: Chronicity: acute Qualified Code(s): J96.02 - Acute respiratory failure with hypercapnia Attestations Medical Necessity Statement*: Require continuation hospitalization for above defined care. Coding Level of Care Code Established Pt Acute Logistics Management Specialist for Nal[facility] Patient Type Established History Expanded Problem Focused Exam Expanded Problem Focused Medical Decision Making Moderate Complexity Diagnoses NSTEMI (non-ST elevated myocardial infarction) I21.4 New onset of congestive heart failure I50.9 Sepsis A41.9; R65.20; J96.02 Sepsis type: sepsis due to unspecified organism Sepsis acute organ dysfunction status: with acute organ dysfunction Severe sepsis acute organ dysfunction type: acute respiratory failure Acute respiratory failure type: with hypercapnia Severe sepsis shock status: without septic shock Wound, open, lower limb with complication S81.809A Respiratory failure with hypercapnia J96.02 Chronicity: acute
--- NOTE | 2020-05-06 17:14 | PM.PN ---
Subjective Subjective: Interval history: Awake and responding to commands. But still requiring high PEEP and pressure support plan needs to make her sit and try spontaneous mode. New fever spikes changed antibiotic coverage to Vanco and cefepime to cover HAP. UA and culture sent Medications: Reviewed: Yes Vitals/I&O/Wt Last Vital Signs Temp 100.0 F H 05/06/20 10:00 Pulse 93 05/06/20 16:00 Resp 18 05/06/20 16:08 BP 135/78 05/06/20 16:00 Pulse Ox 95 05/06/20 16:00 05/06/20 05/06/20 05/06/20 06:59 14:59 22:59 Intake Total 433.125 / 1422.375 Output Total 1650 / 4750 800 / 800 Balance -1216.875 / -3327.625 -800 / -800 Weight last 48 hrs Weight 362 lb 1 oz Weight 370 lb 4 oz Weight 370 lb 4 oz Physical Exam Narrative: EXAM NARRATIVE: General: lying in bed, , intubated. HEENT:NCAT, PERRLA, EOMI Neck: Supple Lungs: coarse rhonci bilateral bases Heart: s1/s2, RRR Abd: Obese, pitting edema on abdominal wall improving, NT, Extremities: Bilateral lower extremity edema, improving redness PBX SUPERVISOR: sedated and limited PBX SUPERVISOR exam possible. opening eyes and following commands SKIN: Bilateral legs erythema positive Urinary Catheter Management^: [place]: Cath Placed During This Visit: yes Reason for Continuing Indwelling Catheter: Accurate Measurement of Urinary Output in Critically Ill Patients Urinary Catheter Date of Insertion: 04/27/20 Urinary Catheter Time of Insertion: 22:16 Data : 05/06/20 04:27 05/06/20 04:27 Micro: Microbiology 05/06/20 10:20 Gram Stain - Final Sputum - Expectorated Sputum 05/06/20 09:19 Blood Culture - Preliminary Blood SPECIMEN COLLECTED 05/06/20 09:10 Blood Culture - Preliminary Blood SPECIMEN COLLECTED A&P Assessment and plan (1) NSTEMI (non-ST elevated myocardial infarction): Status: Acute (2) Sepsis: Status: Acute Qualifiers: Sepsis type: sepsis due to unspecified organism Sepsis acute organ dysfunction status: with acute organ dysfunction Severe sepsis acute organ dysfunction type: acute respiratory failure Acute respiratory failure type: with hypercapnia Severe sepsis shock status: without septic shock Qualified Code(s): A41.9 - Sepsis, unspecified organism; R65.20 - Severe sepsis without septic shock; J96.02 - Acute respiratory failure with hypercapnia (3) Obesity hypoventilation syndrome: Status: Acute (4) Acute respiratory failure with hypoxia and hypercapnia: Status: Acute (5) New onset of congestive heart failure: Status: Acute (6) Cellulitis: Status: Acute Qualifiers: Site of cellulitis: extremity Site of cellulitis of extremity: lower extremity Laterality: right Qualified Code(s): L03.115 - Cellulitis of right lower limb (7) MARTINEZ (obstructive sleep apnea): Status: Acute (8) Morbid obesity with alveolar hypoventilation: Status: Acute 34-year-old female Ms. Kari East admitted for acute hypoxic hypercapnic respiratory failure likely secondary to obesity hypoventilation syndrome and acute heart failure secondary to ongoing NSTEMI. #Acute hypoxic hypercapnic respiratory failure likely secondary to obesity hypoventilation syndrome-possible acute CHF secondary to demand ischemia #New fevers spikes and hypoxia likely due to pneumonia #OHS- MARTINEZ in morbidly obese patient -Latest ABG on 40% FiO2/10 PEEP/16 pressure support and pressure support ventilation: 7.4 8/56/53/42 -Try to come down on PEEP and pressure support and see if patient tolerates to maintain oxygenation and saturation and Continue weaning trials - Patient clinically still looks volume overloaded-but improved significantly -continue diuresis - On Bumex 2 mg every 8 daily; monitor input output and daily weight; can give 1 to 2 doses dimox 500mg daily -Echo: mixed systolic and diastolic heart failure -Currently on Lovenox prophylactic dose and cardiology to do LHC and RHC before discharge - CTPA, negative -New fever spikes-send UA, TTA, blood cultures - discontinue Zosyn start vancomycin and Ancef but for bilateral lower leg cellulitis -Monitor electrolytes and supplement accordingly while on diuretics -She seems like close to getting extubated in 1 to 2 days-if fails then would plan for tracheostomy next week Overall she will be very challenging to extubate because of significant CHF and morbid obesity. Continue to diurese well to keep her net negative while monitoring electrolytes and evaluating every day with spontaneous breathing trials for possible extubation. Rest of the management as per primary ICU team Case discussed with Dr. Pena - hospitalist on the case Attestations Medical Necessity Statement*: Acute hypoxic/hypercarbic respiratory failure likely secondary to fluid overload in context of reduced heart function due to demand ischemia versus NSTEMI still requiring intubation Time Spent in Patient Care: 16 - 35 minutes (>than 50% of time spent in counselling and/or direct pt care on unit). Critical Care Time: Critical Care Time (min): 33 Coding Level of Care Code Established Pt Acute International Relations Professor for g Fwd Patient Type Established Diagnoses NSTEMI (non-ST elevated myocardial infarction) I21.4 Sepsis A41.9; R65.20; J96.02 Sepsis type: sepsis due to unspecified organism Sepsis acute organ dysfunction status: with acute organ dysfunction Severe sepsis acute organ dysfunction type: acute respiratory failure Acute respiratory failure type: with hypercapnia Severe sepsis shock status: without septic shock Obesity hypoventilation syndrome E66.2 Acute respiratory failure with hypoxia and hypercapnia J96.01; J96.02 New onset of congestive heart failure I50.9 Cellulitis L03.115 Site of cellulitis: extremity Site of cellulitis of extremity: lower extremity Laterality: right MARTINEZ (obstructive sleep apnea) G47.33 Morbid obesity with alveolar hypoventilation E66.2 Time Spent (min) 33
[2020-05-06] MEDS: enoxaparin 40 mg/0.4 mL Syringe SUBCUT (17:49)
[2020-05-06 18:44] LABS: Glucose Point of Care 119 mg/dL (70-110)
[2020-05-06 19:48] LABS: Glucose Point of Care 122 mg/dL (70-110)
[2020-05-06 21:50] LABS: Glucose Point of Care 116 mg/dL (70-110)
[2020-05-07] VITALS (37 sets, daily range): BP systolic 106–142; BP diastolic 62–94; PULSE 84–105; RESP 10–30; TEMP 36.6–36.8; O2SAT 84–95
[2020-05-07] MEDS: bumetanide 0.25 mg/mL SDV 10 mL 2 MG IV ×3 (01:41→17:52)
[2020-05-07] MEDS: ipratropium-albuterol 3 mL Neb INHALATION ×4 (02:12→20:37)
[2020-05-07 04:13] LABS: Basophils % 0.4 %; Eosinophils # 0.3 10^3/uL (0.0-0.8); Eosinophils % 3.2 %; Hematocrit 44.2 % (37.0-47.0); Hemoglobin 13.1 g/dL (11.5-15.3); Lymphocytes # 0.9 10^3/uL (0.8-4.8); Lymphocytes % 9.6 %; Mean Corpuscular HGB Conc 29.6 g/dL (30.0-36.0); Mean Corpuscular Hemoglobin 28.4 pg (28.0-34.0); Mean Corpuscular Volume 95.9 fL (81-99); Monocytes # 0.8 10^3/uL (0.2-0.9); Monocytes % 8.7 %; Neutrophils # 6.98 10^3/uL (1.8-7.7); Neutrophils % 77.7 %; Nucleated Red Blood Cells % 0 %; Platelet Count 156 10^3/cmm (130-400); Red Blood Count 4.61 10^6/uL (4.1-5.3); Red Cell Distribution Width 17.2 % (12.1-15.1)
[2020-05-07 04:46] LABS: Alanine Aminotransferase 19 U/L (0-33); Albumin Level 2.8 g/dL (3.5-5.2); Alkaline Phosphatase 104 IU/L (35-105); Anion Gap 9.7 (5-19); Aspartate Amino Transferase 24 U/L (0-32); Blood Urea Nitrogen 22 mg/dL (6-20); Calcium 8.8 mg/dL (8.5-10.5); Chloride 98 mmol/L (98-107); Globulin 4.6 g/dL (1.3-4.6); Glomerular Filtration Rate 113.1 mL/min (90-130); Glucose 123 mg/dL (65-115); Osmolality Calculated 298 mOsm/kg (285-295); Potassium 3.7 mmol/L (3.5-5.1); Sodium 145 mmol/L (136-145); Total Bilirubin 1.3 mg/dL (0.15-1.2); Total Protein 7.4 g/dL (6.6-8.7)
[2020-05-07 04:59] LABS: ABG PH Result 7.45 (7.35-7.45); Arterial Blood Gas Hematocrit 41.8 % (37-47); Base Excess ABG 15.6 mmol/L (-2.0-2.0); Blood Gas Allen Test Pos; Blood Gas Sample Site Radial, right; Blood Gas Sample Type Arterial; Blood Gas Tidal Volume 0.45; HCO3 ABG 42.7 mmol/L (22-26); Oxygen Device VENT; PO2 ABG 71.3 mmHg (80.0-100.0)
[2020-05-07 04:59] LABS: Carbon Dioxide 41 mmol/L (22-29)
[2020-05-07 05:27] LABS: ABG PCO2 61.4 mmHg (35-45)
[2020-05-07 07:44] LABS: Glucose Point of Care 131 mg/dL (70-110)
[2020-05-07] MEDS: BuSPIRONE 5 mg Tablet 7.5 MG PO ×2 (08:48→17:53)
[2020-05-07] MEDS: lactulose oral liq 20 gm/30 mL UDC 15 GM PO ×2 (08:48→17:54)
[2020-05-07] MEDS: escitalopram 10 mg Tablet PO (08:48)
[2020-05-07] MEDS: clopidogrel 75 mg Tablet NG-TUBE (08:48)
[2020-05-07] MEDS: metoprolol tartrate 25 mg Tablet 12.5 MG OG-TUBE ×2 (08:49→17:53)
[2020-05-07] MEDS: lisinopril 5 mg Tablet 2.5 MG PO (08:49)
[2020-05-07] MEDS: atorvastatin 40 mg Tablet 80 MG NG-TUBE (08:49)
[2020-05-07] MEDS: pantoprazole 40 mg SDV IVP ×2 (09:32→21:31)
--- NOTE | 2020-05-07 10:18 | XR_ITS ---
WS: [id number] Portable AP upright chest, 05/07/2020 Clinical Data: cough Comparison: Portable chest, 05/06/2020 Findings: The heart remains enlarged and the patient has a poor inspiratory effort. The bilateral opa cities have cleared and this may represent improvement in pulmonary vascular congestion. The endotrac heal tube and nasogastric tube remain in good position. There are monitor leads on the chest wall. XR/XR chest 1V portable [id number] Impression: 1. Clearing of bilateral pulmonary opacities which could represent improvement in pulmonary vascular congestion. 2. No change in endotracheal tube and nasogastric tube. 3. Cardiomegaly.
--- NOTE | 2020-05-07 10:20 | P.PN_ITS ---
Subjective Subjective: Interval history: She denies pain. Is asking about extubation. We discussed regarding the barriers to extubation. Discussed again regarding so far her progress with regards to diuresis and weight loss. Continue treatment of possible pneumonia, as well as additional recommendations by pulmonology. Discussed again potential neck steps with continuation of treatment, cons ideration of extubation, consideration possibly of tracheostomy. Vitals/I&O/Wt Last Vital Signs Temp 99.0 F 05/06/20 19:46 Pulse 99 05/07/20 09:05 Resp 17 05/07/20 10:06 BP 106/66 05/07/20 08:00 Pulse Ox 93 05/07/20 09:05 05/06/20 05/07/20 05/07/20 22:59 06:59 14:59 Intake Total 1108 / 1408 325 / 1733 Output Total 2450 / 3250 1350 / 4600 Balance -1342 / -1842 -1025 / -2867 Weight last 48 hrs Weight 162.471 kg Weight 164.229 kg Physical Exam Const: COMMON NORMALS: no acute distress and alert NUTRITIONAL APPEARANCE: obese HENMT: COMMON NORMALS: oropharynx normal Neck/C-Spine: OTHER: Thick neck, unable to assess for JVD Resp: COMMON NORMALS: normal respiratory effort OTHER: Difficult to examine due to body habitus, however, does appear to have decent air entry, I do not detect adventitious sounds today. Cardio: COMMON NORMALS: regular rhythm, S1 normal heart sound present, S2 normal heart sound present and No murmurs present (Cardio) RHYTHM: regular rhythm HEART SOUNDS: S1 normal heart sound present and S2 normal heart sound present GI: COMMON NORMALS: Normal to inspection, nondistended, normoactive bowel sounds present, Soft to palpation and non-tender PALPATION: Yes Soft to palpation OTHER: Edema gradually decreasing, with pitting edema still on upper thighs, abdomen still present. Shrinking. No weeping. Extremity: COMMON NORMALS: no joint enlargement GENERAL: Yes edema (3+ peripheral upper and lower edema) Neuro: COMMON NORMALS: moves all extremities SENSORIUM/ORIENTATION: Yes alert Skin: COMMON NORMALS: no rashes or lesions noted GENERAL SKIN EXAM: no rashes or lesions noted OTHER: Bilateral LE cellulitis below knees improving. Interspersed areas of scabbing scattered from healing blisters on legs, chest. Do not see mucosal lesions. Do not see fresh lesions. Urinary Catheter Management^: [place]: Cath Placed During This Visit: yes Reason for Continuing Indwelling Catheter: Accurate Measurement of Urinary Output in Critically Ill Patients Urinary Catheter Date of Insertion: 04/27/20 Urinary Catheter Time of Insertion: 22:16 Data : 05/07/20 03:38 05/07/20 03:38 Micro: Microbiology 05/06/20 09:10 Blood Culture - Preliminary Blood NEGATIVE TO DATE 05/06/20 09:19 Blood Culture - Preliminary Blood NEGATIVE TO DATE 05/06/20 08:30 Urine Culture - Preliminary Urine,Clean Catch Yeast species 05/06/20 10:20 Gram Stain - Final Sputum - Expectorated Sputum A&P Assessment and plan (1) Acute respiratory failure with hypoxia and hypercapnia: Fever resolved. No further air leak noted so far. Continue diuresis. She is now below her admission weight at 162 kg. Continue weaning ventilator support per pulmonology recommendations. Continue antibiotics as changed on 05/06 to cefepime and vancomycin. Did have persistent congestive changes on chest x-ray. Possible pneumonia. Quite a bit of anasarca, although gradually decreasing. Weight appears to be gradually decreasing. Appreciate additional windows systems architect recommendations. Continue daily weaning attempts. If unable to extubate by the end of the week may require tracheostomy if unable to extubate by Sunday per pulmonology. She likely has obesity hypoventilation. Cannot rule out COPD, pulmonary hypertension, severe sleep apnea, possible contributing pneumonia. No pulmonary emboli on CTA. COVID testing negative Continue to attempt active exercises as tolerated/safe. Status: Acute (2) New onset of congestive heart failure: Down to 162 kg. Continue IV diuresis. Echocardiogram is complete and poor quality and EF appears approximately 50% Consistent with acute diastolic heart failure. Will need additional evaluation by left and right heart cath prior to discharge. Status: Acute (3) Obesity hypoventilation syndrome: Will likely need BiPAP at night when discharged from the hospital Status: Acute (4) Sepsis: Sepsis appear resolved. Concern for underlying infections as below. Concern regarding possibility of pneumonia. Zosyn was stopped and was started on cefepime and vancomycin on 05/06. Cellulitis of lower extremities appears to be gradually improving. Venous duplex was negative for DVT On the legs erythema appears to be perhaps slightly better. Not sure that she will require debridement. We will continue to reevaluate. Continue Zosyn currently for possible PNA, cellulitis. MRSA PCR negative. Erythema of legs continued to improve and again this appears to have been secondary to severe edema and bilateral venous stasis. Still present. Mild erythema unchanged on lower abdomen. No fresh areas of sloughing of supericial dermis. Sputum and blood cultures negative. Status: Acute Qualifiers: Sepsis type: sepsis due to unspecified organism Sepsis acute organ dysfunction status: with acute organ dysfunction Severe sepsis acute organ dysfunction type: acute respiratory failure Acute respiratory failure type: with hypercapnia Severe sepsis shock status: without septic shock Qualified Code(s): A41.9 - Sepsis, unspecified organism; R65.20 - Severe sepsis without septic shock; J96.02 - Acute respiratory failure with hypercapnia (5) NSTEMI (non-ST elevated myocardial infarction): On statin, Plavix. ASA had to be DC'd. Continue beta-atli low dose. She was on this at home and I want to prevent any beta-tali withdrawal. Cardiology input appreciated. She has having some spontaneous bleeding and heparin was discontinued last night. Aspirin has been discontinued. Status: Acute Additional A&P Information Tobacco dependency History of hypertension. Continue low-dose lisinopril Depression/anxiety. Continue home medications. Full code Secondary to spontaneous bleeding heparin drip has been discontinued. Lovenox DVT prophylaxis dosing. Protonix for GI prophylaxis. Nutrition. Tube feeding. Nutrition has other recommendations for [facility] at higher rate and water boluses but as we are trying to reduce intake currently with diuresis I have held off on these changes. Attestations Medical Necessity Statement*: Continue admission for management of respiratory failure, weaning mechanical ventilatory support, treatment of CHF, anasarca, with multiple underlying respiratory conditions contributing to difficulty of extubation. 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
[2020-05-07] MEDS: cefepime 2,000 MG in sodium chloride 0.9% (plus) 50 ML 100 MG IV (10:26)
--- NOTE | 2020-05-07 10:26 | P.PN_ITS ---
Subjective Subjective: Interval history: Pt. tolerated Spontaneous with high PEEP and PS for quite long time while sitting up in bed yesterday but towards evening she was apneic and has to put her back on VC. overall clinically improving. Diuresing well lost about 30 LB's since admission. ABG today morning ph 7.45/61/71/42 on 45% FiO2 10 PEEP/pressure support 16 We will continue physical therapy and weaning trial today and try to come down on pressure support and PEEP and see if we can extubate tomorrow perioperative nurse. No more fever spikes since yesterday and WBC 9000. Medications: Reviewed: Yes Vitals/I&O/Wt Last Vital Signs Temp 99.0 F 05/06/20 19:46 Pulse 89 05/07/20 10:00 Resp 17 05/07/20 10:06 BP 126/68 05/07/20 10:00 Pulse Ox 92 05/07/20 10:00 05/06/20 05/07/20 05/07/20 22:59 06:59 14:59 Intake Total 1108 / 1408 325 / 1733 Output Total 2450 / 3250 1350 / 4600 Balance -1342 / -1842 -1025 / -2867 Weight last 48 hrs Weight 358 lb 3 oz Weight 362 lb 1 oz Physical Exam Narrative: EXAM NARRATIVE: General: lying in bed, , intubated. HEENT:NCAT, PERRLA, EOMI Neck: Supple Lungs: coarse rhonci bilateral bases Heart: s1/s2, RRR Abd: Obese, pitting edema on abdominal wall improving, NT, Extremities: Bilateral lower extremity edema, improving redness STRIPPER BLACK AND WHITE: sedated and limited STRIPPER BLACK AND WHITE exam possible. opening eyes and following commands SKIN: Bilateral legs erythema positive Urinary Catheter Management^: [place]: Cath Placed During This Visit: yes Reason for Continuing Indwelling Catheter: Accurate Measurement of Urinary Output in Critically Ill Patients Urinary Catheter Date of Insertion: 04/27/20 Urinary Catheter Time of Insertion: 22:16 Data : 05/07/20 03:38 05/07/20 03:38 Micro: Microbiology 05/06/20 09:10 Blood Culture - Preliminary Blood NEGATIVE TO DATE 05/06/20 09:19 Blood Culture - Preliminary Blood NEGATIVE TO DATE 05/06/20 08:30 Urine Culture - Preliminary Urine,Clean Catch Yeast species 08/27/20 10:20 Gram Stain - Final Sputum - Expectorated Sputum A&P Assessment and plan (1) NSTEMI (non-ST elevated myocardial infarction): Status: Acute (2) Sepsis: Status: Acute Qualifiers: Sepsis type: sepsis due to unspecified organism Sepsis acute organ dysfunction status: with acute organ dysfunction Severe sepsis acute organ dysfunction type: acute respiratory failure Acute respiratory failure type: with hypercapnia Severe sepsis shock status: without septic shock Qualified Code(s): A41.9 - Sepsis, unspecified organism; R65.20 - Severe sepsis without septic shock; J96.02 - Acute respiratory failure with hypercapnia (3) Obesity hypoventilation syndrome: Status: Acute (4) Acute respiratory failure with hypoxia and hypercapnia: Status: Acute (5) New onset of congestive heart failure: Status: Acute (6) Cellulitis: Status: Acute Qualifiers: Site of cellulitis: extremity Site of cellulitis of extremity: lower extremity Laterality: right Qualified Code(s): L03.115 - Cellulitis of right lower limb (7) MARTINEZ (obstructive sleep apnea): Status: Acute (8) Morbid obesity with alveolar hypoventilation: Status: Acute 34-year-old female Ms. Kari East admitted for acute hypoxic hypercapnic respiratory failure likely secondary to obesity hypoventilation syndrome and acute heart failure secondary to ongoing NSTEMI. #Acute hypoxic hypercapnic respiratory failure likely secondary to obesity hypoventilation syndrome-possible acute CHF secondary to demand ischemia #New fevers spikes and hypoxia likely due to pneumonia #OHS- MARTINEZ in morbidly obese patient -Latest ABG on 40% FiO2/10 PEEP/16 pressure support and pressure support ventilation: 7.4 //42 -We will decrease pressure support and PEEP and and put her on spontaneous and s ee how she does -Patient clinically still looks volume overloaded-but improved significantly -continue diuresis - On Bumex 2 mg every 8 daily; monitor input output and daily weight; can give 1 to 2 doses dimox 500mg daily -Echo: mixed systolic and diastolic heart failure -Currently on Lovenox prophylactic dose and cardiology to do LHC and RHC before discharge - CTPA, negative -No more fever spikes-UA growing yeast, TTE negative, pending, blood cultures - vancomycin and cefepime -Monitor electrolytes and supplement accordingly while on diuretics -She seems like close to getting extubated in 1 to 2 days-if fails then would plan for tracheostomy next week Overall she will be very challenging to extubate because of significant CHF and morbid obesity. Continue to diurese well to keep her net negative while monitoring electrolytes and evaluating every day with spontaneous breathing trials for possible extubation. Rest of the management as per primary ICU team Case discussed with Dr. Pena - hospitalist on the case Attestations Medical Necessity Statement*: Acute hypoxic/hypercapnic respiratory failure secondary still requiring mechanical ventilation Time Spent in Patient Care: 16 - 35 minutes (>than 50% of time spent in counselling and/or direct pt care on unit) . 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 [facility] Patient Type Established Diagnoses NSTEMI (non-ST elevated myocardial infarction) I21.4 Sepsis A41.9; R65.20; J96.02 Sepsis type: sepsis due to unspecified organism Sepsis acute organ dysfunction status: with acute organ dysfunction Severe sepsis acute organ dysfunction type: acute respiratory failure Acute respiratory failure type: with hypercapnia Severe sepsis shock status: without septic shock Obesity hypoventilation syndrome E66.2 Acute respiratory failure with hypoxia and hypercapnia J96.01; J96.02 New onset of congestive heart failure I50.9 Cellulitis L03.115 Site of cellulitis: extremity Site of cellulitis of extremity: lower extremity Laterality: right MARTINEZ (obstructive sleep apnea) G47.33 Morbid obesity with alveolar hypoventilation E66.2 Time Spent (min) 33
--- NOTE | 2020-05-07 10:39 | PC.NURSE ---
cxr done this morning and weaned vent to cpap alert at this time tube feeding restarted was attempting to wean
[2020-05-07 11:28] LABS: Vancomycin Trough 21.7 ug/mL (10-15)
[2020-05-07 12:23] LABS: Glucose Point of Care 113 mg/dL (70-110)
--- NOTE | 2020-05-07 15:12 | PM.PN ---
Subjective Subjective: Interval history: Remained stable continues to diurese. Patient had -2 L balance Medications: Reviewed: Yes Vitals/I&O/Wt Last Vital Signs Temp 99.0 F 05/06/20 19:46 Pulse 105 H 05/07/20 14:15 Resp 17 05/07/20 14:17 BP 142/90 05/07/20 14:00 Pulse Ox 92 05/07/20 14:15 05/07/20 05/07/20 05/07/20 06:59 14:59 22:59 Intake Total 375 / 1783 1147 / 1147 Output Total 1350 / 4600 1350 / 1350 Balance -975 / -2817 -203 / -203 Weight last 48 hrs Weight 358 lb 3 oz Weight 362 lb 1 oz Physical Exam Narrative: EXAM NARRATIVE: GENERAL: Patient is intubated but oriented follows the command. Laying in the bed ready for physical therapy NECK: No jugular vein distension. HEENT: No cyanosis. No icterus. No pallor. HEART: Regular S1 and S2. No murmur, rub or gallop. LUNGS: No crackles bilaterally. ABDOMEN: Soft, nontender and nondistended. Positive bowel sounds. No guarding, rebound or tenderness. CENTRAL NERVOUS SYSTEM: Grossly nonfocal. EXTREMITIES: Lower extremities with 1+ edema bilaterally. Cellulitis has improved Urinary Catheter Management^: [place]: Cath Placed During This Visit: yes Reason for Continuing Indwelling Catheter: Accurate Measurement of Urinary Output in Critically Ill Patients Urinary Catheter Date of Insertion: 04/27/20 Urinary Catheter Time of Insertion: 22:16 Data : 05/07/20 03:38 05/07/20 03:38 Micro: Microbiology 05/06/20 10:20 Gram Stain - Final Sputum - Expectorated Sputum Sputum Culture - Preliminary Staphylococcus aureus 05/06/20 09:10 Blood Culture - Preliminary Blood NEGATIVE TO DATE 05/06/20 09:19 Blood Culture - Preliminary Blood NEGATIVE TO DATE 05/06/20 08:30 Urine Culture - Preliminary Urine,Clean Catch Yeast species A&P Assessment and plan (1) NSTEMI (non-ST elevated myocardial infarction): Stable, continue medical management Status: Acute (2) New onset of congestive heart failure: CHF improving. Getting towards euvolemic continue diuresis Status: Acute (3) Sepsis: As per medicine Status: Acute Qualifiers: Sepsis type: sepsis due to unspecified organism Sepsis acute organ dysfunction status: with acute organ dysfunction Severe sepsis acute organ dysfunction type: acute respiratory failure Acute respiratory failure type: with hypercapnia Severe sepsis shock status: without septic shock Qualified Code(s): A41.9 - Sepsis, unspecified organism; R65.20 - Severe sepsis without septic shock; J96.02 - Acute respiratory failure with hypercapnia (4) Wound, open, lower limb with complication: Continue antibiotics as per medicine Status: Acute (5) Respiratory failure with hypercapnia: As per pulmonary Status: Acute Qualifiers: Chronicity: acute Qualified Code(s): J96.02 - Acute respiratory failure with hypercapnia Attestations Medical Necessity Statement*: Require continuation hospitalization for above defined care. 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 [employer] Patient Type Established History Expanded Problem Focused Exam Expanded Problem Focused Medical Decision Making Moderate Complexity Diagnoses NSTEMI (non-ST elevated myocardial infarction) I21.4 New onset of congestive heart failure I50.9 Sepsis A41.9; R65.20; J96.02 Sepsis type: sepsis due to unspecified organism Sepsis acute organ dysfunction status: with acute organ dysfunction Severe sepsis acute organ dysfunction type: acute respiratory failure Acute respiratory failure type: with hypercapnia Severe sepsis shock status: without septic shock Wound, open, lower limb with complication S81.809A Respiratory failure with hypercapnia J96.02 Chronicity: acute
[2020-05-07 16:48] LABS: Glucose Point of Care 119 mg/dL (70-110)
[2020-05-07] MEDS: enoxaparin 40 mg/0.4 mL Syringe SUBCUT (17:54)
[2020-05-07 20:46] LABS: Glucose Point of Care 113 mg/dL (70-110)
[2020-05-08] VITALS (38 sets, daily range): BP systolic 106–178; BP diastolic 59–143; PULSE 86–110; RESP 6–37; TEMP 36.6–37.1; O2SAT 90–97
[2020-05-08] MEDS: cefepime 2,000 MG in sodium chloride 0.9% (plus) 50 ML 100 MG IV ×3 (00:13→23:55)
[2020-05-08] MEDS: bumetanide 0.25 mg/mL SDV 10 mL 2 MG IV ×3 (02:12→17:29)
[2020-05-08] MEDS: ipratropium-albuterol 3 mL Neb INHALATION ×4 (02:48→20:36)
[2020-05-08 03:52] LABS: Basophils % 0.4 %; Eosinophils # 0.3 10^3/uL (0.0-0.8); Eosinophils % 3.6 %; Hematocrit 45.3 % (37.0-47.0); Hemoglobin 13.3 g/dL (11.5-15.3); Lymphocytes % 10.7 %; Mean Corpuscular HGB Conc 29.4 g/dL (30.0-36.0); Mean Corpuscular Volume 95.4 fL (81-99); Mean Platelet Volume 11.1 fL (7.4-10.4); Monocytes # 0.8 10^3/uL (0.2-0.9); Monocytes % 8.1 %; Neutrophils # 7.18 10^3/uL (1.8-7.7); Neutrophils % 76.9 %; Nucleated Red Blood Cells % 0 %; Platelet Count 151 10^3/cmm (130-400); Red Blood Count 4.75 10^6/uL (4.1-5.3); Red Cell Distribution Width 16.9 % (12.1-15.1); White Blood Count 9.4 10^3/uL (4.0-10.0)
[2020-05-08 04:19] LABS: Alanine Aminotransferase 20 U/L (0-33); Albumin Level 2.6 g/dL (3.5-5.2); Alkaline Phosphatase 112 IU/L (35-105); Anion Gap 8.4 (5-19); Aspartate Amino Transferase 25 U/L (0-32); Blood Urea Nitrogen 20 mg/dL (6-20); Calcium 9.2 mg/dL (8.5-10.5); Carbon Dioxide 40 mmol/L (22-29); Chloride 97 mmol/L (98-107); Globulin 4.8 g/dL (1.3-4.6); Glomerular Filtration Rate 113.1 mL/min (90-130); Glucose 126 mg/dL (65-115); Osmolality Calculated 292 mOsm/kg (285-295); Potassium 3.4 mmol/L (3.5-5.1); Sodium 142 mmol/L (136-145); Total Bilirubin 1.2 mg/dL (0.15-1.2); Total Protein 7.4 g/dL (6.6-8.7)
[2020-05-08 04:41] LABS: ABG PH Result 7.47 (7.35-7.45); Arterial Blood Gas Hematocrit 42.2 % (37-47); Base Excess ABG 16.7 mmol/L (-2.0-2.0); Blood Gas Sample Site Brachial, right; Blood Gas Sample Type Arterial; Carboxyhemoglobin 1.8 %THgb (0.4-20.1); HCO3 ABG 43.6 mmol/L (22-26); HGB O2 Sat 88.7 % (95-100); Ionized Calcium Level - ABG 1.2 mmol/L (1.1-1.4); Methemoglobin 0.6 % (0.4-1.5); Oxygen Device VENT; Oxygen Saturation ABG 90.8; PO2 ABG 57.7 mmHg (80.0-100.0); Potassium Level - ABG 3.4 mmol/L (3.5-5.0); Total Hemoglobin 13.8 g/dL (12-16)
[2020-05-08 04:42] LABS: ABG PCO2 60.2 mmHg (35-45)
[2020-05-08] MEDS: potassium chloride premix 40 MEQ/100 ML PREMIX 25 MEQ IV (06:00)
--- NOTE | 2020-05-08 06:00 | XRR_ITS ---
PROCEDURE INFORMATION: Exam: XR Chest, 1 View Exam date and time: 05/08/2020 6:04 AM Age: 35 years old Clinical indication: Other: Hypoxia TECHNIQUE: Imaging protocol: XR of the chest Views: 1 view. COMPARISON: CR XR chest 1V portable [id number] 05/07/2020 10:26 AM FINDINGS: Tubes, catheters and devices: PICC line from the right with the tip projecting over the right atrium. The endotracheal tube is above the level of the enrique. nasogastric tube extends below the diaphragm although the location of the tip not identified as it is outside of the [id number]. Lungs: Mild airspace consolidation both lung bases left greater than right. Probable subpulmonic effusions. Pleural space: See Lungs finding. Heart/Mediastinum: Unremarkable. No cardiomegaly. Bones/joints: Unremarkable. XR/XR chest 1V portable [id number] IMPRESSION: Mild airspace consolidation both lung bases left greater than right. Probable subpulmonic effusions.
[2020-05-08 07:35] LABS: Glucose Point of Care 118 mg/dL (70-110)
--- NOTE | 2020-05-08 08:01 | PC.NURSE ---
awake repositioned and oral care done oriented no restraints on at this time texting on cell phone to family
--- NOTE | 2020-05-08 08:53 | PM.PN ---
Subjective Subjective: Interval history: Denies any change today. She is not in pain or discomfort. Worked with PT yesterday, got very tired when sat at the edge of the bed. Vitals/I&O/Wt Last Vital Signs Temp 98.8 F 05/08/20 07:30 Pulse 108 H 05/08/20 08:30 Resp 32 H 05/08/20 08:20 BP 132/87 05/08/20 08:30 Pulse Ox 91 05/08/20 08:30 05/07/20 05/08/20 05/08/20 22:59 06:59 14:59 Intake Total 350 / 400 Output Total 1900 / 1900 1500 / 3400 Balance -1900 / -1850 -1150 / -3000 Weight last 48 hrs Weight 161.932 kg Weight 162.471 kg Physical Exam Const: COMMON NORMALS: no acute distress and alert NUTRITIONAL APPEARANCE: obese HENMT: COMMON NORMALS: oropharynx normal Neck/C-Spine: OTHER: Thick neck, unable to assess for JVD Resp: COMMON NORMALS: normal respiratory effort OTHER: Difficult to examine due to body habitus, however, does appear to have decent air entry, I do not detect adventitious sounds today. Cardio: COMMON NORMALS: regular rhythm, S1 normal heart sound present, S2 normal heart sound present and No murmurs present (Cardio) RHYTHM: regular rhythm HEART SOUNDS: S1 normal heart sound present and S2 normal heart sound present GI: COMMON NORMALS: Normal to inspection, nondistended, normoactive bowel sounds present, Soft to palpation and non-tender PALPATION: Yes Soft to palpation OTHER: Edema gradually decreasing, with pitting edema still on upper thighs, abdomen still present. Shrinking. No weeping. Extremity: COMMON NORMALS: no joint enlargement GENERAL: Yes edema (3+ peripheral upper and lower edema) Neuro: COMMON NORMALS: moves all extremities SENSORIUM/ORIENTATION: Yes alert Skin: COMMON NORMALS: no rashes or lesions noted GENERAL SKIN EXAM: no rashes or lesions noted OTHER: Bilateral LE cellulitis below knees improving. Interspersed areas of scabbing scattered from healing blisters on legs, chest. Do not see mucosal lesions. Do not see fresh lesions. Urinary Catheter Management^: [place]: Cath Placed During This Visit: yes Reason for Continuing Indwelling Catheter: Accurate Measurement of Urinary Output in Critically Ill Patients Urinary Catheter Date of Insertion: 04/27/20 Urinary Catheter Time of Insertion: 22:16 Data : 05/08/20 03:13 05/08/20 03:13 Micro: Microbiology 05/06/20 10:20 Gram Stain - Final Sputum - Expectorated Sputum Sputum Culture - Preliminary Staphylococcus aureus 05/06/20 09:10 Blood Culture - Preliminary Blood NEGATIVE TO DATE 05/06/20 09:19 Blood Culture - Preliminary Blood NEGATIVE TO DATE 05/06/20 08:30 Urine Culture - Preliminary Urine,Clean Catch Yeast species A&P Assessment and plan (1) Acute respiratory failure with hypoxia and hypercapnia: Weight continues to decrease. Pressure support down to 8, PEEP down to 8, FiO2 down to 40%. ABG is somewhat hypoxic this morning 7.7. Saturating low 90s. Subjectively is feeling well. Mild airspace consolidation in both lung bases, probable subpulmonic effusions on chest x-ray. Pending pulmonary reassessment for further weaning. Continue diuresis for CHF and fluid overload/anasarca. Continue antibiotics for pneumonia. Continue PT. She got exhausted try to sit at the edge of the bed. Continue daily weaning attempts. If unable to extubate by the end of the week may require tracheostomy if unable to extubate by Sunday per pulmonology. She likely has obesity hypoventilation. Cannot rule out COPD, pulmonary hypertension, severe sleep apnea, possible contributing pneumonia. No pulmonary emboli on CTA. COVID testing negative Status: Acute (2) New onset of congestive heart failure: Down to 161 kg. Continue IV diuresis. Echocardiogram is complete and poor quality and EF appears approximately 50% Consistent with acute diastolic heart failure. Will need additional evaluation by left and right heart cath prior to discharge. Status: Acute (3) Obesity hypoventilation syndrome: Will likely need BiPAP at night when discharged from the hospital Status: Acute (4) Sepsis: Sepsis appear resolved. Concern for underlying infections as below. Concern regarding possibility of pneumonia. Zosyn was stopped and was started on cefepime and vancomycin on 05/06. Cellulitis of lower extremities appears to be gradually improving. Venous duplex was negative for DVT On the legs erythema appears to be somewhat better. Not sure that she will require debridement. We will continue to reevaluate. Continue cefepime, Vanco currently for possible PNA, cellulitis. MRSA PCR negative. Erythema of legs continued to improve and again this appears to have been secondary to severe edema and bilateral venous stasis. Still present. Mild erythema unchanged on lower abdomen. No fresh areas of sloughing of supericial dermis. Sputum and blood cultures negative. Status: Acute Qualifiers: Sepsis type: sepsis due to unspecified organism Sepsis acute organ dysfunction status: with acute organ dysfunction Severe sepsis acute organ dysfunction type: acute respiratory failure Acute respiratory failure type: with hypercapnia Severe sepsis shock status: without septic shock Qualified Code(s): A41.9 - Sepsis, unspecified organism; R65.20 - Severe sepsis without septic shock; J96.02 - Acute respiratory failure with hypercapnia (5) NSTEMI (non-ST elevated myocardial infarction): On statin, Plavix. ASA had to be DC'd. Continue beta-tali low dose. She was on this at home and I want to prevent any beta-tali withdrawal. Cardiology input appreciated. She has having some spontaneous bleeding and heparin was discontinued last night. Aspirin has been discontinued. Status: Acute Additional A&P Information Mild hypokalemia: Replaced. Tobacco dependency History of hypertension. Continue low-dose lisinopril Depression/anxiety. Continue home medications. Full code Secondary to spontaneous bleeding heparin drip has been discontinued. Lovenox DVT prophylaxis dosing. Protonix for GI prophylaxis. Nutrition. Tube feeding. Nutrition has other recommendations for [facility] at higher rate and water boluses but as we are trying to reduce intake currently with diuresis I have held off on these changes. Attestations Medical Necessity Statement*: Continue depression for assessment and management of respiratory failure, weaning of ventilator support, treatment of CHF, pneumonia, with underlying obesity hypoventilation syndrome, morbid obesity, smoking and other comorbidities. Coding Level of Care Code Acute Home Appliance Technician for [facility] Diagnoses Acute respiratory failure with hypoxia and hypercapnia J96.01; J96.02 New onset of congestive heart failure I50.9 Obesity hypoventilation syndrome E66.2 Sepsis A41.9; R65.20; J96.02 Sepsis type: sepsis due to unspecified organism Sepsis acute organ dysfunction status: with acute organ dysfunction Severe sepsis acute organ dysfunction type: acute respiratory failure Acute respiratory failure type: with hypercapnia Severe sepsis shock status: without septic shock NSTEMI (non-ST elevated myocardial infarction) I21.4
[2020-05-08] MEDS: lactulose oral liq 20 gm/30 mL UDC 15 GM PO ×2 (09:28→17:57)
[2020-05-08] MEDS: pantoprazole 40 mg SDV IVP ×2 (09:28→21:12)
[2020-05-08] MEDS: atorvastatin 40 mg Tablet 80 MG NG-TUBE (09:28)
[2020-05-08] MEDS: BuSPIRONE 5 mg Tablet 7.5 MG PO ×2 (09:29→17:28)
[2020-05-08] MEDS: metoprolol tartrate 25 mg Tablet 12.5 MG OG-TUBE (09:29)
[2020-05-08] MEDS: clopidogrel 75 mg Tablet NG-TUBE (09:29)
[2020-05-08] MEDS: lisinopril 5 mg Tablet 2.5 MG PO (09:29)
[2020-05-08] MEDS: escitalopram 10 mg Tablet PO (09:29)
--- NOTE | 2020-05-08 09:45 | PC.NURSE ---
awake on vent responding to staff ect. no distress at this time monitor sr. KLEIN datar here with orders....
--- NOTE | 2020-05-08 09:59 | P.PN_ITS ---
Subjective Subjective: Interval history: Patient tolerated spontaneous all throughout yesterday. Very good mentation and following commands. Excellent diuresis achieved over 1 week and patient is -28 L since admission. No more new fever spikes and no leukocytosis noted. Sputum growing gram-positive cocci and is covered with vancomycin. Appears this is the best chance for patient to get extubated and to be placed on BiPAP. ABG on 40% 7.4 /57/43 Medications: Reviewed: Yes Vitals/I&O/Wt Last Vital Signs Temp 98.8 F 05/08/20 07:30 Pulse 108 H 05/08/20 08:30 Resp 32 H 05/08/20 08:20 BP 132/87 05/08/20 08:30 Pulse Ox 91 05/08/20 08:30 05/07/20 05/08/20 05/08/20 22:59 06:59 14:59 Intake Total 350 / 400 Output Total 1900 / 1900 1500 / 3400 Balance -1900 / -1850 -1150 / -3000 Weight last 48 hrs Weight 357 lb Weight 358 lb 3 oz Physical Exam Narrative: EXAM NARRATIVE: General: lying in bed, , intubated. Following commands HEENT:NCAT, PERRLA, EOMI Neck: Supple Lungs: coarse rhonci bilateral bases Heart: s1/s2, RRR Abd: Obese, pitting edema on abdominal wall improved significantly, NT, Extremities: Bilateral lower extremity edema, improving redness WIRE DRAWING DIE MAKER: Awake opening eyes following commands no gross FND SKIN: Bilateral legs erythema positive Urinary Catheter Management^: [place]: Cath Placed During This Visit: yes Reason for Continuing Indwelling Catheter: Accurate Measurement of Urinary Output in Critically Ill Patients Urinary Catheter Date of Insertion: 04/27/20 Urinary Catheter Time of Insertion: 22:16 Data : 05/08/20 03:13 05/08/20 03:13 Micro: Microbiology 05/06/20 08:30 Urine Culture - Preliminary Urine,Clean Catch Yeast species 05/06/20 10:20 Gram Stain - Final Sputum - Expectorated Sputum Sputum Culture - Preliminary Staphylococcus aureus 05/06/20 09:10 Blood Culture - Preliminary Blood NEGATIVE TO DATE 05/06/20 09:19 Blood Culture - Preliminary Blood NEGATIVE TO DATE A&P Assessment and plan (1) NSTEMI (non-ST elevated myocardial infarction): Status: Acute (2) Sepsis: Status: Acute Qualifiers: Sepsis type: sepsis due to unspecified organism Sepsis acute organ dysfunction status: with acute organ dysfunction Severe sepsis acute organ dysfunction type: acute respiratory failure Acute respiratory failure type: with hypercapnia Severe sepsis shock status: without septic shock Qualified Code(s): A41.9 - Sepsis, unspecified organism; R65.20 - Severe sepsis without septic shock; J96.02 - Acute respiratory failure with hypercapnia (3) Obesity hypoventilation syndrome: Status: Acute (4) Acute respiratory failure with hypoxia and hypercapnia: Status: Acute (5) New onset of congestive heart failure: Status: Acute (6) Cellulitis: Status: Acute Qualifiers: Site of cellulitis: extremity Site of cellulitis of extremity: lower extremity Laterality: right Qualified Code(s): L03.115 - Cellulitis of right lower limb (7) MARTINEZ (obstructive sleep apnea): Status: Acute (8) Morbid obesity with alveolar hypoventilation: Status: Acute 34-year-old female Ms. Kari East admitted for acute hypoxic hypercapnic respiratory failure likely secondary to obesity hypoventilation syndrome and acute heart failure secondary to ongoing NSTEMI. #Acute hypoxic hypercapnic respiratory failure likely secondary to obesity hypoventilation syndrome-possible acute CHF secondary to demand ischemia #New fevers spikes and hypoxia likely due to pneumonia #OHS- MARTINEZ in morbidly obese patient -Latest ABG on 40% FiO2/8 PEEP/pressure support 12 : 7.4 //43 -Breathing trial successful-we will try extubate to BiPAP 01/07 with 40% FiO2 -Patient clinically looks much better -continue diuresis - On Bumex 2 mg every 8 daily; monitor input output and daily weight; can give 1 to 2 doses dimox 500mg daily -Echo: mixed systolic and diastolic heart failure -Currently on Lovenox prophylactic dose and cardiology to do LHC and RHC before discharge - CTPA, negative -No more fever spikes-UA growing yeast, TTA growing gram-positive cocci -Covered with vancomycin and cefepime; dosing adjusted as per pharmacy based on Vanco trough levels -Change [place] -Monitor electrolytes and supplement accordingly while on diuretics Overall she improved significantly clinically and will try extubation today to BiPAP and watch her over the weekend. If she gets reintubated then most likely will get tracheostomy Rest of the management as per primary ICU team Case discussed with Dr. Pena - hospitalist on the case Attestations Medical Necessity Statement*: Acute hypoxic/hypercarbic respiratory failure intubated and still on mechanical ventilator-evaluating for possible extubation today Time Spent in Patient Care: 16 - 35 minutes (>than 50% of time spent in counselling and/or direct pt care on unit) . Coding Level of Care Code Established Pt Acute Education And Outreach Coordinator for g [facility] Patient Type Established Diagnoses NSTEMI (non-ST elevated myocardial infarction) I21.4 Sepsis A41.9; R65.20; J96.02 Sepsis type: sepsis due to unspecified organism Sepsis acute organ dysfunction status: with acute organ dysfunction Severe sepsis acute organ dysfunction type: acute respiratory failure Acute respiratory failure type: with hypercapnia Severe sepsis shock status: without septic shock Obesity hypoventilation syndrome E66.2 Acute respiratory failure with hypoxia and hypercapnia J96.01; J96.02 New onset of congestive heart failure I50.9 Cellulitis L03.115 Site of cellulitis: extremity Site of cellulitis of extremity: lower extremity Laterality: right MARTINEZ (obstructive sleep apnea) G47.33 Morbid obesity with alveolar hypoventilation E66.2 Time Spent (min) 33
--- NOTE | 2020-05-08 10:50 | PC.RESP ---
extubated pt extubated and placed on bipap
--- NOTE | 2020-05-08 11:11 | PC.NURSE ---
Patient was extubated around 1030 by respiratory, with charge nurse, LAUREN, assisting. Patient tolerated extubation well. Oral care performed on patient at 1100; mouth swabs done and ice chips given, with patient tolerating well. Patient resting in bed with cellphone in hand.
[2020-05-08 11:13] LABS: Glucose Point of Care 108 mg/dL (70-110)
--- NOTE | 2020-05-08 11:34 | P.PN_ITS ---
Subjective Subjective: Interval history: Cardiology coverage This 32-year-old white female with history of pickwickian syndrome, is admitted to hospital with features of acute respiratory failure. She was found to have elevated troponin T, BNP and a slightly reduced LV ejection fraction by echocardiogram. She was intubated for the last 10 days or so. Today she is extubated. She is currently on 40% oxygen by facemask. She is saturating fairly well. Vital signs are remaining stable. Currently afebrile. She was thought to have elevated troponin T from type II myocardial infarction. Most likely she had a diastolic heart failure. Respiratory status is improving. Medications: Reviewed: Yes Medication Review Details: Current Medications Acetaminophen (Tylenol) 325 mg PO Q4H PRN PRN Reason: MILD PAIN OR INCREASE TEMP Albuterol/Ipratropium (Duoneb) 3 ml INHALATION Q6H.RESPIRATORY [facility] Last Admin: 05/08/20 08:18 Dose: 3 ml Documented by: Atorvastatin Calcium (Lipitor) 80 mg NG-TUBE DAILY JOSE LUIS Last Admin: 05/08/20 09:28 Dose: 80 mg Documented by: Bumetanide (Bumex) 2 mg IV Q8H JOSE LUIS Last Admin: 05/08/20 09:28 Dose: 2 mg Documented by: Buspirone HCl (Buspar) 7.5 mg PO BID JOSE LUIS Last Admin: 05/08/20 09:29 Dose: 7.5 mg Documented by: Clopidogrel Bisulfate (Plavix) 75 mg NG-TUBE DAILY JOSE LUIS Last Admin: 05/08/20 09:29 Dose: 75 mg Documented by: Dextrose (D50w) 25 ml IVP ONCE PRN; Protocol PRN Reason: hypoglycemia protocol Last Admin: 04/29/20 08:18 Dose: 25 ml Documented by: Dextrose (D50w) 50 ml IVP PRN PRN; Protocol PRN Reason: hypoglycemia protocol Last Admin: 04/29/20 11:20 Dose: 50 ml Documented by: Enoxaparin Sodium (Lovenox) 40 mg SUBCUT Q24H [facility] Last Admin: 05/07/20 17:54 Dose: 40 mg Documented by: Escitalopram Oxalate (Lexapro) 10 mg PO DAILY JOSE LUIS Last Admin: 05/08/20 09:29 Dose: 10 mg Documented by: Glucagon (Glucagen) 1 mg IM ONCE PRN; Protocol PRN Reason: Adult Acute Hypoglycemia Prot. Heparin Sodium (Beef Lung) (Heparin Lock Flush) 500 unit IV BID JOSE LUIS Propofol (Diprivan) 1,000 mg in 100 mls @ 0 mls/hr IV .Q0M JOSE LUIS; Protocol Last Titration: 05/05/20 13:25 Dose: 0 mcg/kg/min, 0 mls/hr Documented by: Dextrose (D5w) 500 mls @ 100 mls/hr IV ONCE PRN; Protocol PRN Reason: Adult Acute Hypoglycemia Prot Cefepime HCl 2,000 mg/ Sodium (Chloride) 50 mls @ 100 mls/hr IV Q12H JOSE LUIS; Protocol Last Admin: 05/08/20 10:07 Dose: 100 mls/hr Documented by: Fentanyl 1,000 mcg/ Sodium (Chloride) 100 mls @ 0 mls/hr IV .Q0M JOSE LUIS; Protocol Last Admin: 05/08/20 02:13 Dose: 40 mcg/hr, 4 mls/hr Documented by: Vancomycin HCl 1,500 mg/ (Sodium Chloride) 250 mls @ 166.667 mls/hr IV Q12H JOSE LUIS; Protocol Last Admin: 05/08/20 07:40 Dose: 166.7 mls/hr Documented by: Insulin Aspart (Novolog) 0 unit SUBCUT WM&BEDTIME JOSE LUIS; Protocol Last Admin: 05/08/20 11:24 Dose: Not Given Documented by: Lactulose (Constulose) 15 gm PO BID [facility] Last Admin: 05/08/20 09:28 Dose: 15 gm Documented by: Lisinopril (Prinivil) 2.5 mg PO DAILY [facility] Last Admin: 05/08/20 09:29 Dose: 2.5 mg Documented by: Metoprolol Tartrate (Lopressor) 12.5 mg OG-TUBE BID [facility] Last Admin: 05/08/20 09:29 Dose: 12.5 mg Documented by: Pantoprazole Sodium (Protonix) 40 mg IVP Q12H [facility] Last Admin: 05/08/20 09:28 Dose: 40 mg Documented by: Senna/Docusate Sodium (Senna-S) 1 tab PO DAILY PRN PRN Reason: CONSTIPATION Vitals/I&O/Wt Last Vital Signs Temp 98.8 F 05/08/20 07:30 Pulse 104 H 05/08/20 10:00 Resp 32 H 05/08/20 08:20 BP 151/86 05/08/20 10:00 Pulse Ox 93 05/08/20 10:00 05/07/20 05/08/20 05/08/20 22:59 06:59 14:59 Intake Total 400 / 450 Output Total 1900 / 1900 1500 / 3400 Balance -1900 / -1850 -1100 / -2950 Weight last 48 hrs Weight 357 lb Weight 358 lb 3 oz Physical Exam Narrative: EXAM NARRATIVE: GENERAL: The patient is alert and oriented times three. Not in any acute distress. Mildly tachypneic. Morbidly obese. HEENT: No significant pallor, icterus or lymphadenopathy.Oral cavity: There are no mucous membrane lesions. NECK: Trachea appears to be central. No masses noted. No JVD or thyromegaly a ppreciated. RESPIRATORY: Chest is symmetrical. No intercostals muscle retraction or any accessory muscle activation. There is no chest wall tenderness. Breath sounds are heard bilaterally. No rales or rhonchi heard. No evidence of any consolidation. Breath sounds are diminished in the bases. BREASTS: Deferred. HEART: The heart sounds are distant. No significant murmurs appreciated. ABDOMEN: Abdomen is obese and nontender. Bowel sounds are normally heard. : Deferred. RECTAL: Deferred. LYMPHATIC: No lymphadenopathy noted in the neck or groin. EXTREMITIES: 2+ edema both lower extremities. Features of chronic venous stasis and stasis dermatitis/cellulitis. MUSCULOSKELETAL: No acute joint deformities or swelling SKIN: There are no significant rashes or ecchymosis NEUROPSYCHIATRIC: Patient just got extubated. Somewhat drowsy. Responds to questions appropriately Urinary Catheter Management^: [place]: Cath Placed During This Visit: yes Reason for Continuing Indwelling Catheter: Accurate Measurement of Urinary Output in Critically Ill Patients Urinary Catheter Date of Insertion: 04/27/20 Urinary Catheter Time of Insertion: 22:16 Data : 05/09/20 03:55 05/09/20 03:55 Other Labs: Laboratory Last Values WBC 9.4 10^3/uL (4.0-10.0) 05/08/20 03:13 Corrected WBC Cancelled 05/01/20 03:10 RBC 4.75 10^6/uL (4.1-5.3) 05/08/20 03:13 Hgb 13.3 g/dL (11.5-15.3) 05/08/20 03:13 Hct 45.3 % (37.0-47.0) 05/08/20 03:13 MCV 95.4 fL (81-99) 05/08/20 03:13 MCH 28.0 pg (28.0-34.0) 05/08/20 03:13 MCHC 29.4 g/dL (30.0-36.0) L 05/08/20 03:13 RDW 16.9 % (12.1-15.1) H 05/08/20 03:13 Plt Count 151 10^3/cmm (130-400) 05/08/20 03:13 MPV 11.1 fL (7.4-10.4) H 05/08/20 03:13 Gran % Cancelled 05/01/20 03:10 Neut % (Auto) 76.9 % 05/08/20 03:13 Lymph % (Auto) 10.7 % 05/08/20 03:13 [place] % (Auto) 8.1 % 05/08/20 03:13 Eos % (Auto) 3.6 % 05/08/20 03:13 Baso % (Auto) 0.4 % 05/08/20 03:13 Neut # (Auto) 7.18 10^3/uL (1.8-7.7) 05/08/20 03:13 Lymph # (Auto) 1.0 10^3/uL (0.8-4.8) 05/08/20 03:13 Redwood # (Auto) 0.8 10^3/uL (0.2-0.9) 05/08/20 03:13 Eos # (Auto) 0.3 10^3/uL (0.0-0.8) 05/08/20 03:13 Baso # (Auto) 0.0 10^3/uL (0.0-0.1) 05/08/20 03:13 Absolute Gran (auto) Cancelled 05/01/20 03:10 Nucleated RBC % (auto) 0 % 05/08/20 03:13 Nucleated RBCs # 0.0 /100WBC 05/08/20 03:13 PT 15.70 SECONDS (12.1-14.9) H 04/30/20 00:16 INR 1.21 (0.8-1.2) H 04/30/20 00:16 APTT 35.1 SECONDS (23.9-36.7) 05/02/20 03:20 Fibrinogen 581 mg/dL (174-498) H 04/30/20 00:16 Fibrin Degrad Products Neg, <10 ug/mL (NEG) 04/30/20 00:16 D-Dimer 2.65 ug/mIFEU (0-0.59) H 04/30/20 00:16 Specimen Type Arterial 05/08/20 04:29 Sample Site Brachial, right 05/08/20 04:29 ABG pH 7.47 (7.35-7.45) H 05/08/20 04:29 ABG pCO2 60.2 mmHg (35-45) H* 05/08/20 04:29 ABG pO2 57.7 mmHg (80.0-100.0) L 05/08/20 04:29 ABG HCO3 43.6 mmol/L (22-26) H 05/08/20 04:29 ABG O2 Saturation 90.8 05/08/20 04:29 ABG Base Excess 16.7 mmol/L (-2.0-2.0) H 05/08/20 04:29 Aiden Test N/a 05/08/20 04:29 A-a O2 Gradient 20.0 mmHg (5-10) H 05/08/20 04:29 Hematocrit 42.2 % (37-47) 05/08/20 04:29 Hgb O2 Saturation 88.7 % (95-100) L 05/08/20 04:29 Carboxyhemoglobin 1.8 %THgb (0.4-20.1) 05/08/20 04:29 Methemoglobin 0.6 % (0.4-1.5) 05/08/20 04:29 Total Hemoglobin 13.8 g/dL (12-16) 05/08/20 04:29 Sodium 145.0 mmol/L (131-143) H 05/08/20 04:29 Potassium 3.4 mmol/L (3.5-5.0) L 05/08/20 04:29 Glucose 124.0 mg/dL (70-115) H 05/08/20 04:29 Ionized Calcium 1.2 mmol/L (1.1-1.4) 05/08/20 04:29 O2 Delivery Device Vent 05/08/20 04:29 FiO2 40.0 % 05/08/20 04:29 Tidal Volume 0.45 05/07/20 04:40 PEEP 8.0 cmH20 05/08/20 04:29 Anthropological Linguist ID [email or web address] 05/08/20 04:29 Sodium 142 mmol/L (136-145) 05/08/20 03:13 Potassium 3.4 mmol/L (3.5-5.1) L 05/08/20 03:13 Chloride 97 mmol/L (98-107) L 05/08/20 03:13 Carbon Dioxide 40 mmol/L (22-29) H 05/08/20 03:13 Anion Gap 8.4 (5-19) 05/08/20 03:13 BUN 20 mg/dL (6-20) 05/08/20 03:13 Creatinine 0.6 mg/dL (0.5-0.9) 05/08/20 03:13 GFR Calculation 113.1 mL/min (90-130) 05/08/20 03:13 Glucose 126 mg/dL (65-115) H 05/08/20 03:13 POC Glucose 108 mg/dL (70-110) 05/08/20 11:07 Estimat Average Glucose 148 04/27/20 01:10 Hemoglobin A1c 6.8 % (4.0-6.0) H 04/27/20 01:10 Calculated Osmolality 292 mOsm/kg (285-295) 05/08/20 03:13 Calcium 9.2 mg/dL (8.5-10.5) 05/08/20 03:13 Magnesium 1.8 mg/dL (1.7-2.3) 04/30/20 05:50 Total Bilirubin 1.2 mg/dL (0.15-1.2) 05/08/20 03:13 AST 25 U/L (0-32) 05/08/20 03:13 ALT 20 U/L (0-33) 05/08/20 03:13 Alkaline Phosphatase 112 IU/L (35-105) H 05/08/20 03:13 Troponin T Baseline 75 ng/L (0-10) H 04/26/20 19:33 Troponin T 120 Minute 104.0 ng/L (0-10) H 04/26/20 21:38 Delta Troponin T 29.0 ABS# (0-10) H* 04/26/20 21:38 Troponin T Hi Sens 6Hr 99.07 ng/L (0-10) H 04/27/20 01:10 Troponin T Hi Sens 6Hr Delta 24.07 ng/L (0-12) H* 04/27/20 01:10 NT-Pro-B Natriuret Pep 4885 pg/mL (0-125) H 04/26/20 19:33 Total Protein 7.4 g/dL (6.6-8.7) 05/08/20 03:13 Albumin 2.6 g/dL (3.5-5.2) L 05/08/20 03:13 Globulin 4.8 g/dL (1.3-4.6) H 05/08/20 03:13 Triglycerides 84 mg/dL (0-150) 04/26/20 19:33 Cholesterol 165 mg/dL (0-200) 04/26/20 19:33 LDL Cholesterol, Calc 103 mg/dL (50-129) 04/26/20 19:33 HDL Cholesterol 45 mg/dL (60-100) L 04/26/20 19:33 LDL/HDL Ratio 2.29 RATIO (0.00-3.22) 04/26/20 19:33 Cholesterol/HDL Ratio 3.67 mg/dL (0.0-4.40) 04/26/20 19:33 TSH 1.41 uIU/mL (0.27-4.20) 04/26/20 19:33 HCG, Qual Negative (Negative) 05/02/20 03:20 Urine Color Yellow (Yellow) 05/06/20 08:30 Urine Appearance Cloudy (CLEAR) 05/06/20 08:30 Urine pH 8.0 (5-7) H 05/06/20 08:30 Ur Specific Morrison 1.005 (1.005-1.030) 05/06/20 08:30 Urine Protein 1+ (Negative) H 05/06/20 08:30 Urine Glucose (UA) Norm (Normal) 05/06/20 08:30 Urine Ketones 1+ (Negative) H 05/06/20 08:30 Urine Blood 3+ (Negative) H 05/06/20 08:30 Urine Nitrate Negative (Negative) 05/06/20 08:30 Urine Bilirubin 1+ (NEGATIVE) H 05/06/20 08:30 Urine Urobilinogen 4+ mg/dL (Negative) H 05/06/20 08:30 Ur Leukocyte Esterase Trace (Negative) H 05/06/20 08:30 Urine RBC 25-40 /hpf (0-2) H 05/06/20 08:30 Urine WBC 15-25 /hpf (0-5) H 05/06/20 08:30 Ur Squamous Epith Cells 5-10 (0-5) H 05/06/20 08:30 Amorphous Sediment Not Reportable 05/06/20 08:30 Urine Bacteria Trace (NONE) 05/06/20 08:30 Urine Yeast 3+ H 05/06/20 08:30 Vancomycin Trough 21.7 ug/mL (10-15) H 05/07/20 10:57 Nasal/Oral COVID-19 PCR Negative 04/27/20 08:25 Hepatitis A IgM Ab Non-reactive (Nonreactive) 04/27/20 01:10 Hep Bs Antigen Non-reactive (Nonreactive) 04/27/20 01:10 Hep B Core IgM Ab Non-reactive (Nonreactive) 04/27/20 01:10 Hepatitis C Antibody Non-reactive (Nonreactive) 04/27/20 01:10 SARS-CoV-2 Ag (Rapid) Negative (Negative) 04/27/20 08:25 Micro: Microbiology 05/06/20 08:30 Urine Culture - Preliminary Urine,Clean Catch Yeast species 05/06/20 10:20 Gram Stain - Final Sputum - Expectorated Sputum Sputum Culture - Preliminary Staphylococcus aureus 05/06/20 09:10 Blood Culture - Preliminary Blood NEGATIVE TO DATE 05/06/20 09:19 Blood Culture - Preliminary Blood NEGATIVE TO DATE A&P Assessment and plan (1) Elevated troponin: Most likely is a type II [place]. The troponin T is trending down. Patient denies any chest pain. May continue on the current management. Status: Acute (2) Morbid obesity with alveolar hypoventilation: Patient apparently has recurrent respiratory distress. Currently he is extubated. Status: Acute (3) Acute respiratory failure with hypoxia and hypercapnia: Most likely her acute exacerbation is presented with diastolic heart failure. She is on IV Bumex. May continue on the current medications. Status: Acute (4) Acute on chronic diastolic (congestive) heart failure: Careful IV diuresis mentioned above. We will optimize the antihypertensive medications. Status: Acute (5) Lower extremity cellulitis: Patient is on antibiotic. This may be continued. Status: Acute Qualifiers: Laterality: right Qualified Code(s): L03.115 - Cellulitis of right lower limb Additional A&P Information We will try to optimize anti-hypertensive medications. I may start her on isosorbide mononitrate 30 mg p.o. now and daily. Based on the clinical pr ogress, further recommendations will be made. Attestations Medical Necessity Statement*: Patient requires continued hospital stay for close monitoring and further management Coding Level of Care Code Acute Environmental Project Manager for [facility] Diagnoses Elevated troponin R79.89 Morbid obesity with alveolar hypoventilation E66.2 Acute respiratory failure with hypoxia and hypercapnia J96.01; J96.02 Acute on chronic diastolic (congestive) heart failure I50.33 Lower extremity cellulitis L03.115 Laterality: right
--- NOTE | 2020-05-08 13:15 | PC.NURSE ---
Patient up at side of bed with physical therapy in room. Patient tolerating physical therapy well with O2sats at 91% with BIPAP
--- NOTE | 2020-05-08 13:40 | PC.NURSE ---
This nursing aide assisted charge nurse, LAUREN, and another nursing aide with patient's pericare, changing of patient's bed linens, and repositioning of patient. Patient tolerated activities well. Patient is resting in bed with light out and tv on. Patient's call light is within reach.
--- NOTE | 2020-05-08 15:41 | PC.NURSE ---
wasted 80 mg of fentyl off vent at this time witness jeniffer RODRIGUEZ icu
[2020-05-08] MEDS: enoxaparin 40 mg/0.4 mL Syringe SUBCUT (17:27)
[2020-05-08] MEDS: metoprolol tartrate 25 mg Tablet PO (17:29)
[2020-05-08 17:38] LABS: Glucose Point of Care 96 mg/dL (70-110)
[2020-05-08] MEDS: isosorbide mononitrate ER 30 mg Tablet PO (19:00)
[2020-05-08 19:57] LABS: Glucose Point of Care 101 mg/dL (70-110)
--- NOTE | 2020-05-08 23:32 | PC.NURSE ---
Sat patient on side of bed while on HFNC with two RN's, RT. Patient sat for approximately 5 minutes on side of bed, tolerated well, VSS. Patient repositioned in bed, call light within reach
[2020-05-09] VITALS (33 sets, daily range): BP systolic 117–186; BP diastolic 57–114; PULSE 80–109; RESP 6–35; TEMP 37.1–37.3; O2SAT 88–99
[2020-05-09] MEDS: ipratropium-albuterol 3 mL Neb INHALATION ×4 (02:06→20:19)
[2020-05-09] MEDS: bumetanide 0.25 mg/mL SDV 10 mL 2 MG IV ×3 (02:59→18:00)
[2020-05-09 04:17] LABS: Basophils # 0.1 10^3/uL (0.0-0.1); Basophils % 0.5 %; Eosinophils # 0.4 10^3/uL (0.0-0.8); Eosinophils % 3.7 %; Hematocrit 42.6 % (37.0-47.0); Hemoglobin 12.7 g/dL (11.5-15.3); Lymphocytes % 10.5 %; Mean Corpuscular HGB Conc 29.8 g/dL (30.0-36.0); Mean Corpuscular Hemoglobin 28.6 pg (28.0-34.0); Mean Corpuscular Volume 95.9 fL (81-99); Mean Platelet Volume 10.9 fL (7.4-10.4); Monocytes # 0.7 10^3/uL (0.2-0.9); Monocytes % 7.8 %; Neutrophils # 7.36 10^3/uL (1.8-7.7); Neutrophils % 77.4 %; Nucleated Red Blood Cells % 0 %; Platelet Count 180 10^3/cmm (130-400); Red Blood Count 4.44 10^6/uL (4.1-5.3); Red Cell Distribution Width 16.5 % (12.1-15.1); White Blood Count 9.5 10^3/uL (4.0-10.0)
[2020-05-09 04:38] LABS: Alanine Aminotransferase 17 U/L (0-33); Albumin Level 2.5 g/dL (3.5-5.2); Alkaline Phosphatase 95 IU/L (35-105); Aspartate Amino Transferase 23 U/L (0-32); Blood Urea Nitrogen 18 mg/dL (6-20); Calcium 9.4 mg/dL (8.5-10.5); Carbon Dioxide 39 mmol/L (22-29); Chloride 95 mmol/L (98-107); Globulin 4.4 g/dL (1.3-4.6); Glomerular Filtration Rate 139.6 mL/min (90-130); Glucose 88 mg/dL (65-115); Osmolality Calculated 288 mOsm/kg (285-295); Sodium 141 mmol/L (136-145); Total Bilirubin 1.3 mg/dL (0.15-1.2); Total Protein 6.9 g/dL (6.6-8.7)
[2020-05-09 04:48] LABS: Anion Gap 10.7 (5-19); Potassium 3.7 mmol/L (3.5-5.1)
[2020-05-09 07:49] LABS: Glucose Point of Care 82 mg/dL (70-110)
[2020-05-09] MEDS: escitalopram 10 mg Tablet PO (09:36)
[2020-05-09] MEDS: BuSPIRONE 5 mg Tablet 7.5 MG PO ×2 (09:37→17:57)
[2020-05-09] MEDS: clopidogrel 75 mg Tablet PO (09:38)
[2020-05-09] MEDS: metoprolol tartrate 25 mg Tablet PO ×2 (09:38→17:57)
[2020-05-09] MEDS: lisinopril 5 mg Tablet 2.5 MG PO (09:39)
[2020-05-09] MEDS: isosorbide mononitrate ER 30 mg Tablet PO (09:41)
[2020-05-09] MEDS: atorvastatin 40 mg Tablet 80 MG PO (09:42)
[2020-05-09] MEDS: lactulose oral liq 20 gm/30 mL UDC 15 GM PO ×2 (09:45→18:04)
[2020-05-09] MEDS: polyethylene glycol 3350 Pkt 17 gm PO ×2 (09:46→18:05)
[2020-05-09] MEDS: pantoprazole 40 mg SDV IVP ×2 (09:54→20:16)
--- NOTE | 2020-05-09 11:02 | P.PN_ITS ---
Subjective Subjective: Interval history: Currently on heated high flow oxygen. Denies that she is uncomfortable breathing. Does want to try to take this down to just nasal cannula temporarily to speak with her children later today. Denies chest pain or pressure. Denies other pain discomfort at this time. Vitals/I&O/Wt Last Vital Signs Temp 98.7 F 05/09/20 04:00 Pulse 101 H 05/09/20 10:33 Resp 20 H 05/09/20 10:33 BP 186/114 05/09/20 10:00 Pulse Ox 93 05/09/20 10:33 05/08/20 05/09/20 05/09/20 22:59 06:59 14:59 Intake Total 940 / 1290 150 / 150 Output Total 500 / 2100 2900 / 5000 Balance 440 / -810 -2900 / -3710 150 / 150 Weight last 48 hrs Weight 161.615 kg Weight 161.932 kg Physical Exam Const: COMMON NORMALS: no acute distress and alert NUTRITIONAL APPEARANCE: obese HENMT: COMMON NORMALS: oropharynx normal Neck/C-Spine: OTHER: Awake, alert, speaking with family on video chat on her phone. High flow nasal cannula on. Thick neck, unable to assess for JVD Is generally somewhat weak. Resp: COMMON NORMALS: normal respiratory effort OTHER: Difficult to examine due to body habitus, however, does appear to have decent air entry, I do not detect adventitious sounds today. Cardio: COMMON NORMALS: regular rhythm, S1 normal heart sound present, S2 normal heart sound present and No murmurs present (Cardio) RHYTHM: regular rhythm HEART SOUNDS: S1 normal heart sound present and S2 normal heart sound present GI: COMMON NORMALS: Normal to inspection, nondistended, normoactive bowel sounds present, Soft to palpation and non-tender PALPATION: Yes Soft to palpation OTHER: Edema gradually decreasing, with pitting edema still on upper thighs, abdomen still present. Shrinking. No weeping. Extremity: COMMON NORMALS: no joint enlargement GENERAL: Yes edema (3+ peripheral upper and lower edema) Neuro: COMMON NORMALS: moves all extremities SENSORIUM/ORIENTATION: Yes al ert Skin: COMMON NORMALS: no rashes or lesions noted GENERAL SKIN EXAM: no rashes or lesions noted OTHER: Bilateral LE cellulitis below knees improving. Interspersed areas of scabbing scattered from healing blisters on legs, chest. Do not see mucosal lesions. Do not see fresh lesions. Urinary Catheter Management^: [place]: Cath Placed During This Visit: yes Reason for Continuing Indwelling Catheter: Accurate Measurement of Urinary Output in Critically Ill Patients Urinary Catheter Date of Insertion: 04/27/20 Urinary Catheter Time of Insertion: 22:16 Data : 05/09/20 03:55 05/09/20 03:55 Micro: Microbiology 05/06/20 10:20 Gram Stain - Final Sputum - Expectorated Sputum Sputum Culture - Final Staphylococcus aureus 05/06/20 08:30 Urine Culture - Preliminary Urine,Clean Catch Yeast species A&P Assessment and plan (1) Acute respiratory failure with hypoxia and hypercapnia: Extubated, so far doing well on heated high flow oxygen about 45% FiO2. Wants to try to temporarily take down high flow cannula for short conversation with her children on the video chat. Okay with nasal cannula at this time. Continue diuresis. Continue antibiotics for now. Wean down oxygen as tolerating. Monitor in ICU for now. Weight continues to decrease. Mild airspace consolidation in both lung bases, probable subpulmonic effusions on chest x-ray. Continue PT. She got exhausted try to sit at the edge of the bed. She likely has obesity hypoventilation. Cannot rule out COPD, pulmonary hypertension, severe sleep apnea, possible contributing pneumonia. No pulmonary emboli on CTA. Will need BiPAP at home due to OHS, MARTINEZ. COVID testing negative Status: Acute (2) New onset of congestive heart failure: Down to 161 kg. Continue IV diuresis. Echocardiogram is complete and poor quality and EF appears approximately 50% Consistent with acute diastolic heart failure. Will need additional evaluation by left and right heart cath prior to discharge. Status: Acute (3) Obesity hypoventilation syndrome: Will likely need BiPAP at night when discharged from the hospital Status: Acute (4) Sepsis: Sepsis appear resolved. Concern for underlying infections as below. Concern regarding possibility of pneumonia. Zosyn was stopped and was started on cefepime and vancomycin on 05/06. Cellulitis of lower extremities appears to be gradually improving. Venous duplex was negative for DVT On the legs erythema appears to be somewhat better. Not sure that she will require debridement. We will continue to reevaluate. Continue cefepime, Vanco currently for possible PNA, cellulitis. MRSA PCR negative. Erythema of legs continued to improve and again this appears to have been secondary to severe edema and bilateral venous stasis. Still present. Mild erythema unchanged on lower abdomen. No fresh areas of sloughing of supericial dermis. Sputum and blood cultures negative. Status: Acute Qualifiers: Sepsis type: sepsis due to unspecified organism Sepsis acute organ dysfunction status: with acute organ dysfunction Severe sepsis acute organ dysfunction type: acute respiratory failure Acute respiratory failure type: with hypercapnia Severe sepsis shock status: without septic shock Qualified Code(s): A41.9 - Sepsis, unspecified organism; R65.20 - Severe sepsis without septic shock; J96.02 - Acute respiratory failure with hypercapnia (5) NSTEMI (non-ST elevated myocardial infarction): On statin, Plavix. ASA had to be DC'd. Continue beta-tali low dose. Cardiology input appreciated. She has having some spontaneous bleeding and heparin was discontinued last night. Aspirin has been discontinued. Status: Acute Additional A&P Information Mild hypokalemia: Replaced. Tobacco dependency History of hypertension. Continue low-dose lisinopril Depression/anxiety. Continue home medications. Full code Secondary to spontaneous bleeding heparin drip has been discontinued. Lovenox DVT prophylaxis dosing. Protonix for GI prophylaxis. Nutrition. Advance GI soft. Attestations Medical Necessity Statement*: Continue admission for assessment and respite failure with multiple underlying comorbidities, trochanter pneumonia, CHF, ce llulitis. Coding Level of Care Code Acute Mysql Database Administrator for [facility] Diagnoses Acute respiratory failure with hypoxia and hypercapnia J96.01; J96.02 New onset of congestive heart failure I50.9 Obesity hypoventilation syndrome E66.2 Sepsis A41.9; R65.20; J96.02 Sepsis type: sepsis due to unspecified organism Sepsis acute organ dysfunction status: with acute organ dysfunction Severe sepsis acute organ dysfunction type: acute respiratory failure Acute respiratory failure type: with hypercapnia Severe sepsis shock status: without septic shock NSTEMI (non-ST elevated myocardial infarction) I21.4
--- NOTE | 2020-05-09 11:17 | PC.NURSE ---
Bandage change done to patient's right lower leg ulcer as bandage had come off. Purulent drainage noted. This nursing specialist applied a silvercel bandage and wrapped with gauze bandage. Patient tolerated bandage change well.
[2020-05-09 11:23] LABS: Glucose Point of Care 90 mg/dL (70-110)
[2020-05-09] MEDS: cefepime 2,000 MG in sodium chloride 0.9% (plus) 50 ML 100 MG IV ×2 (11:51→22:11)
--- NOTE | 2020-05-09 12:10 | PC.NURSE ---
Patient sitting up at side of bed eating lunch; physical therapy at bedside. Patient tolerated transfer from lying to sitting well.
[2020-05-09 17:08] LABS: Glucose Point of Care 85 mg/dL (70-110)
[2020-05-09] MEDS: enoxaparin 40 mg/0.4 mL Syringe SUBCUT (18:10)
--- NOTE | 2020-05-09 18:59 | P.PN_ITS ---
Subjective Subjective: Interval history: Patient continues to remain extubated. Denies any chest pain .shortness of breath is improving. No fever or chills. No significant cough. Medications: Reviewed: Yes Medication Review Details: Current Medications Acetaminophen (Tylenol) 325 mg PO Q4H PRN PRN Reason: MILD PAIN OR INCREASE TEMP Albuterol/Ipratropium (Duoneb) 3 ml INHALATION Q6H.RESPIRATORY [facility] Last Admin: 05/09/20 14:25 Dose: 3 ml Documented by: Atorvastatin Calcium (Lipitor) 80 mg PO DAILY [facility] Last Admin: 05/09/20 09:42 Dose: 80 mg Documented by: Bumetanide (Bumex) 2 mg IV Q8H [facility] Last Admin: 05/09/20 18:00 Dose: 2 mg Documented by: Buspirone HCl (Buspar) 7.5 mg PO BID [facility] Last Admin: 05/09/20 17:57 Dose: 7.5 mg Documented by: Clopidogrel Bisulfate (Plavix) 75 mg PO DAILY [facility] Last Admin: 05/09/20 09:38 Dose: 75 mg Documented by: Dextrose (D50w) 25 ml IVP ONCE PRN; Protocol PRN Reason: hypoglycemia protocol Last Admin: 04/29/20 08:18 Dose: 25 ml Documented by: Dextrose (D50w) 50 ml IVP PRN PRN; Protocol PRN Reason: hypoglycemia protocol Last Admin: 04/29/20 11:20 Dose: 50 ml Documented by: Enoxaparin Sodium (Lovenox) 40 mg SUBCUT Q24H [facility] Last Admin: 05/09/20 18:10 Dose: 40 mg Documented by: Escitalopram Oxalate (Lexapro) 10 mg PO DAILY [facility] Last Admin: 05/09/20 09:36 Dose: 10 mg Documented by: Glucagon (Glucagen) 1 mg IM ONCE PRN; Protocol PRN Reason: Adult Acute Hypoglycemia Prot. Heparin Sodium (Beef Lung) (Heparin Lock Flush) 500 unit IV BID [facility] Last Admin: 05/09/20 18:06 Dose: 500 unit Documented by: Propofol (Diprivan) 1,000 mg in 100 mls @ 0 mls/hr IV .Q0M [facility]; Protocol Last Titration: 05/05/20 13:25 Dose: 0 mcg/kg/min, 0 mls/hr Documented by: Dextrose (D5w) 500 mls @ 100 mls/hr IV ONCE PRN; Protocol PRN Reason: Adult Acute Hypoglycemia Prot Cefepime HCl 2,000 mg/ Sodium (Chloride) 50 mls @ 100 mls/hr IV Q12H [facility]; Protocol Last Admin: 05/09/20 11:51 Dose: 100 mls/hr Documented by: Fentanyl 1,000 mcg/ Sodium (Chloride) 100 mls @ 0 mls/hr IV .Q0M [facility]; Protocol Last Titration: 05/08/20 15:40 Dose: Infused Documented by: Vancomycin HCl 1,500 mg/ (Sodium Chloride) 250 mls @ 166.667 mls/hr IV Q12H [facility]; Protocol Last Admin: 05/09/20 10:12 Dose: 166.7 mls/hr Documented by: Insulin Aspart (Novolog) 0 unit SUBCUT WM&BEDTIME [facility]; Protocol Last Admin: 05/09/20 18:30 Dose: Not Given Documented by: Isosorbide Mononitrate (Imdur) 30 mg PO DAILY [facility] Last Admin: 05/09/20 09:41 Dose: 30 mg Documented by: Lactulose (Constulose) 15 gm PO BID [facility] Last Admin: 05/09/20 18:04 Dose: 15 gm Documented by: Lisinopril (Prinivil) 2.5 mg PO DAILY [facility] Last Admin: 05/09/20 09:39 Dose: 2.5 mg Documented by: Metoprolol Tartrate (Lopressor) 25 mg PO BID [facility] Last Admin: 05/09/20 17:57 Dose: 25 mg Documented by: Nystatin (Nystatin Powder) 1 applic TOPICAL BID [facility] Last Admin: 05/09/20 18:30 Dose: Not Given Documented by: Pantoprazole Sodium (Protonix) 40 mg IVP Q12H [facility] Last Admin: 05/09/20 09:54 Dose: 40 mg Documented by: Polyethylene Glycol (Miralax) 17 gm PO BID [facility] Last Admin: 05/09/20 18:05 Dose: 17 gm Documented by: Senna/Docusate Sodium (Senna-S) 1 tab PO DAILY PRN PRN Reason: CONSTIPATION Vitals/I&O/Wt Last Vital Signs Temp 98.7 F 05/09/20 04:00 Pulse 101 H 05/09/20 18:00 Resp 22 H 05/09/20 18:00 BP 171/86 05/09/20 18:00 Pulse Ox 98 05/09/20 18:00 05/09/20 05/09/20 05/09/20 06:59 14:59 22:59 Intake Total 50 / 1340 510 / 510 360 / 870 Output Total 2900 / 5000 2250 / 2250 500 / 2750 Balance -2850 / -3660 -1740 / -1740 -140 / -1880 Weight last 48 hrs Weight 356 lb 4.8 oz Weight 357 lb Physical Exam Narrative: EXAM NARRATIVE: GENERAL: The patient is alert and oriented times two. Not in any acute distress. Mildly tachypneic. Morbidly obese. HEENT: No significant pallor, icterus or lymphadenopathy.Oral cavity: There are no mucous membrane lesions. NECK: Trachea appears to be central. No masses noted. No JVD or thyromegaly appr eciated. RESPIRATORY: Chest is symmetrical. No intercostals muscle retraction or any accessory muscle activation. There is no chest wall tenderness. Breath sounds are heard bilaterally. No rales or rhonchi heard. No evidence of any consolidation. Breath sounds are diminished in the bases. BREASTS: Deferred. HEART: The heart sounds are distant. No significant murmurs appreciated. ABDOMEN: Abdomen is obese and nontender. Bowel sounds are normally heard. : Deferred. RECTAL: Deferred. LYMPHATIC: No lymphadenopathy noted in the neck or groin. EXTREMITIES: 2+ edema both lower extremities. Features of chronic venous stasis and stasis dermatitis/cellulitis. MUSCULOSKELETAL: No acute joint deformities or swelling SKIN: There are no significant rashes or ecchymosis NEUROPSYCHIATRIC: Patient just got extubated. Somewhat drowsy. Responds to questions appropriately Urinary Catheter Management^: [place]: Cath Placed During This Visit: yes Reason for Continuing Indwelling Catheter: Accurate Measurement of Urinary Output in Critically Ill Patients Urinary Catheter Date of Insertion: 04/27/20 Urinary Catheter Time of Insertion: 22:16 Data : 05/09/20 03:55 05/09/20 03:55 Micro: Microbiology 05/06/20 08:30 Urine Culture - Final Urine,Clean Catch Viola albicans 05/06/20 10:20 Gram Stain - Final Sputum - Expectorated Sputum Sputum Culture - Final Staphylococcus aureus Laboratory Last Values WBC 9.5 10^3/uL (4.0-10.0) 05/09/20 03:55 Corrected WBC Cancelled 05/01/20 03:10 RBC 4.44 10^6/uL (4.1-5.3) 05/09/20 03:55 Hgb 12.7 g/dL (11.5-15.3) 05/09/20 03:55 Hct 42.6 % (37.0-47.0) 05/09/20 03:55 MCV 95.9 fL (81-99) 05/09/20 03:55 MCH 28.6 pg (28.0-34.0) 05/09/20 03:55 MCHC 29.8 g/dL (30.0-36.0) L 05/09/20 03:55 RDW 16.5 % (12.1-15.1) H 05/09/20 03:55 Plt Count 180 10^3/cmm (130-400) 05/09/20 03:55 MPV 10.9 fL (7.4-10.4) H 05/09/20 03:55 Gran % Cancelled 05/01/20 03:10 Neut % (Auto) 77.4 % 05/09/20 03:55 Lymph % (Auto) 10.5 % 05/09/20 03:55 Elk % (Auto) 7.8 % 05/09/20 03:55 Eos % (Auto) 3.7 % 05/09/20 03:55 Baso % (Auto) 0.5 % 05/09/20 03:55 Neut # (Auto) 7.36 10^3/uL (1.8-7.7) 05/09/20 03:55 Lymph # (Auto) 1.0 10^3/uL (0.8-4.8) 05/09/20 03:55 Elk # (Auto) 0.7 10^3/uL (0.2-0.9) 05/09/20 03:55 Eos # (Auto) 0.4 10^3/uL (0.0-0.8) 05/09/20 03:55 Baso # (Auto) 0.1 10^3/uL (0.0-0.1) 05/09/20 03:55 Absolute Gran (auto) Cancelled 05/01/20 03:10 Nucleated RBC % (auto) 0 % 05/09/20 03:55 Nucleated RBCs # 0.0 /100WBC 05/09/20 03:55 PT 15.70 SECONDS (12.1-14.9) H 04/30/20 00:16 INR 1.21 (0.8-1.2) H 04/30/20 00:16 APTT 35.1 SECONDS (23.9-36.7) 05/02/20 03:20 Fibrinogen 581 mg/dL (174-498) H 04/30/20 00:16 Fibrin Degrad Products Neg, <10 ug/mL (NEG) 04/30/20 00:16 D-Dimer 2.65 ug/mIFEU (0-0.59) H 04/30/20 00:16 Specimen Type Arterial 05/08/20 04:29 Sample Site Brachial, right 05/08/20 04:29 ABG pH 7.47 (7.35-7.45) H 05/08/20 04:29 ABG pCO2 60.2 mmHg (35-45) H* 05/08/20 04:29 ABG pO2 57.7 mmHg (80.0-100.0) L 05/08/20 04:29 ABG HCO3 43.6 mmol/L (22-26) H 05/08/20 04:29 ABG O2 Saturation 90.8 05/08/20 04:29 ABG Base Excess 16.7 mmol/L (-2.0-2.0) H 05/08/20 04:29 Aiden Test N/a 05/08/20 04:29 A-a O2 Gradient 20.0 mmHg (5-10) H 05/08/20 04:29 Hematocrit 42.2 % (37-47) 05/08/20 04:29 Hgb O2 Saturation 88.7 % (95-100) L 05/08/20 04:29 Carboxyhemoglobin 1.8 %THgb (0.4-20.1) 05/08/20 04:29 Methemoglobin 0.6 % (0.4-1.5) 05/08/20 04:29 Total Hemoglobin 13.8 g/dL (12-16) 05/08/20 04:29 Sodium 145.0 mmol/L (131-143) H 05/08/20 04:29 Potassium 3.4 mmol/L (3.5-5.0) L 05/08/20 04:29 Glucose 124.0 mg/dL (70-115) H 05/08/20 04:29 Ionized Calcium 1.2 mmol/L (1.1-1.4) 05/08/20 04:29 O2 Delivery Device Vent 05/08/20 04:29 FiO2 40.0 % 05/08/20 04:29 Tidal Volume 0.45 05/07/20 04:40 PEEP 8.0 cmH20 05/08/20 04:29 Iv Rn ID vossa 05/08/20 04:29 Sodium 141 mmol/L (136-145) 05/09/20 03:55 Potassium 3.7 mmol/L (3.5-5.1) 05/09/20 03:55 Chloride 95 mmol/L (98-107) L 05/09/20 03:55 Carbon Dioxide 39 mmol/L (22-29) H 05/09/20 03:55 Anion Gap 10.7 (5-19) 05/09/20 03:55 BUN 18 mg/dL (6-20) 05/09/20 03:55 Creatinine 0.5 mg/dL (0.5-0.9) 05/09/20 03:55 GFR Calculation 139.6 mL/min (90-130) H 05/09/20 03:55 Glucose 88 mg/dL (65-115) 05/09/20 03:55 POC Glucose 85 mg/dL (70-110) 05/09/20 17:05 Estimat Average Glucose 148 04/27/20 01:10 Hemoglobin A1c 6.8 % (4.0-6.0) H 04/27/20 01:10 Calculated Osmolality 288 mOsm/kg (285-295) 05/09/20 03:55 Calcium 9.4 mg/dL (8.5-10.5) 05/09/20 03:55 Magnesium 1.8 mg/dL (1.7-2.3) 04/30/20 05:50 Total Bilirubin 1.3 mg/dL (0.15-1.2) H 05/09/20 03:55 AST 23 U/L (0-32) 05/09/20 03:55 ALT 17 U/L (0-33) 05/09/20 03:55 Alkaline Phosphatase 95 IU/L (35-105) 05/09/20 03:55 Troponin T Baseline 75 ng/L (0-10) H 04/26/20 19:33 Troponin T 120 Minute 104.0 ng/L (0-10) H 04/26/20 21:38 Delta Troponin T 29.0 ABS# (0-10) H* 04/26/20 21:38 Troponin T Hi Sens 6Hr 99.07 ng/L (0-10) H 04/27/20 01:10 Troponin T Hi Sens 6Hr Delta 24.07 ng/L (0-12) H* 04/27/20 01:10 NT-Pro-B Natriuret Pep 4885 pg/mL (0-125) H 04/26/20 19:33 Total Protein 6.9 g/dL (6.6-8.7) 05/09/20 03:55 Albumin 2.5 g/dL (3.5-5.2) L 05/09/20 03:55 Globulin 4.4 g/dL (1.3-4.6) 05/09/20 03:55 Triglycerides 84 mg/dL (0-150) 04/26/20 19:33 Cholesterol 165 mg/dL (0-200) 04/26/20 19:33 LDL Cholesterol, Calc 103 mg/dL (50-129) 04/26/20 19:33 HDL Cholesterol 45 mg/dL (60-100) L 04/26/20 19:33 LDL/HDL Ratio 2.29 RATIO (0.00-3.22) 04/26/20 19:33 Cholesterol/HDL Ratio 3.67 mg/dL (0.0-4.40) 04/26/20 19:33 TSH 1.41 uIU/mL (0.27-4.20) 04/26/20 19:33 HCG, Qual Negative (Negative) 05/02/20 03:20 Urine Color Yellow (Yellow) 05/06/20 08:30 Urine Appearance Cloudy (CLEAR) 05/06/20 08:30 Urine pH 8.0 (5-7) H 05/06/20 08:30 Ur Specific [place] 1.005 (1.005-1.030) 05/06/20 08:30 Urine Protein 1+ (Negative) H 05/06/20 08:30 Urine Glucose (UA) Norm (Normal) 05/06/20 08:30 Urine Ketones 1+ (Negative) H 05/06/20 08:30 Urine Blood 3+ (Negative) H 05/06/20 08:30 Urine Nitrate Negative (Negative) 05/06/20 08:30 Urine Bilirubin 1+ (NEGATIVE) H 05/06/20 08:30 Urine Urobilinogen 4+ mg/dL (Negative) H 05/06/20 08:30 Ur Leukocyte Esterase Trace (Negative) H 05/06/20 08:30 Urine RBC 25-40 /hpf (0-2) H 05/06/20 08:30 Urine WBC 15-25 /hpf (0-5) H 05/06/20 08:30 Ur Squamous Epith Cells 5-10 (0-5) H 05/06/20 08:30 Amorphous Sediment Not Reportable 05/06/20 08:30 Urine Bacteria Trace (NONE) 05/06/20 08:30 Urine Yeast 3+ H 05/06/20 08:30 Vancomycin Trough 21.7 ug/mL (10-15) H 05/07/20 10:57 Nasal/Oral COVID-19 PCR Negative 04/27/20 08:25 Hepatitis A IgM Ab Non-reactive (Nonreactive) 04/27/20 01:10 Hep Bs Antigen Non-reactive (Nonreactive) 04/27/20 01:10 Hep B Core IgM Ab Non-reactive (Nonreactive) 04/27/20 01:10 Hepatitis C Antibody Non-reactive (Nonreactive) 04/27/20 01:10 SARS-CoV-2 Ag (Rapid) Negative (Negative) 04/27/20 08:25 A&P Assessment and plan (1) Elevated troponin: Considering the possibility of underlying coronary ischemia, may consider doing a myocardial perfusion imaging, to further evaluate the coronary status Status: Acute (2) Morbid obesity with alveolar hypoventilation: Patient apparently has recurrent respiratory distress. Currently he is extubated. Status: Acute (3) Acute respiratory failure with hypoxia and hypercapnia: Most likely her acute exacerbation is presented with diastolic heart failure. She is on IV Bumex. May continue on the current medications. Status: Acute (4) Acute on chronic diastolic (congestive) heart failure: Careful IV diuresis mentioned above. I may increase the dose of lisinopril to 5 mg p.o. daily. Continue other medications as it is Status: Acute (5) Lower extremity cellulitis: Patient is on antibiotic. This may be continued. Status: Acute Qualifiers: Laterality: right Qualified Code(s): L03.115 - Cellulitis of right lower limb Additional A&P Information Will consider doing a myocardial perfusion imaging, to evaluate for any underlying coronary ischemia before the hospital discharge. May continue on the current medication for the time Attestations Medical Necessity Statement*: Patient requires continued hospital stay for close monitoring and further management Coding Level of Care Code Acute Dtp Operator for Chg Fwd Diagnoses Elevated troponin R79.89 Morbid obesity with alveolar hypoventilation E66.2 Acute respiratory failure with hypoxia and hypercapnia J96.01; J96.02 Acute on chronic diastolic (congestive) heart failure I50.33 Lower extremity cellulitis L03.115 Laterality: right
[2020-05-09 20:26] LABS: Glucose Point of Care 116 mg/dL (70-110)
[2020-05-10] VITALS (35 sets, daily range): BP systolic 127–158; BP diastolic 64–103; PULSE 84–107; RESP 6–39; TEMP 36.6–37.6; O2SAT 90–97
[2020-05-10] MEDS: bumetanide 0.25 mg/mL SDV 10 mL 2 MG IV ×3 (01:04→18:17)
[2020-05-10] MEDS: ipratropium-albuterol 3 mL Neb INHALATION ×4 (02:52→20:00)
[2020-05-10 07:16] LABS: Glucose Point of Care 93 mg/dL (70-110)
[2020-05-10] MEDS: polyethylene glycol 3350 Pkt 17 gm PO ×2 (09:39→10:16)
[2020-05-10] MEDS: lactulose oral liq 20 gm/30 mL UDC 15 GM PO ×2 (09:39→18:20)
[2020-05-10] MEDS: BuSPIRONE 5 mg Tablet 7.5 MG PO ×2 (10:11→18:19)
[2020-05-10] MEDS: atorvastatin 40 mg Tablet 80 MG PO (10:11)
[2020-05-10] MEDS: clopidogrel 75 mg Tablet PO (10:12)
[2020-05-10] MEDS: escitalopram 10 mg Tablet PO (10:12)
[2020-05-10] MEDS: metoprolol tartrate 25 mg Tablet PO ×2 (10:13→18:19)
[2020-05-10] MEDS: lisinopril 5 mg Tablet PO (10:13)
[2020-05-10] MEDS: isosorbide mononitrate ER 30 mg Tablet PO (10:13)
[2020-05-10] MEDS: nystatin powder 15 gm Btl 1 APPLIC TOPICAL ×2 (10:14→18:21)
[2020-05-10] MEDS: pantoprazole 40 mg SDV IVP ×2 (10:15→20:12)
[2020-05-10] MEDS: cefepime 2,000 MG in sodium chloride 0.9% (plus) 50 ML 100 MG IV (10:45)
[2020-05-10 11:27] LABS: Glucose Point of Care 114 mg/dL (70-110)
--- NOTE | 2020-05-10 12:59 | PM.PN ---
Subjective Subjective: Interval history: On high flow NC, unchanged 02 requirements over yesterday. Medications: Reviewed: Yes Medication Review Details: Current Medications Acetaminophen (Tylenol) 325 mg PO Q4H PRN PRN Reason: MILD PAIN OR INCREASE TEMP Albuterol/Ipratropium (Duoneb) 3 ml INHALATION Q6H.RESPIRATORY [facility] Last Admin: 05/09/20 14:25 Dose: 3 ml Documented by: Atorvastatin Calcium (Lipitor) 80 mg PO DAILY [facility] Last Admin: 05/09/20 09:42 Dose: 80 mg Documented by: Bumetanide (Bumex) 2 mg IV Q8H [facility] Last Admin: 05/09/20 18:00 Dose: 2 mg Documented by: Buspirone HCl (Buspar) 7.5 mg PO BID [facility] Last Admin: 05/09/20 17:57 Dose: 7.5 mg Documented by: Clopidogrel Bisulfate (Plavix) 75 mg PO DAILY [facility] Last Admin: 05/09/20 09:38 Dose: 75 mg Documented by: Dextrose (D50w) 25 ml IVP ONCE PRN; Protocol PRN Reason: hypoglycemia protocol Last Admin: 04/29/20 08:18 Dose: 25 ml Documented by: Dextrose (D50w) 50 ml IVP PRN PRN; Protocol PRN Reason: hypoglycemia protocol Last Admin: 04/29/20 11:20 Dose: 50 ml Documented by: Enoxaparin Sodium (Lovenox) 40 mg SUBCUT Q24H [facility] Last Admin: 05/09/20 18:10 Dose: 40 mg Documented by: Escitalopram Oxalate (Lexapro) 10 mg PO DAILY [facility] Last Admin: 05/09/20 09:36 Dose: 10 mg Documented by: Glucagon (Glucagen) 1 mg IM ONCE PRN; Protocol PRN Reason: Adult Acute Hypoglycemia Prot. Heparin Sodium (Beef Lung) (Heparin Lock Flush) 500 unit IV BID [facility] Last Admin: 05/09/20 18:06 Dose: 500 unit Documented by: Propofol (Diprivan) 1,000 mg in 100 mls @ 0 mls/hr IV .Q0M [facility]; Protocol Last Titration: 05/05/20 13:25 Dose: 0 mcg/kg/min, 0 mls/hr Documented by: Dextrose (D5w) 500 mls @ 100 mls/hr IV ONCE PRN; Protocol PRN Reason: Adult Acute Hypoglycemia Prot Cefepime HCl 2,000 mg/ Sodium (Chloride) 50 mls @ 100 mls/hr IV Q12H [facility]; Protocol Last Admin: 05/09/20 11:51 Dose: 100 mls/hr Documented by: Fentanyl 1,000 mcg/ Sodium (Chloride) 100 mls @ 0 mls/hr IV .Q0M [facility]; Protocol Last Titration: 05/08/20 15:40 Dose: Infused Documented by: Vancomycin HCl 1,500 mg/ (Sodium Chloride) 250 mls @ 166.667 mls/hr IV Q12H [facility]; Protocol Last Admin: 05/09/20 10:12 Dose: 166.7 mls/hr Documented by: Insulin Aspart (Novolog) 0 unit SUBCUT WM&BEDTIME [facility]; Protocol Last Admin: 05/09/20 18:30 Dose: Not Given Documented by: Isosorbide Mononitrate (Imdur) 30 mg PO DAILY [facility] Last Admin: 05/09/20 09:41 Dose: 30 mg Documented by: Lactulose (Constulose) 15 gm PO BID [facility] Last Admin: 05/09/20 18:04 Dose: 15 gm Documented by: Lisinopril (Prinivil) 2.5 mg PO DAILY [facility] Last Admin: 05/09/20 09:39 Dose: 2.5 mg Documented by: Metoprolol Tartrate (Lopressor) 25 mg PO BID [facility] Last Admin: 05/09/20 17:57 Dose: 25 mg Documented by: Nystatin (Nystatin Powder) 1 applic TOPICAL BID [facility] Last Admin: 05/09/20 18:30 Dose: Not Given Documented by: Pantoprazole Sodium (Protonix) 40 mg IVP Q12H [facility] Last Admin: 05/09/20 09:54 Dose: 40 mg Documented by: Polyethylene Glycol (Miralax) 17 gm PO BID [facility] Last Admin: 05/09/20 18:05 Dose: 17 gm Documented by: Senna/Docusate Sodium (Senna-S) 1 tab PO DAILY PRN PRN Reason: CONSTIPATION Vitals/I&O/Wt Last Vital Signs Temp 98.3 F 05/10/20 11:00 Pulse 97 05/10/20 12:00 Resp 20 H 05/10/20 12:00 BP 140/79 05/10/20 12:00 Pulse Ox 96 05/10/20 12:00 05/09/20 05/10/20 05/10/20 22:59 06:59 14:59 Intake Total 760 / 1570 1000 / 1000 Output Total 500 / 2750 1200 / 3950 1350 / 1350 Balance 260 / -1180 -1200 / -2380 -350 / -350 Weight last 48 hrs Weight 160.628 kg Weight 161.615 kg Physical Exam Narrative: EXAM NARRATIVE: GEN: Awake, alert and oriented, no acute distress CVS: S1S2 N RS: CTA B/L Abd: Soft, nt/nd , 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[employer]: no focal neuro deficits Urinary Catheter Management^: [place]: Cath Placed During This Visit: yes Reason for Continuing Indwelling Catheter: Accurate Measurement of Urinary Output in Critically Ill Patients Urinary Catheter Date of Insertion: 04/27/20 Urinary Catheter Time of Insertion: 22:16 Data : 05/09/20 03:55 05/09/20 03:55 Micro: Microbiology 05/06/20 08:30 Urine Culture - Final Urine,Clean Catch Viola albicans A&P Assessment and plan (1) Acute respiratory failure with hypoxia and hypercapnia: Extubated, so far doing well on heated high flow oxygen about 45% FiO2. Wants to try to temporarily take down high flow cannula for short conversation with her children on the video chat. Continue diuresis. Continue antibiotics for now. Wean down oxygen as tolerating. Monitor in ICU for now. Weight continues to decrease. Mild airspace consolidation in both lung bases, probable subpulmonic effusions on chest x-ray. Continue PT. She got exhausted try to sit at the edge of the bed. She likely has obesity hypoventilation. Cannot rule out COPD, pulmonary hypertension, severe sleep apnea, possible contributing pneumonia. No pulmonary emboli on CTA. Will need BiPAP at home due to OHS, MARTINEZ. COVID testing negative Status: Acute (2) New onset of congestive heart failure: Down to 161 kg. Continue IV diuresis. Echocardiogram is complete and poor quality and EF appears approximately 50% Consistent with acute diastolic heart failure. Will need additional evaluation by left and right heart cath prior to discharge. Status: Acute (3) Obesity hypoventilation syndrome: Will likely need BiPAP at night when discharged from the hospital Status: Acute (4) Sepsis: Sepsis appear resolved. Concern for underlying infections as below. Concern regarding possibility of pneumonia. Zosyn was stopped and was started on cefepime and vancomycin on 05/06. Cellulitis of lower extremities appears to be gradually improving. Venous duplex was negative for DVT On the legs erythema appears to be somewhat better. Not sure that she will require debridement. We will continue to reevaluate. Continue cefepime, Vanco currently for possible PNA, cellulitis. MRSA PCR negative. Erythema of legs continued to improve and again this appears to have been secondary to severe edema and bilateral venous stasis. Still present. Mild erythema unchanged on lower abdomen. No fresh areas of sloughing of supericial dermis. Sputum and blood cultures negative. Status: Acute Qualifiers: Sepsis type: sepsis due to unspecified organism Sepsis acute organ dysfunction status: with acute organ dysfunction Severe sepsis acute organ dysfunction type: acute respiratory failure Acute respiratory failure type: with hypercapnia Severe sepsis shock status: without septic shock Qualified Code(s): A41.9 - Sepsis, unspecified organism; R65.20 - Severe sepsis without septic shock; J96.02 - Acute respiratory failure with hypercapnia (5) NSTEMI (non-ST elevated myocardial infarction): On statin, Plavix. ASA had to be DC'd. Continue beta-tali low dose. Cardiology input appreciated. She has having some spontaneous bleeding and heparin was discontinued last night. Aspirin has been discontinued. Status: Acute Additional A&P Information Mild hypokalemia: Replaced. Tobacco dependency History of hypertension. Continue low-dose lisinopril Depression/anxiety. Continue home medications. Full code Secondary to spontaneous bleeding heparin drip has been discontinued. Lovenox DVT prophylaxis dosing. Protonix for GI prophylaxis. Nutrition. Advance GI soft. Plan today id to deescalate abx, patient has been on zosyn/vanc---> cefepime/vanc since 04/27. Stop cefepime/vanc today. Soutum cx isolate is MSSA. At any rate. has completed a significant course for VAP. Include atypical coverage iwth azithromycin. Check urine legionella antigen as still needing HFNC. Check procal. If negative, will likely d/c all abx at that time, continue diuresis. 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
[2020-05-10] MEDS: acetaminophen 325 mg Tablet PO (14:26)
[2020-05-10 15:21] LABS: Procalcitonin 0.09 ng/mL (0-0.5)
[2020-05-10 17:21] LABS: Glucose Point of Care 105 mg/dL (70-110)
--- NOTE | 2020-05-10 17:49 | PM.PN ---
Subjective Subjective: Interval history: Denies any complaint. On high flow nasal cannula. Medications: Reviewed: Yes Medication Review Details: Current Medications Acetaminophen (Tylenol) 325 mg PO Q4H PRN PRN Reason: MILD PAIN OR INCREASE TEMP Albuterol/Ipratropium (Duoneb) 3 ml INHALATION Q6H.RESPIRATORY [facility] Last Admin: 05/09/20 14:25 Dose: 3 ml Documented by: Atorvastatin Calcium (Lipitor) 80 mg PO DAILY [facility] Last Admin: 05/09/20 09:42 Dose: 80 mg Documented by: Bumetanide (Bumex) 2 mg IV Q8H [facility] Last Admin: 05/09/20 18:00 Dose: 2 mg Documented by: Buspirone HCl (Buspar) 7.5 mg PO BID [facility] Last Admin: 05/09/20 17:57 Dose: 7.5 mg Documented by: Clopidogrel Bisulfate (Plavix) 75 mg PO DAILY [facility] Last Admin: 05/09/20 09:38 Dose: 75 mg Documented by: Dextrose (D50w) 25 ml IVP ONCE PRN; Protocol PRN Reason: hypoglycemia protocol Last Admin: 04/29/20 08:18 Dose: 25 ml Documented by: Dextrose (D50w) 50 ml IVP PRN PRN; Protocol PRN Reason: hypoglycemia protocol Last Admin: 04/29/20 11:20 Dose: 50 ml Documented by: Enoxaparin Sodium (Lovenox) 40 mg SUBCUT Q24H [facility] Last Admin: 05/09/20 18:10 Dose: 40 mg Documented by: Escitalopram Oxalate (Lexapro) 10 mg PO DAILY [facility] Last Admin: 05/09/20 09:36 Dose: 10 mg Documented by: Glucagon (Glucagen) 1 mg IM ONCE PRN; Protocol PRN Reason: Adult Acute Hypoglycemia Prot. Heparin Sodium (Beef Lung) (Heparin Lock Flush) 500 unit IV BID [facility] Last Admin: 05/09/20 18:06 Dose: 500 unit Documented by: Propofol (Diprivan) 1,000 mg in 100 mls @ 0 mls/hr IV .Q0M [facility]; Protocol Last Titration: 05/05/20 13:25 Dose: 0 mcg/kg/min, 0 mls/hr Documented by: Dextrose (D5w) 500 mls @ 100 mls/hr IV ONCE PRN; Protocol PRN Reason: Adult Acute Hypoglycemia Prot Cefepime HCl 2,000 mg/ Sodium (Chloride) 50 mls @ 100 mls/hr IV Q12H [facility]; Protocol Last Admin: 05/09/20 11:51 Dose: 100 mls/hr Documented by: Fentanyl 1,000 mcg/ Sodium (Chloride) 100 mls @ 0 mls/hr IV .Q0M [facility]; Protocol Last Titration: 05/08/20 15:40 Dose: Infused Documented by: Vancomycin HCl 1,500 mg/ (Sodium Chloride) 250 mls @ 166.667 mls/hr IV Q12H [facility]; Protocol Last Admin: 05/09/20 10:12 Dose: 166.7 mls/hr Documented by: Insulin Aspart (Novolog) 0 unit SUBCUT WM&BEDTIME [facility]; Protocol Last Admin: 05/09/20 18:30 Dose: Not Given Documented by: Isosorbide Mononitrate (Imdur) 30 mg PO DAILY [facility] Last Admin: 05/09/20 09:41 Dose: 30 mg Documented by: Lactulose (Constulose) 15 gm PO BID [facility] Last Admin: 05/09/20 18:04 Dose: 15 gm Documented by: Lisinopril (Prinivil) 2.5 mg PO DAILY [facility] Last Admin: 05/09/20 09:39 Dose: 2.5 mg Documented by: Metoprolol Tartrate (Lopressor) 25 mg PO BID [facility] Last Admin: 05/09/20 17:57 Dose: 25 mg Documented by: Nystatin (Nystatin Powder) 1 applic TOPICAL BID [facility] Last Admin: 05/09/20 18:30 Dose: Not Given Documented by: Pantoprazole Sodium (Protonix) 40 mg IVP Q12H [facility] Last Admin: 05/09/20 09:54 Dose: 40 mg Documented by: Polyethylene Glycol (Miralax) 17 gm PO BID [facility] Last Admin: 05/09/20 18:05 Dose: 17 gm Documented by: Senna/Docusate Sodium (Senna-S) 1 tab PO DAILY PRN PRN Reason: CONSTIPATION Vitals/I&O/Wt Last Vital Signs Temp 99.2 F 05/10/20 14:00 Pulse 97 05/10/20 16:00 Resp 18 05/10/20 16:00 BP 149/85 05/10/20 16:00 Pulse Ox 93 05/10/20 16:00 05/10/20 05/10/20 05/10/20 06:59 14:59 22:59 Intake Total 1000 / 1000 Output Total 1200 / 3950 1350 / 1350 Balance -1200 / -2380 -350 / -350 Weight last 48 hrs Weight 354 lb 2 oz Weight 356 lb 4.8 oz Physical Exam Narrative: EXAM NARRATIVE: GENERAL: Patient is laying in the bed on high flow nasal cannula. She talks and communicate properly without any interruption. She is not short of breath. NECK: No jugular vein distension. HEENT: No cyanosis. No icterus. No pallor. HEART: Regular S1 and S2. No murmur, rub or gallop. LUNGS: No crackles bilaterally. ABDOMEN: Soft, nontender and nondistended. Positive bowel sounds. No guarding, rebound or tenderness. CENTRAL NERVOUS SYSTEM: Grossly nonfocal. EXTREMITIES: Lower extremities with 1+ edema bilaterally. Cellulitis has improved Urinary Catheter Management^: [place]: Cath Placed During This Visit: yes Reason for Continuing Indwelling Catheter: Accurate Measurement of Urinary Output in Critically Ill Patients Urinary Catheter Date of Insertion: 04/27/20 Urinary Catheter Time of Insertion: 22:16 Data : 05/09/20 03:55 05/09/20 03:55 Micro: Microbiology 05/10/20 13:22 Legionella Urinary Antigen - Final Urine Catheterized 05/06/20 08:30 Urine Culture - Final Urine,Clean Catch Viola albicans A&P Assessment and plan (1) Elevated troponin: Type II. Continue to current conservatively managed for now. Status: Acute (2) Morbid obesity with alveolar hypoventilation: Patient apparently has recurrent respiratory distress. Currently he is extubated. Status: Acute (3) Acute respiratory failure with hypoxia and hypercapnia: Stable. Continue current regimen Status: Acute (4) Acute on chronic diastolic (congestive) heart failure: Continue diuresis Status: Acute (5) Lower extremity cellulitis: Patient is on antibiotic. Continue. Status: Acute Qualifiers: Laterality: right Qualified Code(s): L03.115 - Cellulitis of right lower limb Additional A&P Information Will consider doing a myocardial perfusion imaging, to evaluate for any underlying coronary ischemia before the hospital discharge. May continue on the current medication for the time Attestations Medical Necessity Statement*: Require continuation hospitalization for above defined care Coding Level of Care Code Established Pt Acute Embryology Teacher for Chg Fwd Patient Type Established History Expanded Problem Focused Exam Expanded Problem Focused Medical Decision Making Moderate Complexity Diagnoses Elevated troponin R79.89 Morbid obesity with alveolar hypoventilation E66.2 Acute respiratory failure with hypoxia and hypercapnia J96.01; J96.02 Acute on chronic diastolic (congestive) heart failure I50.33 Lower extremity cellulitis L03.115 Laterality: right
[2020-05-10] MEDS: enoxaparin 40 mg/0.4 mL Syringe SUBCUT (18:18)
--- NOTE | 2020-05-10 18:33 | PC.NURSE ---
shift summary Patient maintained on high flow throughout shift. patient has gotten up to side of bed for all meals and was able to stand with PT using the sit to stand machine. Vital signs WNL throughout the day. no fever. patient tolerated bath well.
[2020-05-10 20:10] LABS: Glucose Point of Care 162 mg/dL (70-110)
[2020-05-11] VITALS (37 sets, daily range): BP systolic 135–169; BP diastolic 74–111; PULSE 52–111; RESP 16–42; TEMP 36.6–37.1; O2SAT 88–96
[2020-05-11] MEDS: bumetanide 0.25 mg/mL SDV 10 mL 2 MG IV ×3 (01:06→17:58)
[2020-05-11] MEDS: ipratropium-albuterol 3 mL Neb INHALATION ×4 (02:56→20:57)
[2020-05-11 04:26] LABS: Basophils # 0.1 10^3/uL (0.0-0.1); Basophils % 0.7 %; Eosinophils # 0.3 10^3/uL (0.0-0.8); Eosinophils % 4.5 %; Hematocrit 42.4 % (37.0-47.0); Hemoglobin 12.7 g/dL (11.5-15.3); Lymphocytes % 13.5 %; Mean Corpuscular Hemoglobin 28.5 pg (28.0-34.0); Mean Corpuscular Volume 95.3 fL (81-99); Mean Platelet Volume 11.3 fL (7.4-10.4); Monocytes # 0.7 10^3/uL (0.2-0.9); Monocytes % 8.8 %; Neutrophils # 5.35 10^3/uL (1.8-7.7); Neutrophils % 72.1 %; Nucleated Red Blood Cells % 0 %; Platelet Count 185 10^3/cmm (130-400); Red Blood Count 4.45 10^6/uL (4.1-5.3); White Blood Count 7.4 10^3/uL (4.0-10.0)
[2020-05-11 05:00] LABS: Alanine Aminotransferase 22 U/L (0-33); Alkaline Phosphatase 99 IU/L (35-105); Anion Gap 14.6 (5-19); Aspartate Amino Transferase 28 U/L (0-32); Blood Urea Nitrogen 18 mg/dL (6-20); Calcium 9.2 mg/dL (8.5-10.5); Carbon Dioxide 39 mmol/L (22-29); Chloride 92 mmol/L (98-107); Globulin 4.8 g/dL (1.3-4.6); Glomerular Filtration Rate 180.6 mL/min (90-130); Glucose 102 mg/dL (65-115); Osmolality Calculated 291 mOsm/kg (285-295); Potassium 3.6 mmol/L (3.5-5.1); Sodium 142 mmol/L (136-145); Total Bilirubin 1.3 mg/dL (0.15-1.2); Total Protein 7.8 g/dL (6.6-8.7)
[2020-05-11 07:25] LABS: Glucose Point of Care 90 mg/dL (70-110)
[2020-05-11] MEDS: atorvastatin 40 mg Tablet 80 MG PO (09:16)
[2020-05-11] MEDS: azithromycin 250 mg Tablet 500 MG PO (09:17)
[2020-05-11] MEDS: clopidogrel 75 mg Tablet PO (09:17)
[2020-05-11] MEDS: isosorbide mononitrate ER 30 mg Tablet PO (09:18)
[2020-05-11] MEDS: metoprolol tartrate 25 mg Tablet PO ×2 (09:18→17:58)
[2020-05-11] MEDS: lisinopril 5 mg Tablet PO (09:18)
[2020-05-11] MEDS: escitalopram 10 mg Tablet PO (09:19)
[2020-05-11] MEDS: BuSPIRONE 5 mg Tablet 7.5 MG PO ×2 (09:19→17:59)
[2020-05-11] MEDS: lactulose oral liq 20 gm/30 mL UDC 15 GM PO (09:20)
[2020-05-11] MEDS: nystatin powder 15 gm Btl 1 APPLIC TOPICAL ×2 (09:21→18:00)
[2020-05-11] MEDS: polyethylene glycol 3350 Pkt 17 gm PO ×2 (09:21→17:58)
[2020-05-11] MEDS: pantoprazole 40 mg SDV IVP ×2 (09:21→20:11)
[2020-05-11 11:36] LABS: Glucose Point of Care 112 mg/dL (70-110)
--- NOTE | 2020-05-11 16:16 | P.PN_ITS ---
Subjective Subjective: Interval history: Titrated down from heated high flow nasal cannula flow nasal cannula at 7 L/min. Tolerating this change well. O2 sat 96%. She is afebrile. Medications: Reviewed: Yes Vitals/I&O/Wt Last Vital Signs Temp 98.4 F 05/11/20 13:00 Pulse 98 05/11/20 16:00 Resp 29 H 05/11/20 16:00 BP 143/89 05/11/20 16:00 Pulse Ox 96 05/11/20 16:00 05/11/20 05/11/20 05/11/20 06:59 14:59 22:59 Intake Total 710 / 710 Output Total 3450 / 5600 1750 / 1750 Balance -3450 / -4300 -1040 / -1040 Weight last 48 hrs Weight 146.312 kg Weight 160.628 kg Physical Exam Narrative: EXAM NARRATIVE: GEN: Awake, alert and oriented, no acute distress CVS: S1S2 N RS: CTA B/L Abd: Soft, nt/nd , bs+ PHARMACEUTICAL DEVELOPMENT TECHNICIAN: no focal neuro deficits Urinary Catheter Management^: [place]: Cath Placed During This Visit: yes Reason for Continuing Indwelling Catheter: Accurate Measurement of Urinary Output in Critically Ill Patients Urinary Catheter Date of Insertion: 04/27/20 Urinary Catheter Time of Insertion: 22:16 Data : 05/11/20 03:45 05/11/20 03:45 Micro: Microbiology 05/06/20 09:10 Blood Culture - Final Blood NO GROWTH AFTER 5 DAYS 05/06/20 09:19 Blood Culture - Final Blood NO GROWTH AFTER 5 DAYS 05/10/20 13:22 Legionella Urinary Antigen - Final Urine Catheterized A&P Assessment and plan (1) Acute respiratory failure with hypoxia and hypercapnia: Extubated, so far doing well on heated high flow oxygen about 45% FiO2. Wants to try to temporarily take down high flow cannula for short conversation with her children on the video chat. Continue diuresis. Continue antibiotics for now. Wean down oxygen as tolerating. Monitor in ICU for now. Weight continues to decrease. Mild airspace consolidation in both lung bases, probable subpulmonic effusions on chest x-ray. Continue PT. She got exhausted try to sit at the edge of the bed. She likely has obesity hypoventilation. Cannot rule out COPD, pulmonary hypertension, severe sleep apnea, possible contributing pneumonia. No pulmonary emboli on CTA. Will need BiPAP at home due to OHS, MARTINEZ. COVID testing negative Status: Acute (2) New onset of congestive heart failure: Down to 161 kg. Continue IV diuresis. Echocardiogram is complete and poor quality and EF appears approximately 50% Consistent with acute diastolic heart failure. Will need additional evaluation by left and right heart cath prior to discharge. Status: Acute (3) Obesity hypoventilation syndrome: Will likely need BiPAP at night when discharged from the hospital Status: Acute (4) Sepsis: Sepsis appear resolved. Concern for underlying infections as below. Concern regarding possibility of pneumonia. Zosyn was stopped and was started on cefepime and vancomycin on 05/06. Cellulitis of lower extremities appears to be gradually improving. Venous duplex was negative for DVT On the legs erythema appears to be somewhat better. Not sure that she will require debridement. We will continue to reevaluate. Continue cefepime, Vanco currently for possible PNA, cellulitis. MRSA PCR negative. Erythema of legs continued to improve and again this appears to have been secondary to severe edema and bilateral venous stasis. Still present. Mild erythema unchanged on lower abdomen. No fresh areas of sloughing of supericial dermis. Sputum and blood cultures negative. Status: Acute Qualifiers: Sepsis type: sepsis due to unspecified organism Sepsis acute organ dysfunction status: with acute organ dysfunction Severe sepsis acute organ dysfunction type: acute respiratory failure Acute respiratory failure type: with hypercapnia Severe sepsis shock status: without septic shock Qualified Code(s): A41.9 - Sepsis, unspecified organism; R65.20 - Severe sepsis without septic shock; J96.02 - Acute respiratory failure with hypercapnia (5) NSTEMI (non-ST elevated myocardial infarction): On statin, Plavix. ASA had to be DC'd. Continue beta-tali low dose. Cardiology input appreciated. She has having some spontaneous bleeding and heparin was discontinued last night. Aspirin has been discontinued. Status: Acute Additional A&P Information Mild hypokalemia: Replaced. Tobacco dependency History of hypertension. Continue low-dose lisinopril Depression/anxiety. Continue home medications. Full code Secondary to spontaneous bleeding heparin drip has been discontinued. Lovenox DVT prophylaxis dosing. Protonix for GI prophylaxis. Nutrition. Advance GI soft. Patient doing clinically well to improving. She has been transitioned from heated high flow to a high flow nasal cannula at 7 L/min. Currently saturating 96%. Transfer out of ICU. Will order an overnight oximetry study to assess for for BiPAP. Attestations Medical Necessity Statement*: Overnight oximetry study today, continue to come down on oxygen requirements and monitor closely. Coding Level of Care Code Acute Seamless Tube Roller for Chg Fwd Diagnoses Acute respiratory failure with hypoxia and hypercapnia J96.01; J96.02 New onset of congestive heart failure I50.9 Obesity hypoventilation syndrome E66.2 Sepsis A41.9; R65.20; J96.02 Sepsis type: sepsis due to unspecified organism Sepsis acute organ dysfunction status: with acute organ dysfunction Severe sepsis acute organ dysfunction type: acute respiratory failure Acute respiratory failure type: with hypercapnia Severe sepsis shock status: without septic shock NSTEMI (non-ST elevated myocardial infarction) I21.4
[2020-05-11 17:14] LABS: Glucose Point of Care 97 mg/dL (70-110)
[2020-05-11] MEDS: enoxaparin 40 mg/0.4 mL Syringe SUBCUT (17:58)
[2020-05-11] MEDS: acetaminophen 325 mg Tablet PO (17:59)
--- NOTE | 2020-05-11 19:12 | P.PN_ITS ---
Subjective Subjective: Interval history: Breathing much better laying flat on the bed denies any complaint like to go home. Medications: Reviewed: Yes Medication Review Details: Current Medications Acetaminophen (Tylenol) 325 mg PO Q4H PRN PRN Reason: MILD PAIN OR INCREASE TEMP Albuterol/Ipratropium (Duoneb) 3 ml INHALATION Q6H.RESPIRATORY [facility] Last Admin: 05/09/20 14:25 Dose: 3 ml Documented by: Atorvastatin Calcium (Lipitor) 80 mg PO DAILY [facility] Last Admin: 05/09/20 09:42 Dose: 80 mg Documented by: Bumetanide (Bumex) 2 mg IV Q8H [facility] Last Admin: 05/09/20 18:00 Dose: 2 mg Documented by: Buspirone HCl (Buspar) 7.5 mg PO BID [facility] Last Admin: 05/09/20 17:57 Dose: 7.5 mg Documented by: Clopidogrel Bisulfate (Plavix) 75 mg PO DAILY [facility] Last Admin: 05/09/20 09:38 Dose: 75 mg Documented by: Dextrose (D50w) 25 ml IVP ONCE PRN; Protocol PRN Reason: hypoglycemia protocol Last Admin: 04/29/20 08:18 Dose: 25 ml Documented by: Dextrose (D50w) 50 ml IVP PRN PRN; Protocol PRN Reason: hypoglycemia protocol Last Admin: 04/29/20 11:20 Dose: 50 ml Documented by: Enoxaparin Sodium (Lovenox) 40 mg SUBCUT Q24H [facility] Last Admin: 05/09/20 18:10 Dose: 40 mg Documented by: Escitalopram Oxalate (Lexapro) 10 mg PO DAILY [facility] Last Admin: 05/09/20 09:36 Dose: 10 mg Documented by: Glucagon (Glucagen) 1 mg IM ONCE PRN; Protocol PRN Reason: Adult Acute Hypoglycemia Prot. Heparin Sodium (Beef Lung) (Heparin Lock Flush) 500 unit IV BID [facility] Last Admin: 05/09/20 18:06 Dose: 500 unit Documented by: Propofol (Diprivan) 1,000 mg in 100 mls @ 0 mls/hr IV .Q0M [facility]; Protocol Last Titration: 05/05/20 13:25 Dose: 0 mcg/kg/min, 0 mls/hr Documented by: Dextrose (D5w) 500 mls @ 100 mls/hr IV ONCE PRN; Protocol PRN Reason: Adult Acute Hypoglycemia Prot Cefepime HCl 2,000 mg/ Sodium (Chloride) 50 mls @ 100 mls/hr IV Q12H [facility]; Protocol Last Admin: 05/09/20 11:51 Dose: 100 mls/hr Documented by: Fentanyl 1,000 mcg/ Sodium (Chloride) 100 mls @ 0 mls/hr IV .Q0M [facility]; Protocol Last Titration: 05/08/20 15:40 Dose: Infused Documented by: Vancomycin HCl 1,500 mg/ (Sodium Chloride) 250 mls @ 166.667 mls/hr IV Q12H [facility]; Protocol Last Admin: 05/09/20 10:12 Dose: 166.7 mls/hr Documented by: Insulin Aspart (Novolog) 0 unit SUBCUT WM&BEDTIME [facility]; Protocol Last Admin: 05/09/20 18:30 Dose: Not Given Documented by: Isosorbide Mononitrate (Imdur) 30 mg PO DAILY [facility] Last Admin: 05/09/20 09:41 Dose: 30 mg Documented by: Lactulose (Constulose) 15 gm PO BID [facility] Last Admin: 05/09/20 18:04 Dose: 15 gm Documented by: Lisinopril (Prinivil) 2.5 mg PO DAILY [facility] Last Admin: 05/09/20 09:39 Dose: 2.5 mg Documented by: Metoprolol Tartrate (Lopressor) 25 mg PO BID [facility] Last Admin: 05/09/20 17:57 Dose: 25 mg Documented by: Nystatin (Nystatin Powder) 1 applic TOPICAL BID [facility] Last Admin: 05/09/20 18:30 Dose: Not Given Documented by: Pantoprazole Sodium (Protonix) 40 mg IVP Q12H [facility] Last Admin: 05/09/20 09:54 Dose: 40 mg Documented by: Polyethylene Glycol (Miralax) 17 gm PO BID [facility] Last Admin: 05/09/20 18:05 Dose: 17 gm Documented by: Senna/Docusate Sodium (Senna-S) 1 tab PO DAILY PRN PRN Reason: CONSTIPATION Vitals/I&O/Wt Last Vital Signs Temp 98.4 F 05/11/20 13:00 Pulse 99 05/11/20 18:00 Resp 38 H 05/11/20 18:00 BP 163/111 05/11/20 18:00 Pulse Ox 94 05/11/20 18:00 05/11/20 05/11/20 05/11/20 06:59 14:59 22:59 Intake Total 710 / 710 250 / 960 Output Total 3450 / 5600 1750 / 1750 450 / 2200 Balance -3450 / -4300 -1040 / -1040 -200 / -1240 Weight last 48 hrs Weight 322 lb 9 oz Weight 354 lb 2 oz Physical Exam Narrative: EXAM NARRATIVE: GENERAL: Patient is laying in the bed on high flow nasal cannula. She talks and communicate properly without any interruption. She is not short of breath. NECK: No jugular vein distension. HEENT: No cyanosis. No icterus. No pallor. HEART: Regular S1 and S2. No murmur, rub or gallop. LUNGS: No crackles bilaterally. ABDOMEN: Soft, nontender and nondistended. Positive bowel sounds. No guarding, rebound or tenderness. CENTRAL NERVOUS SYSTEM: Grossly nonfocal. EXTREMITIES: Lower extremities with 1+ edema bilaterally. Cellulitis has improved Urinary Catheter Management^: [place]: Cath Placed During This Visit: yes Reason for Continuing Indwelling Catheter: Accurate Measurement of Urinary Output in Critically Ill Patients Urinary Catheter Date of Insertion: 04/27/20 Urinary Catheter Time of Insertion: 22:16 Data : 05/11/20 03:45 05/11/20 03:45 Micro: Microbiology 05/06/20 09:10 Blood Culture - Final Blood NO GROWTH AFTER 5 DAYS 05/06/20 09:19 Blood Culture - Final Blood NO GROWTH AFTER 5 DAYS 05/10/20 13:22 Legionella Urinary Antigen - Final Urine Catheterized A&P Assessment and plan (1) Elevated troponin: Continue conservative management most likely type II. Patient also would not like to have left heart cath at the moment she would like to go home and see us as an outpatient after that she will decide. Status: Acute (2) Morbid obesity with alveolar hypoventilation: Stable on high flow oxygen Status: Acute (3) Acute respiratory failure with hypoxia and hypercapnia: Stable. Continue medicine. Status: Acute (4) Acute on chronic diastolic (congestive) heart failure: Well compensated now since she is in the hospital will continue to diurese with IV later she will be switched to oral Bumex. I will increase and titrate metoprolol to 37.5 twice daily. Status: Acute (5) Lower extremity cellulitis: Patient is on antibiotic. Continue. Status: Acute Qualifiers: Laterality: right Qualified Code(s): L03.115 - Cellulitis of right lower limb Additional A&P Information Will consider doing a myocardial perfusion imaging, to evaluate for any underlying coronary ischemia before the hospital discharge. May continue on the current medication for the time Attestations Medical Necessity Statement*: Require continuation hospitalization for above defined care Coding Level of Care Code Established Pt Acute Information Clerk for [facility] Kerri Patient Type Established History Detailed Exam Detailed Medical Decision Making Moderate Complexity Diagnoses Elevated troponin R79.89 Morbid obesity with alveolar hypoventilation E66.2 Acute respiratory failure with hypoxia and hypercapnia J96.01; J96.02 Acute on chronic diastolic (congestive) heart failure I50.33 Lower extremity cellulitis L03.115 Laterality: right
[2020-05-11 20:17] LABS: Glucose Point of Care 131 mg/dL (70-110)
--- NOTE | 2020-05-11 21:25 | PC.NURSE ---
2120 pt taken by bed to room 257 tolerated well RN at bedside call light in reach
[2020-05-12] VITALS (8 sets, daily range): BP systolic 135–148; BP diastolic 78–89; PULSE 83–92; RESP 16–21; TEMP 36.8–37.1; O2SAT 85–97
[2020-05-12] MEDS: bumetanide 0.25 mg/mL SDV 10 mL 2 MG IV ×2 (02:04→10:29)
[2020-05-12] MEDS: ipratropium-albuterol 3 mL Neb INHALATION ×2 (02:41→09:16)
[2020-05-12 07:00] LABS: Glucose Point of Care 94 mg/dL (70-110)
[2020-05-12] MEDS: azithromycin 250 mg Tablet 500 MG PO (08:29)
[2020-05-12] MEDS: BuSPIRONE 5 mg Tablet 7.5 MG PO (08:29)
[2020-05-12] MEDS: clopidogrel 75 mg Tablet PO (08:29)
[2020-05-12] MEDS: lisinopril 5 mg Tablet PO (08:30)
[2020-05-12] MEDS: isosorbide mononitrate ER 30 mg Tablet PO (08:30)
[2020-05-12] MEDS: escitalopram 10 mg Tablet PO (08:30)
[2020-05-12] MEDS: atorvastatin 40 mg Tablet 80 MG PO (08:30)
[2020-05-12] MEDS: metoprolol tartrate 25 mg Tablet PO (08:31)
[2020-05-12] MEDS: pantoprazole 40 mg SDV IVP (08:35)
--- NOTE | 2020-05-12 11:20 | PM.DCS ---
Discharge Providers Date of Admission: 04/26/20 22:15 Date of Discharge: May 12, 2020 Attending Provider at Admission: Vijay Zamarripa MD Attending Provider at Discharge: Liseth Narvaez MD Diagnoses at Discharge Discharge Diagnosis (1) Elevated troponin: Status: Acute (2) Morbid obesity with alveolar hypoventilation: Status: Acute (3) Acute respiratory failure with hypoxia and hypercapnia: Status: Acute (4) Acute on chronic diastolic (congestive) heart failure: Status: Acute (5) Lower extremity cellulitis: Status: Acute Qualifiers: Laterality: right Qualified Code(s): L03.115 - Cellulitis of right lower limb Reason for Visit Reason for Visit: multiple complaints,phy ref Hospital Course Discharge Summary: 35 year old Lady with morbid obesity, likely OHS and MARTINEZ, admitted on 05/12/2020 for acute hypoxic hypercapnic respiratory failure likely secondary to obesity hypoventilation syndrome and acute CHF secondary to demand ischemia and type 2 SD. W/up also revealed possible pneumonia fo which she was treated with ~10 days of iv antibiotics. Hospital course notable for prolonged intubation for ~ 2 weeks, then successfully extubatd with pulmonary/critical care input. Required initially Bipap and then heated HFNC, weaned down to NC at 7lpm now at discharge. She has diuresed well with iv Bumex, lost ~40 pounds. She underwent overnight oximetry study prior to discharge and is being arranged to have a Bipap at home. Prior to discharge, cardiology was previously planning to perform a left and right heart cath, however patient would like to hold off for now as she wishes to return home at this time. she will follow up as an outpatient .Home 02 veal perfromed prior to discharge Physical Exam Narrative: EXAM NARRATIVE: GEN: Awake, alert and oriented, no acute distress CVS: S1S2 N RS: CTA B/L Abd: Soft, nt/nd , bs+ TRAILER TECHNICIAN: no focal neuro deficits EXT: significantly improved lower extremity edema Urinary Catheter Management^: [place]: Cath Placed During This Visit: yes, but has since been removed by the nurse Reason for Continuing Indwelling Catheter: Decision to DC Catheter Urinary Catheter Date of Insertion: 04/27/20 Urinary Catheter Time of Insertion: 22:16 Date Urinary Catheter Removed: 05/12/20 Time Urinary Catheter Discontinued: 10:43 Discharge Data Data Completed and Pending: Completed Studies During Hospitalization Category Date Time Status CT angio chest PE protcl 10804 Rout ine Cat Scan 05/02/20 07:36 Completed CXRP [XR chest 1V portable 46407] R outine Exams 05/07/20 10:18 Completed CXRP [XR chest 1V portable 62968] S tat Exams 04/26/20 21:22 Completed XR chest 1V yady ble 39278 Routine Exams 04/27/20 12:10 Completed XR chest 1V yady ble 20438 Routine Exams 04/28/20 07:00 Completed XR chest 1V yady ble 46608 Routine Exams 04/29/20 07:00 Completed XR chest 1V yady ble 90465 Routine Exams 04/30/20 07:00 Completed XR chest 1V yady ble 41892 Routine Exams 05/01/20 07:00 Completed XR chest 1V yady ble 89310 Routine Exams 05/02/20 07:00 Completed XR chest 1V yady ble 87850 Routine Exams 05/04/20 06:00 Completed XR chest 1V yady ble 15635 Routine Exams 05/06/20 07:43 Completed XR chest 1V yady ble 72079 Routine Exams 05/08/20 06:00 Completed XR chest 1V yady ble 55165 Urgent Exams 04/26/20 19:29 Completed CV echo complete* 84440 Routine Ultrasound 04/27/20 23:40 [place] [address] Routin e Ultrasound 04/27/20 23:40 Completed Labs from last 24 hours 05/12/20 05/11/20 05/11/20 06:27 20:09 17:12 POC Glucose 94 131 97 05/11/20 11:33 POC Glucose 112 Vitals: Last Vital Signs Temp 98.2 F 05/12/20 03:00 Pulse 87 05/12/20 09:24 Resp 20 H 05/12/20 09:24 BP 148/88 05/12/20 07:00 Pulse Ox 97 05/12/20 09:24 Discharge Plan Discharge Patient Disposition: Home Condition: Stable Prescriptions: New atorvastatin 40 mg Tablet 80 mg PO DAILY 30 Days Qty: 30 RF: 0 isosorbide mononitrate 30 mg Tablet Extended Release 24 Hr 30 mg PO DAILY 30 Days Qty: 30 RF: 0 clopidogrel 75 mg Tablet 75 mg PO DAILY 30 Days Qty: 30 RF: 0 lisinopril 5 mg Tablet 5 mg PO DAILY 30 Days Qty: 30 RF: 0 Nystop 100,000 unit/gram Powder 1 applic topical BID 30 Days Qty: 30 RF: 0 bumetanide 2 mg tablet 2 mg PO BID 30 Days Qty: 60 RF: 0 buspirone 5 mg Tablet 7.5 mg PO BID Qty: 0 RF: 0 Continued triamcinolone acetonide 0.1 % ointment See Rx Instructions .ROUTE .COMPLEX RF: 0 escitalopram oxalate 10 mg tablet 10 mg PO DAILY RF: 0 cholecalciferol (vitamin D3) 1,250 mcg (50,000 unit) capsule 1,250 mcg PO Q7D RF: 0 Changed metoprolol tartrate 50 mg tablet 25 mg PO BID Qty: 0 RF: 0 Discontinued hydrochlorothiazide 12.5 mg tablet 12.5 mg PO BID RF: 0 Discharge Orders: Discharge Order (Routine); Ordered 05/12/20 Ordered By: Liseth Narvaez Other Ambulatory Orders: DME: BIPAP (Order) Location: None Selected Ordered By: Liseth Narvaez Referrals: Jose Meyers MD [Physician] - 7-10 days Micheline Martin FNP [Nurse Practitioner] - 1 week Discharge Diet: Usual diet and Cardiac Discharge Activity: Resume usual activity and Oxygen as instructed Discharge Attestations Time Spent in Discharge Care*: greater than 30 min Quality Metrics Clinical Quality Measures During this hospital stay, did patient experience: None Coding Level of Care Code Acute X Ray Developer for Chg Fwd Diagnoses Elevated troponin R79.89 Morbid obesity with alveolar hypoventilation E66.2 Acute respiratory failure with hypoxia and hypercapnia J96.01; J96.02 Acute on chronic diastolic (congestive) heart failure I50.33 Lower extremity cellulitis L03.115 Laterality: right
== END 2020-05-12 17:32 | disposition home or self-care (01) | DRG 870 ==
LOC: ER 21:45 → ICU 23:11 → MEDSURG 05-11 21:26
PROVIDERS: Emergency Medicine; Internal Medicine; Admitting Provider Internal Medicine; Visit Provider Student in an Organized Health Care Education/Training Program
DX: A41.9 Sepsis, unspecified organism (principal); J96.01 Acute respiratory failure with hypoxia; J96.02 Acute respiratory failure with hypercapnia; I50.31 Acute diastolic (congestive) heart failure; I21.A1 Myocardial infarction type 2; J18.9 Pneumonia, unspecified organism; E66.2 Morbid (severe) obesity with alveolar hypoventilation; Z68.43 Body mass index [BMI] 50.0-59.9, adult; L03.115 Cellulitis of right lower limb; J44.0 Chronic obstructive pulmonary disease with (acute) lower respiratory infection; R65.20 Severe sepsis without septic shock; F17.210 Nicotine dependence, cigarettes, uncomplicated; R21 Rash and other nonspecific skin eruption; I11.0 Hypertensive heart disease with heart failure; D75.1 Secondary polycythemia; I87.8 Other specified disorders of veins; I27.20 Pulmonary hypertension, unspecified; E87.6 Hypokalemia; F41.8 Other specified anxiety disorders
CPT/HCPCS: 12345; 31500; 36415; 36416; 36569; 36592; 36600; 51702; 71045; 71275; 80048; 80051; 80053; 80061; 80074; 80202; 81001; 82803; 82810; 82962; 83036; 83735; 83880; 83986; 84145; 84443; 84484; 84703; 85025; 85049; 85362; 85378; 85384; 85610; 85730; 87040; 87070; 87077; 87086; 87106; 87186; 87205; 87426; 87449; 87635; 87641; 93005; 93306; 93970; 94002; 94003; 94640; 94660; 94760; 94762; 94799; 96372; 96375; 97110; 97116; 97163; 97530; 99284; C9113; J0330; J0692; J1120; J1642; J1644; J1650; J1815; J1940; J2060; J2270; J2310; J2405; J2543; J2704; J2930; J3010; J3370; J3480; J3490; J7050; Q0144; Q9967

== ENCOUNTER → 2020-06-07 11:25 | Outpatient (BNVA) | payer SELFPAY | PROVIDERS: Visit Provider Nurse Practitioner Family | DX: I50.9 Heart failure, unspecified (principal); N39.0 Urinary tract infection, site not specified; Z79.899 Other long term (current) drug therapy | CPT/HCPCS: 80053; 81003; 83036; 85025 ==

== ENCOUNTER → 2020-07-12 11:29 | Outpatient (BNVA) | payer SELFPAY | PROVIDERS: PCP Family Medicine; Visit Provider Nurse Practitioner Family | DX: M19.90 Unspecified osteoarthritis, unspecified site (principal); E11.9 Type 2 diabetes mellitus without complications; I10 Essential (primary) hypertension; E78.2 Mixed hyperlipidemia | CPT/HCPCS: 36415; 80053; 85025; 86140 ==

== ENCOUNTER → 2020-08-30 10:20 | Outpatient (BNVA) | payer SELFPAY | PROVIDERS: PCP Family Medicine; Visit Provider Family Medicine | DX: I10 Essential (primary) hypertension (principal); R60.9 Edema, unspecified | CPT/HCPCS: 80053; 83880; 84443 ==

== ENCOUNTER → 2020-09-29 00:01 | Outpatient (BNVA) | payer OTHER, SELFPAY | PROVIDERS: PCP Nurse Practitioner Family; Visit Provider Nurse Practitioner Family | DX: E78.2 Mixed hyperlipidemia (principal); I10 Essential (primary) hypertension; E11.9 Type 2 diabetes mellitus without complications; E55.9 Vitamin D deficiency, unspecified; E61.2 Magnesium deficiency; I50.9 Heart failure, unspecified; Z79.899 Other long term (current) drug therapy | CPT/HCPCS: 80053; 80061; 81003; 82306; 83036; 83735; 84439; 84443; 84481; 85025; 87635 ==

== ENCOUNTER → 2020-10-07 16:50 | Outpatient (BNVA) | payer OTHER, SELFPAY | PROVIDERS: PCP Nurse Practitioner Family; Visit Provider Internal Medicine Pulmonary Disease | DX: Z20.828 Contact with and (suspected) exposure to other viral communicable diseases (principal) | CPT/HCPCS: 87635 ==

== ENCOUNTER 2020-10-12 09:48 | Outpatient (CLI) | payer OTHER, SELFPAY ==
--- NOTE | 2020-10-12 10:26 | PFTS_ITS ---
Date of Study:10/12/2020 Date of Dictation: 10/12/2020 MECHANICS: Forced vital capacity (FVC) is normal Forced expiratory volume in one second (FEV1) is normal. FEV1/FVC is normal. FLOW VOLUME LOOP: normal . LUNG VOLUMES: not measured DIFFUSING CAPACITY FOR CARBON MONOXIDE: not measured . INTERPRETATION: The spirometry is normal. Lung volumes and gas transfer not measured. Please correlate clinically. MTDD
--- NOTE | 2020-10-12 10:56 | PFTS_ITS ---
Date of Study:10/12/20 Date of Dictation: 10/13/2020 MECHANICS: Forced vital capacity (FVC) is normal. Forced expiratory volume in one second (FEV1) is normal. FEV1/FVC is normal. FLOW VOLUME LOOP: normal. . LUNG VOLUMES: Total lung capacity (TLC) is normal.. Residual volume (RV) is normal.. DIFFUSING CAPACITY FOR CARBON MONOXIDE:normal. . INTERPRETATION: The pulmonary function tests are normal. MTDD
== END 2020-10-12 09:49 | disposition home or self-care (01) ==
LOC: RT 09:51
PROVIDERS: PCP Nurse Practitioner Family; Visit Provider Internal Medicine Pulmonary Disease
DX: R06.02 Shortness of breath (principal)
CPT/HCPCS: 94010; 94726; 94729

== ENCOUNTER 2020-11-18 20:00 | Outpatient (CLI) | payer OTHER, SELFPAY | END 2020-11-18 20:01 | disposition home or self-care (01) | LOC: SLEEP 11-19 07:58 | PROVIDERS: PCP Nurse Practitioner Family; Visit Provider Internal Medicine Pulmonary Disease | DX: G47.33 Obstructive sleep apnea (adult) (pediatric) (principal); E66.01 Morbid (severe) obesity due to excess calories | CPT/HCPCS: 95810 ==

== ENCOUNTER → 2020-11-23 14:31 | Outpatient (BNVA) | payer OTHER, SELFPAY | PROVIDERS: PCP Nurse Practitioner Family; Referring Provider Internal Medicine Cardiovascular Disease; Visit Provider Internal Medicine | DX: E11.59 Type 2 diabetes mellitus with other circulatory complications (principal); I25.10 Atherosclerotic heart disease of native coronary artery without angina pectoris; E28.2 Polycystic ovarian syndrome; E66.01 Morbid (severe) obesity due to excess calories; I50.32 Chronic diastolic (congestive) heart failure; R63.5 Abnormal weight gain | CPT/HCPCS: 99205 ==

== ENCOUNTER → 2020-11-26 12:03 | Outpatient (BNVA) | payer OTHER, SELFPAY | PROVIDERS: PCP Nurse Practitioner Family; Visit Provider Internal Medicine | DX: E11.9 Type 2 diabetes mellitus without complications (principal); I50.32 Chronic diastolic (congestive) heart failure | CPT/HCPCS: 82530; 82570 ==

== ENCOUNTER → 2020-12-24 11:16 | Outpatient (BNVA) | payer OTHER, SELFPAY | PROVIDERS: PCP Nurse Practitioner Family; Visit Provider Nurse Practitioner Family | DX: N91.2 Amenorrhea, unspecified (principal); E11.9 Type 2 diabetes mellitus without complications; I50.32 Chronic diastolic (congestive) heart failure; I11.0 Hypertensive heart disease with heart failure | CPT/HCPCS: 80048; 81025; 83735; 85025 ==

== ENCOUNTER → 2020-12-28 11:52 | Outpatient (BNVA) | payer OTHER, SELFPAY | PROVIDERS: PCP Nurse Practitioner Family; Visit Provider Nurse Practitioner Family | DX: D58.2 Other hemoglobinopathies (principal) | CPT/HCPCS: 85025 ==

== ENCOUNTER 2021-01-03 20:00 | Outpatient (CLI) | payer OTHER, SELFPAY | END 2021-01-03 20:01 | disposition home or self-care (01) | LOC: SLEEP 01-04 09:32 | PROVIDERS: PCP Nurse Practitioner Family; Visit Provider Internal Medicine Pulmonary Disease | DX: G47.33 Obstructive sleep apnea (adult) (pediatric) (principal) | CPT/HCPCS: 95811 ==

== ENCOUNTER → 2021-01-04 10:45 | Outpatient (BNVA) | payer OTHER, SELFPAY | PROVIDERS: PCP Nurse Practitioner Family; Visit Provider Obstetrics & Gynecology | DX: Z12.4 Encounter for screening for malignant neoplasm of cervix (principal); I10 Essential (primary) hypertension; N92.6 Irregular menstruation, unspecified | CPT/HCPCS: 88175 ==

== ENCOUNTER → 2021-01-12 00:01 | Outpatient (BNVA) | payer OTHER, SELFPAY | PROVIDERS: PCP Nurse Practitioner Family; Visit Provider Nurse Practitioner Family | DX: E11.9 Type 2 diabetes mellitus without complications (principal); I10 Essential (primary) hypertension; R56.9 Unspecified convulsions | CPT/HCPCS: 80053; 83036; 85025 ==

== ENCOUNTER → 2021-01-19 10:52 | Outpatient (BNVA) | payer OTHER, SELFPAY | PROVIDERS: PCP Nurse Practitioner Family; Visit Provider Obstetrics & Gynecology | DX: R87.610 Atypical squamous cells of undetermined significance on cytologic smear of cervix (ASC-US) (principal); R87.810 Cervical high risk human papillomavirus (HPV) DNA test positive; E11.9 Type 2 diabetes mellitus without complications | CPT/HCPCS: 81025; 88305 ==